=== PATIENT | female | born 1940 | race Caucasian/White ===

== ENCOUNTER 2021-12-31 02:03 | Emergency (ER) | payer MEDICARE ==
--- OUTSIDE RECORDS SUMMARY | 2021-12-31 02:07 | XMS REPORT | Continuity of Care Document ---
:1940 Author Organization [facility] t Address [address] [place] [id number] Care Team Providers Name Role Phone Les ANGEL JR Primary Care Physician Unavailable Deshazo_T Attending Clinician Unavailable CURRY_S Attending Clinician Unavailable RADIOLOGY Attending Clinician Unavailable Radiology Attending Clinician Unavailable Deshazo_T Admitting Clinician Unavailable CURRY_S Admitting Clinician Unavailable Payers Payer Name Policy Type Policy Number Effective Date Expiration Date [facility] [id number] 2020 (MEDICARE 00:00:00 REPLACEMENT HMO) MEDICARE PART A \T\ [id number] 2003 B 00:00:00 [employer] INDE[employer]ITY [id number] 2019 2021 00:00:00 00:00:00 Problems Condition Condition Condition Status Onset Resolution Last Treating Co mments Source Name Details Category Date Date Treatment Clinician Date G47.33 Diagnosis Active 2017-11-17 Mem oria 11-01 09:10:00 l G47.33 00:00: [place] 00 Active 11/01/2017 [facility] [place] ABNORMAL Diagnosis Active 2017-10-25 M emoria STRESS 10-25 14:58:00 l TEST ABNORMAL 14:58: Kevin n STRESS 00 TEST Active 10/25/2017 [facility] [place] ABN STESS Diagnosis Active 2017-10-27 Memoria TEST 10-20 13:32:00 l ABN 00:00: [place] STESS TEST 00 Active 10/20/2017 [place] JUSTIN Diagnosis Active 2017-10-06 Mem oria 3-08 14:13:00 l JUSTIN 00:00: [place] 00 Active 09/30/2017 [place] R06.02 Diagnosis Active 2017-10-13 Mem oria I11.9 09-21 08:59:00 l R06.02 00:00: [place] I11.9 00 Active 09/21/2017 [place] SOB Diagnosis Active 2017-09-13 Mem oria 2-08 11:00:00 l SOB 00:00: [place] 00 Active 09/02/2017 [place] Shortness Problem 2018-01-19 Me moria of breath 12:11:13 l [place] Shortness of breath 01/19/2018 [place] Palpitatio Problem 2018-02-02 M emoria ns 13:10:43 l [place] Palpitatio ns 02/02/2018 [place] Obstructiv Problem Active 2019-07-14 M emoria e sleep 05:56:20 l apnea [place] syndrome Obstructiv e sleep apnea syndrome Active Problem 07/14/2019 eCW: [facility] [place] Hypertensi Problem 2018-02-02 M emoria ve heart 13:10:43 l disease [place] without Hypertensi heart ve heart failure disease without heart failure 02/02/2018 [place] Type 2 Problem 2018-02-02 Memor ia diabetes 13:10:43 l mellitus Type 2 Kevin n without diabetes complicati mellitus ons without complicati ons 02/02/2018 [place] Hyperlipid Problem 2018-02-02 M emoria emia, 13:10:43 l unspecifie Kevin n d Hyperlipid emia, unspecifie d 02/02/2018 [place] Personal Problem 2018-02-02 Mem oria history of 13:10:43 l nicotine Personal Herm daniel dependence history of nicotine dependence 02/02/2018 [place] Morbid Problem 2018-02-02 Memor ia (severe) 13:10:43 l obesity Morbid [place] due to (severe) excess obesity calories due to excess calories 02/02/2018 [place] Body mass Problem 2018-02-02 Me moria index 13:10:43 l (BMI) Body [place] 40.0-44.9, mass index adult (BMI) 40.0-44.9, adult 02/02/2018 [facility] senior care Problem Active 2019-07-14 Me moria current 05:56:20 l use of Long [place] insulin term current use of insulin Active Problem 07/14/2019 eCW: [facility] [place] Hyperlipid Problem Resolve 2019-10-26 Memoria emia d 23:06:29 l (disorder) Kevin n Hyperlipid emia (disorder) Resolved Problem 10/26/2019 [facility] [facility] [place], [facility] Dyspnea Problem Active 2019-10-26 [place] valdemar (finding) 23:06:29 l Dyspnea [place] (finding) Active Problem 10/26/2019 [facility], [facility] [place], [facility] Hypertensi Problem Active 2019-10-26 M emoria ve 23:06:29 l disorder, [place] systemic Hypertensi arterial ve (disorder) disorder, systemic arterial (disorder) Active Problem 10/26/2019 [facility], [facility] [place], [facility] Hypertensi Problem Active 2019-10-26 M emoria ve heart 23:06:29 l disease [place] (disorder) Hypertensi ve heart disease (disorder) Active Problem 10/26/2019 [facility], [facility] [place], [facility] Morbid Problem Active 2019-10-26 Memor ia obesity 23:06:29 l (disorder) Morbid Herm daniel obesity (disorder) Active Problem 10/26/2019 [facility], [facility] [place], [facility] Obstructiv Problem Active 2019-10-26 M emoria e sleep 23:06:29 l apnea [place] syndrome Obstructiv (disorder) e sleep apnea syndrome (disorder) Active Problem 10/26/2019 [facility], [facility] [place], [facility] Palpitatio Problem Active 2019-10-26 M emoria ns 23:06:29 l (finding) Dionte Palpitatio ns (finding) Active Problem 10/26/2019 [facility] [place], [facility] [place] Thallium Problem Active 2019-10-26 Mem oria stress 23:06:29 l test Thallium Kevin n abnormal stress (finding) test abnormal (finding) Active Problem 10/26/2019 [facility] [place], [facility] BMI Problem Active 2019-07-14 Memor ia 38.0-38.9, 05:56:20 l adult BMI Dionte 38.0-38.9, adult Active Problem 07/14/2019 eCW: [facility] [place] LVH (left Problem Active 2019-07-14 Me moria ventricula 05:56:20 l r LVH [place] hypertroph (left y) ventricula r hypertroph y) Active Problem 9 eCW: [facility] [place] Type 2 Problem Active 2019-07-14 Memor ia diabetes 05:56:20 l mellitus Type 2 Kevin n with diabetes hyperglyce mellitus manas, with unspecifie hyperglyce d long manas, term unspecifie insulin d long use status term insulin use status Active Problem 07/14/2019 eCW: [facility] [place] Primary Problem Active 2019-07-14 [place] valdemar osteoarthr 05:56:20 l itis of Primary Kevin n right knee osteoarthr itis of right knee Active Problem 07/14/2019 eCW: [facility] BMI Problem Active 2019-07-14 Memor ia 37.0-37.9, 05:56:20 l adult BMI [place] 37.0-37.9, adult Active Problem 07/14/2019 eCW: [facility] Chronic Diagnosis Active 2019-07-14 Me moria kidney 05:56:20 l disease Chronic Kevin n (CKD) kidney stage disease G3b/A2, (CKD) moderately stage decreased G3b/A2, glomerular moderately filtration decreased rate (GFR) glomerular between filtration 30-44 rate (GFR) mL/min/1.7 between 3 square 30-44 meter and mL/min/1.7 albuminuri 3 square a meter and creatinine albuminuri ratio a between creatinine 30-299 ratio mg/g between 30-299 mg/g Active Diagnosis 07/14/2019 eCW: [facility] [place] Insomnia Diagnosis Active 2019-07-14 M emoria 05:56:20 l Insomnia Kevin n Active Diagnosis 07/14/2019 eCW: [facility] Sleep Problem Active 2019-07-14 Memor ia disorder 05:56:20 l Sleep [place] disorder Active Problem 07/14/2019 eCW: [facility] Other Problem Active 2019-07-14 Memor ia chronic 05:56:20 l pain Other [place] chronic pain Active Problem 07/14/2019 eCW: [facility] Mixed Problem Active 2019-07-14 Memor ia hyperlipid 05:56:20 l emia Mixed [place] hyperlipid emia Active Problem 07/14/2019 eCW: [facility] Age-relate Problem Active 2019-07-14 M emoria d 05:56:20 l osteoporos Kevin n is without Age-relate current d pathologic osteoporos al is without fracture current pathologic al fracture Active Problem 07/14/2019 eCW: [facility] Major Diagnosis Active 2019-07-14 Mem oria depressive 05:56:20 l disorder 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, with in full single remission episode, in full remission Active Diagnosis 07/14/2019 eCW: [facility] Encounter Diagnosis Active 2019-07-14 Memoria for 05:56:20 l immunizati Kevin n on Encounter for immunizati on Active Diagnosis 07/14/2019 eCW: [facility] Leg edema Diagnosis Active 2019-07-11 Memoria 05:33:18 l Leg [place] edema Active Diagnosis 07/11/2019 eCW: [facility] Viral Diagnosis Active 2019-07-10 Mem oria upper 05:11:22 l respirator Viral Autumn nn y tract upper infection respirator y tract infection Active Diagnosis 07/10/2019 eCW: [facility] Encounter Diagnosis Active 2019-07-10 Memoria for 05:11:22 l therapeuti Kevin n c drug Encounter monitoring for therapeuti c drug monitoring Active Diagnosis 07/10/2019 eCW: [facility] Sebaceous Diagnosis Active 2019-07-05 Memoria cyst 05:56:56 l [place] Sebaceous cyst Active Diagnosis 07/05/2019 eCW: [facility] Cellulitis Diagnosis Active 2019-07-05 Memoria of 05:56:56 l abdominal [place] wall Cellulitis of abdominal wall Active Diagnosis 07/05/2019 eCW: [facility] Chills Diagnosis Active 2019-07-08 Mem oria (without 05:25:25 l fever) Chills [place] (without fever) Active Diagnosis 07/08/2019 eCW: [facility] Subacute Diagnosis Active 2019-07-08 M emoria maxillary 05:25:25 l sinusitis Subacute Her back maxillary sinusitis Active Diagnosis 07/08/2019 eCW: [facility] Body aches Diagnosis Active 2019-07-08 Memoria 05:25:25 l Body [place] aches Active Diagnosis 07/08/2019 eCW: [facility] Cough Diagnosis Active 2019-07-08 Mem oria 05:25:25 l Cough [place] Active Diagnosis 07/08/2019 eCW: [facility] Encounter Diagnosis Active 2019-07-14 Memoria for other 05:56:20 l general Dion[place] examinatio Encounter n for other general examinatio n Active Diagnosis 07/14/2019 eCW: [facility] Fatigue, Diagnosis Active 2019-07-14 M emoria unspecifie 05:56:20 l d type Fatigue, Kevin n unspecifie d type Active Diagnosis 07/14/2019 eCW: [facility], JERMAINE Essential Diagnosis Active 2018-01-19 2019-07-14 Memoria hypertensi 10-19 12:11:13 05:56:20 l on 03:30: Dionte Essential 13 hypertensi on Active Diagnosis 07/14/2019 eCW: [facility], JERMAINE History of Past Illness Condition Condition Condition Status Onset Resolution Last Treating Co mments Source Name Details Category Date Date Treatment Clinician Date Atheroscle Problem 2018-02-02 2018-02-02 Memoria rotic 11-04 13:10:43 13:10:43 l heart 03:53: [place] disease of [place] [address] [place] ro[place] 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 [place] angina coronary pectoris artery without angina pectoris 8 02/02/2018 [facility] Abnormal Problem 2018-01-31 2018-01-31 Memoria result of 11-02 13:58:17 13:58:17 l other Abnormal 04:27: Kevin valle cardiovasc result of 53 ular other function cardiovasc study ular function study 11/02/2017 01/31/2018 ANNA FLOYD [place] Allergies, Adverse Reactions, Alerts Allergy Allergy Status Severity Reaction(s) Onset Inactive Treating Comm ents Source Name Type Date Date Clinician Codeine Codeine Active Info Not Memori a Phosphat Phosphat Available 03-22 l e e 00:00: Aromatic Aromatic Active Info Not Tigre valdemar Inhalant Inhalant Available 03-22 l s s 00:00: Aromasin Aromasin Active Info Not Tigre valdemar Available 03-22 l 00:00: acr acr Active Info Not Memoria Available 03-22 l 00:00: NO KNOWN Drug Active Univers ALLERGIE Class ity of [facility] E-Mycin E-Mycin Active Roddyoria l [place] Social History Smoking Status Start Date Stop Date Source Social History 2017-11-24 13:51:35 2017-11-24 13:51:[facility] Ordered Filled Start Stop Current Ordering Indication Dosage Frequency Signature Comments Components Source Medication Medication Date Date Medication? Clinician (SIG) Name Name Amlodipine 2018-07 Yes Naima 1 tablet M emoria Besylate 2-20 Chin l 05:56: Dionte 20 Hydrochloro 2018-07 Yes Naima 1 tablet Memoria thiazide 2-20 Chin in the l 05:56: morning [place] 20 Metoprolol 2018-07 Yes Naima 1 capsule Memoria Succinate 2-20 Chin l 05:56: [place] 20 Amlodipine 2018-07 Yes Naima 1 tablet M emoria Besylate 2-20 Chin l 05:56: [place] 20 Zolpidem 2018- Yes Naima 1 tablet Mem oria Tartrate 2-20 Chin at bedtime l 05:56: [place] 20 Lisinopril 2018- Yes Naima 1 tablet M emoria 2-20 Chin l 05:56: [place] 20 CoQ-10 2018-07 Yes Naima 1 capsule Tigre valdemar 2-20 Chin with a l 05:56: meal Dion[place] 20 Belsomra 2018-07 Yes Naima once at Tigre valdemar 2-20 Chin bedtime l 05:56: [place] 20 Claritin-D 2018-07 Yes Naima 1 tablet M emoria 12 Hour 2-20 Chin as needed l 05:56: Escitalopra 2018- Yes Naima 1 tablet Memoria m Oxalate 2-20 Chin l 05:56: Metformin 2018- Yes Naima 1 tablet Me moria HCl 2-20 Chin with meals l 05:56: Lantus 2018- Yes [place]aim[place] not Memoria SoloStar 2-20 Chin defined l 05:56: Vitamin C 2018- Yes Naima not Memori a 2-20 Chin defined l 05:56: Amlodipine 2018- Yes Naima 1 tablet M emoria Besylate 2-14 Chin l 05:25: Zolpidem 2018- Yes Naima 1 tablet Mem oria Tartrate 0-11 Chin at bedtime l 00:00: Xultophy 2019-1 Yes Naima 50 units Mem oria 0-04 Chin l 00:00: Trazodone 2019-0 Yes Naima 1 tablet Me moria HCl 6-12 Chin at bedtime l 00:00: Belsomra 2019-0 Yes Naima once at Tigre valdemar 4-05 Chin bedtime l 00:00: Xultophy 2019-0 Yes Naima 50 units Mem oria 3-20 Chin l 00:00: Crestor 2019-0 Yes Naima 1 tablet Tigre valdemar 2-20 Chin l 00:00: Xultophy 2019-0 Yes Naima 20 units Mem oria 2-19 Chin once l 00:00: daily, titrate as directed Amoxicillin 2017- Yes Naima 1 tablet Memoria -Pot 2-19 Chin l Clavulanate 00:00: Kevin Tessalon 2017- Yes Naima 1 capsule Me moria Perles 2-19 Chin as needed l 00:00: Bactroban 2017- Yes Naima 1 Memori a 1-12 Chin applicatio l 00:00: n to affected area Belsomra 2018- Yes Naima 1 tablet Mem oria 1-12 Chin at bedtime l 00:00: as needed [place] 00 24 HR 2017-07 Yes 50 mg = 1 Memoria Metoprolol 0-05 tab, PO, l Tartrate 50 19:07: Daily, # Roger rmann MG Extended 90 tab, 3 Release Refill(s), Tablet Pharmacy: [Toprol] [facility] cy #[id number] 24 HR 2017-07 No 50 mg = 1 Memoria Metoprolol 0-02 tab, PO, l Tartrate 50 15:38: Daily, X Roger rmann MG Extended day, # Release 90 tab, 3 Tablet Refill(s), [Toprol] Pharmacy: [id number] Naima 40 units Mem oria 9-20 Chin once l 00:00: daily, titrate as directed Pravastatin Yes Naima 1 tablet Memoria Sodium 6-14 Chin l 00:00: CPAP Yes See Memoria Machine - Instructio l 12:59: ns, 6-12 Dionte 00 cm auto-titra ting downloadab le device E0601 with heated humidity 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 G47.33 with PAP supplies, # 1 ea, 0 Refill(s) CPAP Yes 1 ea, Memoria Machine 11-24 MISC, l 16:12: Daily, Auto CPAP 6-12 cm H20 with associated supplies and heated humidifier , # 1 ea, 0 Refill(s) Ibuprofen Yes 400 mg = 2 Me moria 200 MG Oral 4-04 tab, PO, l Tablet 18:58: Q4H, PRN Pain, # 120 tab, 0 Refill(s) Aspirin 81 Yes 81 mg = 1 Me moria MG Enteric 4-04 tab, PO, l Coated 18:58: Daily, # Dionte Tablet 00 90 tab, 3 Refill(s) MegaKrill Yes 0 Memoria 4-04 Refill(s) l 18:58: Dion[place] 00 Sodium No 1,000 mL, Memori a Chloride 4-04 IV, 75 l 0.9% IV 12:00: ml/hr, Dionte 00 ONCALL, Start date: 10/27/17 7:00:00 CDT, Duration: 1, 1,000 ml Aminophylli No 50 mg, 2 Me moria ne 3-21 mL, Route: l 16:19: IV, Drug form: INJ, ONCE, Dosing Weight 102, kg, Start date: 10/13/17 11:19:00 CDT, Stop date: 10/13/17 11:19:00 CDT 24 HR Yes 50 mg = 1 Memoria Metoprolol 2-21 tab, PO, l Tartrate 50 20:54: Daily, # He rmann MG Extended 30 tab, 5 Release Refill(s), Tablet Pharmacy: [Toprol] [facility]/[employer] [facility] cy #[id number] Claritin Yes 5 mg, Memoria 2-21 Daily, PRN l 20:52: as needed for allergy symptoms, 0 Refill(s) Hydrochloro Yes 25 mg, PO, Memoria thiazide 2-21 Daily, 0 l 20:51: Refill(s) Dion[place] 00 3 ML Yes 38 units, Memoria Insulin 2-21 SUB-Q, l Glargine 20:51: Daily, # 3 Her back 100 UNT/ML 00 mL, 0 Prefilled Refill(s) Syringe [Lantus] 3 ML No baldemar, Memoria liraglutide 2-21 SUB-Q, l 6 MG/ML 20:51: Daily, # 6 Herm daniel Prefilled 00 mL, 3 Syringe Refill(s) [Victoza] escitalopra Yes 10 mg = 1 M emoria m 10 mg 2-21 tab, PO, l oral tablet 20:49: Daily, # Roger rmann 00 30 tab, 0 Refill(s) CoQ10 No 300 mg, Memoria 2-21 PO, Daily, l 20:49: 0 Dion[place] 00 Refill(s) zolpidem 5 2018 Yes 5 mg = 1 Mem oria mg oral 2-21 tab, PO, l tablet 20:49: Bedtime, PRN Sleep, 0 Refill(s) amLODIPine Yes 2.5 mg = 1 M emoria 2.5 mg oral 2-21 tab, PO, l tablet 20:49: Daily, # [place] 00 30 tab, 0 Refill(s) metFORMIN Yes 1,000 mg = Me moria 1000 mg 2-21 1 tab, PO, l oral 20:49: Daily, # [place] tablet, 00 30 tab, 0 extended Refill(s) release Metformin 2017- Yes Naima 1 tablet Me moria HCl 1-13 Chin with meals l 00:00: Dion[place] 00 Immunizations Ordered Immunization Filled Immunization Date Status Commen ts Source Name Name Jacob 2019-03-22 Completed [facility] 00:00:00 [place] Prevnar 13 (MCR 2018-10-12 Completed [facility] ONLY) 00:00:00 [place] Vital Signs Vital Name Observation Time Observation Value Comments Source Weight 2019-03-22 19:15:00 [facility] [place] Temperature Oral (F) 2019-03-22 19:15:00 97.6 F [facility] [place] Heart Rate 2019-03-22 19:15:00 [facility] [place] Diastolic (mm Hg) 2019-03-22 19:15:00 Mem orial [place] Systolic (mm Hg) 2019-03-22 19:15:00 Tigre rial [place] Weight 2019-01-04 20:30:00 [facility] [place] Temperature Oral (F) 2019-01-04 20:30:00 98.2 F [facility] [place] Heart Rate 2019-01-04 20:30:00 [facility] [place] Diastolic (mm Hg) 2019-01-04 20:30:00 Mem orial [place] Systolic (mm Hg) 2019-01-04 20:30:00 Tigre rial [place] Weight 2018-10-12 20:45:00 [facility] [place] Temperature Oral (F) 2018-10-12 20:45:00 98.5 F [facility] [place] Heart Rate 2018-10-12 20:45:00 [facility] [place] Diastolic (mm Hg) 2018-10-12 20:45:00 Mem orial [place] Systolic (mm Hg) 2018-10-12 20:45:00 Tigre rial [place] Weight 2018-09-13 20:00:00 [facility] [place] Temperature Oral (F) 2018-09-13 20:00:00 98.2 F [facility] [place] Heart Rate 2018-09-13 20:00:00 [facility] [place] Diastolic (mm Hg) 2018-09-13 20:00:00 Mem orial [place] Systolic (mm Hg) 2018-09-13 20:00:00 Tigre rial [place] Weight 2018-07-13 20:45:00 [facility] [place] Temperature Oral (F) 2018-07-13 20:45:00 97.7 F [facility] [place] Heart Rate 2018-07-13 20:45:00 [facility] [place] Diastolic (mm Hg) 2018-07-13 20:45:00 Mem orial [place] Systolic (mm Hg) 2018-07-13 20:45:00 Tigre rial [place] Weight 2018-06-06 20:15:00 [facility] [place] Temperature Oral (F) 2018-06-06 20:15:00 97.7 F [facility] [place] Heart Rate 2018-06-06 20:15:00 [facility] [place] Diastolic (mm Hg) 2018-06-06 20:15:00 Mem orial [place] Systolic (mm Hg) 2018-06-06 20:15:00 Tigre rial [place] Height 2018-03-09 20:18:00 160.02 cm [facility] [place] Heart Rate 2018-03-09 20:18:00 [facility] [place] Weight 2018-03-09 20:18:00 [facility] [place] BMI Calculated 2018-03-09 20:18:00 Memori al [place] Systolic (mm Hg) 2018-03-09 20:18:00 Tigre rial [place] Diastolic (mm Hg) 2018-03-09 20:18:00 Mem orial [place] Height 2017-11-24 13:50:00 160.02 cm [facility] [place] Weight 2017-11-24 13:50:00 [facility] [place] BMI Calculated 2017-11-24 13:50:00 Memori al [place] Heart Rate 2017-11-24 13:50:00 [facility] [place] Systolic (mm Hg) 2017-11-24 13:50:00 Tigre rial [place] Diastolic (mm Hg) 2017-11-24 13:50:00 Mem orial [place] Weight 2017-11-05 15:06:00 [facility] [place] BMI Calculated 2017-11-05 15:06:00 Memori al [place] Systolic (mm Hg) 2017-11-05 15:06:00 Tigre rial [place] Diastolic (mm Hg) 2017-11-05 15:06:00 Mem orial [place] Height 2017-11-05 15:06:00 152.4 cm [facility] [place] Heart Rate 2017-11-05 15:06:00 [facility] [place] BMI Calculated 2017-10-25 19:40:00 Memori al [place] Height 2017-10-25 19:40:00 160.02 cm [facility] [place] Weight 2017-10-25 19:40:00 [facility] [place] Heart Rate 2017-10-18 16:32:00 [facility] [place] Systolic (mm Hg) 2017-10-18 16:32:00 Tigre rial [place] Diastolic (mm Hg) 2017-10-18 16:32:00 Mem orial [place] Height 2017-10-18 16:32:00 160.02 cm [facility] [place] Weight 2017-10-18 16:32:00 [facility] [place] BMI Calculated 2017-10-18 16:32:00 Memori al [place] BMI Calculated 2017-10-15 15:01:00 Memori al [place] Weight 2017-10-15 15:01:00 [facility] [place] Height 2017-10-15 15:01:00 160.02 cm [facility] [place] Systolic (mm Hg) 2017-10-15 15:01:00 Tigre rial [place] Diastolic (mm Hg) 2017-10-15 15:01:00 Mem orial [place] Heart Rate 2017-10-15 15:01:00 [facility] [place] Height 2017-10-13 14:26:00 160.02 cm [facility] [place] Weight 2017-10-13 14:26:00 [facility] [place] BMI Calculated 2017-10-13 14:26:00 Memori al [place] Height 2017-09-15 20:34:00 160.02 cm [facility] [place] Weight 2017-09-15 20:34:00 [facility] [place] BMI Calculated 2017-09-15 20:34:00 Memori al [place] Heart Rate 2017-09-15 20:34:00 [facility] [place] Systolic (mm Hg) 2017-09-15 20:34:00 Tigre rial [place] Diastolic (mm Hg) 2017-09-15 20:34:00 Mem orial [place] Weight 2017-09-13 19:46:00 [facility] [place] BMI Calculated 2017-09-13 17:40:00 Memori al [place] Height 2017-09-13 17:40:00 160.02 cm [facility] [place] Procedures This patient has no known procedures. Encounters Start End Encounter Admission Attending Care Care Encounter Source Date/Time Date/Time Type Type Clinicians Facility Department ID 2021-11-17 2021-11-17 Outpatient Deshazo_T [facility] [id number] -2021 [facility] 07:03:00 07:03:00 042 [facility] 2021-11-13 2021-11-13 [place] [facility] [place] [id number] [facility] 02:47:00 02:47:00 042 Medica l Group 2021-03-18 2021-03-18 Outpatient CURRY_S [facility] [id number] [facility] 03:30:00 03:30:00 [id number] Medica l Group 2021-02-20 2021-02-20 Outpatient CURRY_S [facility] G [id number] [facility] 06:13:00 06:13:00 0729 Medica l Group 2019-10-23 2019-10-25 Phone nullFlavo MNA [id number] Memoria 15:43:36 04:59:59 Message r Neuroscienc 09 l e [facility] 2019-09-21 2019-09-21 Ambulatory nullFlavo MNA [id number] Memoria 16:00:00 16:00:00 Pre-Reg r Neuroscienc 10 l e [facility] 2019-09-20 2019-09-20 Outpatient R RADIOLOGY [facility] [id number] Univers 09:48:52 23:59:00 [facility] 2019-09-20 2019-09-20 Hospital Radiology [facility] [id number] 09:48:00 23:59:00 Encounter [place] [id number] [place] [id number] [place] [address] [id number] 2019-09-20 2019-09-20 [facility] Radiology [facility] [id number] 09:45:00 09:47:00 Encounter [place] [id number] [place] [id number] [place] [address] [id number] 2019-09-20 2019-09-20 Outpatient R RADIOLOGY [facility] [id number] Univers 00:00:00 00:00:00 [id number] [facility] 2019-08-25 2019-08-25 [facility] Radiology [facility] [id number] 10:15:00 23:59:00 Encounter [place] [id number] [place] [id number] [place] [id number] 2018-04-29 2018-05-01 Phone nullFlavo MG [id number] Memoria 17:42:00 04:59:59 Message r Cardiology 08 l [facility] 2018-04-26 2018-04-28 Phone nullFlavo MG [id number] Memoria 13:57:00 04:59:59 Message r Cardiology 07 l [facility] 2018-04-01 2018-04-01 Ambulatory nullFlavo [facility] [id number] Memoria 15:30:00 15:30:00 Pre-Reg r Cardiology 09 l [facility] 2018-03-09 2018-03-10 Outpatient nullFlavo [facility] [id number] Memoria 20:15:00 04:59:59 r Cardiology 08 l [place] 2018-02-07 2018-02-07 [place] [id number] Memoria 16:15:00 16:15:00 Pre-Reg r Cardiology 06 l [place] 2017-12-30 2017-12-30 Ambulatory nullFlavo MTA [id number] Memoria 19:30:00 19:30:00 Pre-Reg r Neuroscienc 07 l e [facility] [facility] 2017-12-08 2017-12-10 Phone nullFlavo MNA [id number] Memoria 17:41:00 04:59:59 Message r Neuroscienc 06 l e [facility] 2017-11-30 2017-12-02 Phone nullFlavo MNA [id number] Memoria 20:54:00 04:59:59 Message r Neuroscienc 05 l e [facility] 2017-11-29 2017-12-01 Phone nullFlavo MNA [id number] Memoria 14:30:00 04:59:59 Message r Neuroscienc 04 l e [facility] 2017-11-24 2017-11-25 Outpatient nullFlavo MNA [id number] Memoria 13:30:00 04:59:59 r Neuroscienc 04 l e [facility] 2017-11-16 2017-11-17 Outpatient nullFlavo [facility] [id number] Memoria 20:00:00 04:59:00 r Dionte The [facility] 2017-11-05 2017-11-06 Outpatient nullFlavo [facility] [id number] Memoria 14:45:00 04:59:59 r Cardiology 05 l [place] 2017-11-01 2017-11-03 Phone nullFlavo MNA [id number] Memoria 19:14:00 04:59:59 Message r Neuroscienc 03 l e [facility] 2017-10-29 2017-10-31 Phone nullFlavo MNA [id number] Memoria 21:16:00 04:59:59 Message r Neuroscienc 02 l e [facility] 2017-10-27 2017-10-27 Bedded [facility]Flavo [facility] [id number] Memoria 18:32:00 21:49:00 Outpatient r Dionte [address] 2017-10-25 2017-10-26 Outpt Diag nullFlavo [facility] [id number] Memoria 19:56:00 04:59:00 Services r Outpatient 92 l Imaging [facility] 2017-10-21 2017-10-21 Ambulatory nullFlavo [facility] [id number] Memoria 16:30:00 16:30:00 Pre-Reg r Cardiology 01 l [facility] 2017-10-18 2017-10-20 Phone nullFlavo MNA [id number] Memoria 19:10:00 04:59:59 Message r Neuroscienc 01 l e [facility] 2017-10-18 2017-10-19 Outpatient nullFlavo [facility] [id number] Memoria 16:15:00 04:59:59 r Cardiology 03 l [place] 2017-10-15 2017-10-16 Outpatient nullFlavo MNA [id number] Memoria 14:30:00 04:59:59 r Neuroscienc 02 l e [facility] 2017-10-13 2017-10-15 Phone nullFlavo MNA [id number] Memoria 15:59:00 04:59:59 Message r Neuroscienc 00 l e [facility] 2017-10-13 2017-10-14 Outpatient [facility]Flavo [facility] [id number] Memoria 13:59:00 04:59:00 r Dionte [facility] 2017-10-06 2017-10-07 Outpatient nullFlavo [facility] [id number] Memoria 19:07:00 04:59:00 r [facility] 2017-09-15 2017-09-16 Outpatient nullFlavo [facility] [id number] Memoria 19:45:00 05:59:59 r Cardiology 00 l [place] 2017-09-13 2017-09-14 Outpatient nullFlavo [facility] [id number] Memoria 16:53:00 05:59:00 [place] [facility] Results Test Description Test Time Test Comments Results Result Comments Source HEMATOLOGY 2017-10-25 20:44:00 Test Item Value Reference Range Interpretation Comme nts MCH (test code = MCH) 29.8 pg 27.0-31.0 [facility]QihjsjtBWIHRYKLPY8699-57-50 20:44:00 Test Item Value Reference Range Interpretation Comments Platelet (test code = Platelet) 233 133-450 [facility] CenterHefbtgzUJBTTJUYOJ6377-30-58 20:44:00 Test Item Value Reference Range Interpretation Comments Basophils # (test code 0.1 See_Comment [Aut omated message] The = Basophils #) system which generated this result tra nsmitted reference range : <=0.2. The reference r tiffanie was not used to int erpret this result as normal/abnormal . [facility] CenterVgzkkpdDEZMDOGPOI5174-67-49 20:44:00 Test Item Value Reference Range Interpretation Comments Eosinophils # (test code 0.2 See_Comment [A utomated message] The = Eosinophils #) system [facility] h generated this result tra nsmitted reference range : <=0.5. The reference r tiffanie was not used to int erpret this result as normal/abnormal . [facility] CenterNlfcqlnXPIUJPJFNX2406-69-90 20:44:00 Test Item Value Reference Range Interpretation Comments Basophils (test code = 0.9 See_Comment [Aut omated message] The Basophils) system which ge nerated this result tra nsmitted reference range : <=1.0. The reference r tiffanie was not used to int erpret this result as normal/abnormal . [facility] CenterHaijctaBCRVDEZKIE9260-41-32 20:44:00 Test Item Value Reference Range Interpretation Comments Segs-Bands # (test code = Segs-Bands #) 4.6 1.5-8.1 [facility] CenterUigjsgbPCOHXJNCCG7374-54-04 20:44:00 Test Item Value Reference Range Interpretation Comments Monocytes # (test code 0.5 See_Comment [Aut omated message] The = Monocytes #) system which generated this result tra nsmitted reference range : <=0.8. The reference r tiffanie was not used to int erpret this result as normal/abnormal . [facility] CenterRovnzzuFTZULEIWAG7526-25-22 20:44:00 Test Item Value Reference Range Interpretation Comments Lymphocytes # (test code = Lymphocytes 2.6 1.0-5.5 #) [facility] CenterSifchzyDLGKRPVKZA8310-93-48 20:44:00 Test Item Value Reference Range Interpretation Comments Monocytes (test code = Monocytes) 6.1 2.0-12.0 [facility] CenterKchfanrEKJIQWKMYF3898-54-58 20:44:00 Test Item Value Reference Range Interpretation Comments Segs (test code = Segs) 57.8 45.0-75.0 [facility] CenterJauoufgAJKDSKGMCN8577-95-22 20:44:00 Test Item Value Reference Range Interpretation Comments Eosinophils (test code = 2.6 See_Comment [A utomated message] The Eosinophils) system which ge nerated this result tra nsmitted reference range : <=4.0. The reference r tiffanie was not used to int erpret this result as normal/abnormal . [facility] CenterYhpnlapRNPERRSGKQ8075-42-62 20:44:00 Test Item Value Reference Range Interpretation Comments Lymphocytes (test code = Lymphocytes) 32.6 20.0-40.0 [facility]DID3142[facility]85-72 20:44:00 Test Item Value Reference Range Interpretation Comments VLDL (test code = VLDL) 46 1 [facility] HospitalYenuomaAHNWFN1536-11-88 20:44:00 Test Item Value Reference Range Interpretation Comments LDL (Calculated) (test code = LDL 123 (Calculated)) [facility] HospitalZslysgyVEWTHQ5107-29-56 20:44:00 Test Item Value Reference Range Interpretation Comments HDL (test code = HDL) 48 [facility] HospitalPdmlylmOPZHVE6239-23-03 20:44:00 Test Item Value Reference Range Interpretation Comments Trig (test code = Trig) 229 [facility] HospitalDialxxyFVQLRO7357-24-80 20:44:00 Test Item Value Reference Range Interpretation Comments Chol (test code = Chol) 217 [facility] CenterPstitybDMLDFM1260-43-09 20:44:00 Test Item Value Reference Range Interpretation Comments CHD Risk (test code = CHD Risk) 4.52 1 3.90-5.80 [facility]YcacrlnTEEAWLOLJELR2165-62-12 20:44:00 Test Item Value Reference Range Interpretation Comments AGAP (test code = AGAP) 14.8 10.0-20.0 [facility] RegionPlupemyPTFOTYQXWQQK4471-37-35 20:44:00 Test Item Value Reference Range Interpretation Comments eGFR (test code = eGFR) 51 [facility] RegionVldwkzcUKBBBUXTSQGT8009-60-81 20:44:00 Test Item Value Reference Range Interpretation Comments Calcium Lvl (test code = Calcium Lvl) 9.2 8.5-10.5 [facility] RegionDedlbwtTNPRNTZZYXXF0851-42-25 20:44:00 Test Item Value Reference Range Interpretation Comments CO2 (test code = CO2) 26 24-32 [facility] RegionWbuzornDLFIKBOMIICH2617-92-63 20:44:00 Test Item Value Reference Range Interpretation Comments Chloride Lvl (test code = Chloride Lvl) 101 95-109 [facility] RegionBmkyjpwUVAEWQQYJPZS4593-78-50 20:44:00 Test Item Value Reference Range Interpretation Comments Sodium Lvl (test code = Sodium Lvl) 138 135-145 [facility] RegionNmahaqqYIFSUZUDBICA3799-30-10 20:44:00 Test Item Value Reference Range Interpretation Comments Potassium Lvl (test code = Potassium 3.8 3.5-5.1 Lvl) [facility] RegionCxovcbrUOBYDFPWRQPH8661-75-10 20:44:00 Test Item Value Reference Range Interpretation Comments Creatinine Lvl (test code = Creatinine 1.05 0.50-1.40 Lvl) [facility] RegionZfoigoiXYLZTUUXTEAU2892-97-05 20:44:00 Test Item Value Reference Range Interpretation Comments BUN (test code = BUN) 22 7-22 [facility] RegionIuridqvXWQIIEBOBOZU6993-08-64 20:44:00 Test Item Value Reference Range Interpretation Comments Glucose Lvl (test code = Glucose Lvl) 297 70-99 [facility] CenterSjyozvsWLRCBLHZWD6981-84-02 20:44:00 Test Item Value Reference Range Interpretation Comments INR (test code = INR) 1.05 1 0.85-1.17 [facility] CenterSleqrswHPLXGMAGRX3683-49-54 20:44:00 Test Item Value Reference Range Interpretation Comments PTT (test code = PTT) 31.7 s 22.9-35.8 [facility] CenterBumxtiiIWLTKDPMPV4012-79-46 20:44:00 Test Item Value Reference Range Interpretation Comments PT (test code = PT) 13.7 s 12.0-14.7 [facility] CenterGdywqfiPCQOSZMFQX8658-58-13 20:44:00 Test Item Value Reference Range Interpretation Comments RBC (test code = RBC) 4.55 4.20-5.40 [facility] CenterFktqokzVAGGRABKWB4525-84-05 20:44:00 Test Item Value Reference Range Interpretation Comments WBC (test code = WBC) 8.0 3.7-10.4 [facility] CenterZyhhgvcYJDBSXRAKZ7994-50-16 20:44:00 Test Item Value Reference Range Interpretation Comments Hct (test code = Hct) 40.2 36.0-48.0 [facility] CenterXttxdsqCVNXTHKKYH6920-94-22 20:44:00 Test Item Value Reference Range Interpretation Comments Hgb (test code = Hgb) 13.6 12.0-16.0 [facility] CenterLnjvdvhMWOMCAMMKL4335-81-26 20:44:00 Test Item Value Reference Range Interpretation Comments MPV (test code = MPV) 9.4 7.4-10.4 [facility] CenterEfbhkruJJHVZGGJCV1220-54-28 20:44:00 Test Item Value Reference Range Interpretation Comments MCHC (test code = MCHC) 33.7 32.0-36.0 [facility] CenterTwvbllfSEBIVCMNDV9863-11-25 20:44:00 Test Item Value Reference Range Interpretation Comments MCV (test code = MCV) 88.5 80.0-98.0 [facility] CenterDsnjaekQAINTCZAUK2333-30-09 20:44:00 Test Item Value Reference Range Interpretation Comments RDW (test code = RDW) 13.7 11.5-14.5 [facility]
[2021-12-31 03:04] LABS: Absolute Lymphocytes (CBC) 2.4 K/uL (0.7-4.9); Hematocrit 44.8 % (36.0-45.0); Lymphocytes % 25.8 % (15.3-44.8); MPV 8.3 fL (7.6-11.3); RBC Red Blood Cell Count 5.06 M/uL (3.86-4.86)
[2021-12-31 03:11] LABS: Protime INR 1.08
[2021-12-31 03:21] LABS: ALT/SGPT 20 U/L (12-78); AST/SGOT 13 U/L (15-37); Albumin 3.5 g/dL (3.4-5.0); Alkaline Phosphatase 67 U/L (45-117); BUN Blood Urea Nitrogen 37 mg/dL (7-18); Bicarbonate 27 mmol/L (21-32); Bilirubin Direct 0.1 mg/dL (0-0.2); Bilirubin Total 0.4 mg/dL (0.2-1.0); Glomerular Filtration Rate 53 ml/min (=/>90); Glucose Level 158 mg/dL (74-106); Potassium 4.1 mmol/L (3.5-5.1); Protein, Total 7.2 g/dL (6.4-8.2); Sodium Level 141 mmol/L (136-145)
--- NOTE | 2021-12-31 07:52 | EKG ---
Test Date: 2021-12-31 Test Time: 02:40:06 [employer] Supervisor: MEASUREMENT RESULTS: Intervals: Rate: 80 AK: 180 QRSD: 74 QT: 416 QTc: 479 Hooper: P: 36 AK: 180 QRS: -5 T: 50 INTERPRETIVE STATEMENTS: Normal sinus rhythm Normal ECG Compared to ECG 10/20/2021 14:43:35 First degree AV block no longer present Electronically Signed On 12-31-21 07:52:23 CDT by Herbert Padilla
[2021-12-31 08:05] LABS: Urine Blood Negative (Negative); Urine Glucose Negative (Negative); Urine Protein Negative (Negative); Urine Specific Gravity 1.025 (1.005-1.030)
[2021-12-31 09:24] LABS: Barbiturates NEGATIVE (NEGATIVE); Benzodiazepines NEGATIVE (NEGATIVE); Cocaine NEGATIVE (NEGATIVE); METHAMPHETAM NEGATIVE (NEGATIVE); Methadone NEGATIVE (NEGATIVE); Opiates NEGATIVE (NEGATIVE); Phencyclidine NEGATIVE (NEGATIVE); THC Cannibis NEGATIVE (NEGATIVE)
--- NOTE | 2021-12-31 10:03 | ER ---
Nurse's Notes [facility] [place] Name: Ana Munson Age: 81 yrs Sex: Female : 1940 Arrival Date: 12/31/2021 Time: 02:05 Bed 6 Private MD: Diagnosis: Accidental Lexipro overdose Presentation: 12/31 02:23 Chief complaint: Patient states: I accidently took too many of my Lexapro pills. I jb4 think I took about 9-10. Coronavirus screen: At this time, the client does not indicate any symptoms associated with coronavirus-19. Ebola Screen: No symptoms or risks identified at this time. Initial Sepsis Screen: Does the patient meet any 2 criteria? No. Patient's initial sepsis screen is negative. Does the patient have a suspected source of infection? No. Patient's initial sepsis screen is negative. Risk Assessment: Do you want to hurt yourself or someone else? Patient reports no desire to harm self or others. Onset of symptoms was December 31, 2021. Transition of care: patient was not received from another setting of care. 02:23 Method Of Arrival: Ambulatory jb4 02:23 Acuity: JOHNNY 2 jb4 02:23 Note Poison Control called with pt report of pt having taken Lexapro 20 mg x 10 bb accidentally at approx 0030 tonight. Case # [id number]. Their recommendations are to monitor pt x 8 hours with a repeat EKG at 6 hours, monitor for lethargy and altered mental status, with cardiac monitoring for QTC prolongation and QRS widening. Triage Assessment: 02:53 General: Appears in no apparent distress. Behavior is calm, cooperative. as6 Historical: - Allergies: 02:25 No Known Allergies; jb4 - Home Meds: 02:25 Lexapro Oral [Active]; jb4 - PMHx: 02:25 DM; HTN; Anxiety; depression; jb4 - PSHx: 02:25 Right religion biopsy; hysterectomy; jb4 - Immunization history:: Adult Immunizations not up to date. - Social history:: Smoking status: Patient denies any tobacco usage or history of. Screenin:52 Abuse screen: Denies threats or abuse. Denies injuries from another. Nutritional as6 screening: No deficits noted. Tuberculosis screening: No symptoms or risk factors identified. Fall Risk None identified. Assessment: 02:22 General: poison controlled called Q Ct widing more than 470. Labs not required. Slight tw5 confusion. observation time is 6-8. Cardiac monitoring. [id number]. 02:25 Pain: Denies pain. tw5 06:13 General: "I have sciatic and I didn't take my pain medication last night" pt c/o pain as6 to left leg. pt repositioned, provider notified . 06:45 General: Nurys [phone]. as6 07:00 Reassessment: RECD REPORT FROM MICKEY KAPOOR. 81YO WF P/W ACCIDENTAL LEXAPRO OD. PT TO bp REMAIN ON OBS UNTIL 10AM. 10:15 Reassessment: PT D/C ON HOLD FOR FAMILY TRANSPORT HOME. bp Overdose: 02:53 Alpha Suicide Severity Screening: "In the past month, have you wished you were as6 or wished you could go to sleep and not wake up?" Patient responds "no." "In the past month, have you actually had any thoughts of killing yourself?" Patient responds "no." "In your lifetime, have you ever done anything, started to do anything, or prepared to do anything to end your life?" Patient responds "no.". 07:00 Alpha Suicide Severity Screening: "In the past month, have you wished you were bp or wished you could go to sleep and not wake up?" Patient responds "no." "In the past month, have you actually had any thoughts of killing yourself?" Patient responds "no.". Vital Signs: 02:23 BP 161 / 52; Pulse 89; Resp 16; Temp 97.7; Pulse Ox 95% on R/A; Weight 104.33 kg (R); jb4 Height 5 ft. 2 in. (157.48 cm) (R); Pain 0/10; 03:44 BP 141 / 52; Pulse 73; Resp 12 S; Pulse Ox 94% on R/A; as6 05:00 BP 126 / 59; Pulse 78; Resp 12 S; Pulse Ox 93% on R/A; as6 06:13 BP 152 / 54; Pulse 76; Resp 14 S; Pulse Ox 94% on R/A; as6 07:00 BP 131 / 61; Pulse 75; Resp 15; Pulse Ox 94% ; bp 10:00 BP 127 / 57; Pulse 78; Resp 14; Pulse Ox 94% ; bp 02:23 Body Mass Index 42.07 (104.33 kg, 157.48 cm) jb4 ED Course: 02:05 Patient arrived in ED. ja2 02:15 Mickey Parikh, EMELIA is Primary Nurse. as6 02:19 Bry Mejia MD is Attending Physician. 7 02:25 Triage completed. jb4 02:25 Arm band placed on right wrist. jb4 02:52 Placed in gown. Bed in low position. Call light in reach. Side rails up X2. Adult w/ as6 patient. Client placed on continuous cardiac and pulse oximetry monitoring. NIBP monitoring applied. Warm blanket given. 02:52 Inserted saline lock: 20 gauge in right antecubital area, using aseptic technique. as6 Blood collected. 07:03 Attending Physician role handed off by Bry Mejia MD ms3 07:03 Jeison Walters DO is Attending Physician. ms3 07:57 Primary Nurse role handed off by Mickey Parikh RN ll1 07:58 Ursula Leblanc RN is Primary Nurse. ph 10:20 No provider procedures requiring assistance completed. IV discontinued, intact, bp bleeding controlled, No redness/swelling at site. Pressure dressing applied. Administered Medications: No medications were administered Medication: 02:53 VIS not applicable for this client. as6 Outcome: 10:02 Discharge ordered by . ms3 10:20 Discharged to home via wheelchair, with family. bp 10:20 Condition: stable 10:20 Discharge instructions given to patient, family, Instructed on discharge instructions, follow up and referral plans. Demonstrated understanding of instructions, follow-up care. 10:22 Patient left the ED. bp Signatures: Stacia Nguyen RN RN bb Ursula Leblanc RN RN ph Steve Pisano RN RN jb4 Ren Salas RN RN bp Jono Romero RN RN ll1 Jeison Walters DO DO ms3 Bry Mejia MD MD 7 Ade [place] 2 Kathe Holt tw5 Mickey Parikh RN RN as6 Corrections: (The following items were deleted from the chart) 02:33 02:22 General: poison controlled called . tw5 tw5
--- NOTE | 2021-12-31 10:03 | EDPHYS ---
Physician Documentation [facility] Name: Ana Munson Age: 81 yrs Sex: Female : 1940 Arrival Date: 12/31/2021 Time: 02:05 Bed 6 Private MD: ED Physician Jeison Walters HPI: 12/31 02:55 This 81 yrs old Female presents to ER via Ambulatory with complaints of Accidental mh7 Overdose. 02:55 The patient presents to the emergency department after a known overdose, that was mh7 accidental. Context: Method: the patient has a confirmed or suspected ingestion, Lexapro, Time: last night, Extent: moderate ingestion, the patient had a total ingestion of approximately 200 mg(s), the OD/poisoning occurred at at home, and was witnessed no one, Psychiatric history: the patient has a known psychiatric disorder, depression, Previous OD/poisoning history: none. Associated signs and symptoms: Pertinent negatives: anxiety, apnea, auditory hallucinations, burning of skin, decreased level of consciousness, depression, diaphoresis, diarrhea, dizziness, incontinence, loss of consciousness, nausea, palpitations, shortness of breath, tearfulness, visual hallucinations, vomiting. Severity of symptoms: At their worst the symptoms were moderate last night, in the emergency department the symptoms have improved moderately. States that she accidentally took 9-10 of her Lexapro which were in another pill bottle than she usual. She thought she was taking a combination of her vitamins. She called poison control who told her to come to the ER. She denies any suicidal or homicidal ideation. She denies any auditory or visual hallucinations.. Historical: - Allergies: 02:25 No Known Allergies; jb4 - Home Meds: 02:25 Lexapro Oral [Active]; jb4 - PMHx: 02:25 DM; HTN; Anxiety; depression; jb4 - PSHx: 02:25 Right cheondoism biopsy; hysterectomy; jb4 - Immunization history:: Adult Immunizations not up to date. - Social history:: Smoking status: Patient denies any tobacco usage or history of. ROS: 02:55 Constitutional: Negative for fever, chills, and weight loss, Eyes: Negative for injury, mh7 pain, redness, and discharge, ENT: Negative for injury, pain, and discharge, Neck: Negative for injury, pain, and swelling, Cardiovascular: Negative for chest pain, palpitations, and edema, Respiratory: Negative for shortness of breath, cough, wheezing, and pleuritic chest pain, Abdomen/GI: Negative for abdominal pain, nausea, vomiting, diarrhea, and constipation, Back: Negative for injury and pain, : Negative for injury, bleeding, discharge, and swelling, MS/Extremity: Negative for injury and deformity, Skin: Negative for injury, rash, and discoloration, Neuro: Negative for headache, weakness, numbness, tingling, and seizure, Psych: Negative for depression, anxiety, suicide ideation, homicidal ideation, and hallucinations, Allergy/Immunology: Negative for hives, rash, and allergies, Endocrine: Negative for neck swelling, polydipsia, polyuria, polyphagia, and marked weight changes, Hematologic/Lymphatic: Negative for swollen nodes, abnormal bleeding, and unusual bruising. Exam: 02:55 Constitutional: This is a well developed, well nourished patient who is awake, alert, mh7 and in no acute distress. Head/Face: Normocephalic, atraumatic. Eyes: Pupils equal round and reactive to light, extra-ocular motions intact. Lids and lashes normal. Conjunctiva and sclera are non-icteric and not injected. Cornea within normal limits. Periorbital areas with no swelling, redness, or edema. Neck: Trachea midline, no thyromegaly or masses palpated, and no cervical lymphadenopathy. Supple, full range of motion without nuchal rigidity, or vertebral point tenderness. No Meningismus. Chest/axilla: Normal chest wall appearance and motion. Nontender with no deformity. No lesions are appreciated. Cardiovascular: Regular rate and rhythm with a normal S1 and S2. No gallops, murmurs, or rubs. Normal PMI, no JVD. No pulse deficits. Respiratory: Lungs have equal breath sounds bilaterally, clear to auscultation and percussion. No rales, rhonchi or wheezes noted. No increased work of breathing, no retractions or nasal flaring. Abdomen/GI: Soft, non-tender, with normal bowel sounds. No distension or tympany. No guarding or rebound. No evidence of tenderness throughout. Back: No spinal tenderness. No costovertebral tenderness. Full range of motion. Skin: Warm, dry with normal turgor. Normal color with no rashes, no lesions, and no evidence of cellulitis. MS/ Extremity: Pulses equal, no cyanosis. Neurovascular intact. Full, normal range of motion. Neuro: Awake and alert, GCS 15, oriented to person, place, time, and situation. Cranial nerves II-XII grossly intact. Motor strength 5/5 in all extremities. Sensory grossly intact. Cerebellar exam normal. Normal gait. Psych: Awake, alert, with orientation to person, place and time. Behavior, mood, and affect are within normal limits. 07:34 ECG was reviewed by the Attending Physician. ms3 Vital Signs: 02:23 BP 161 / 52; Pulse 89; Resp 16; Temp 97.7; Pulse Ox 95% on R/A; Weight 104.33 kg (R); jb4 Height 5 ft. 2 in. (157.48 cm) (R); Pain 0/10; 03:44 BP 141 / 52; Pulse 73; Resp 12 S; Pulse Ox 94% on R/A; as6 05:00 BP 126 / 59; Pulse 78; Resp 12 S; Pulse Ox 93% on R/A; as6 06:13 BP 152 / 54; Pulse 76; Resp 14 S; Pulse Ox 94% on R/A; as6 07:00 BP 131 / 61; Pulse 75; Resp 15; Pulse Ox 94% ; bp 10:00 BP 127 / 57; Pulse 78; Resp 14; Pulse Ox 94% ; bp 02:23 Body Mass Index 42.07 (104.33 kg, 157.48 cm) jb4 MDM: 07:03 Transition of care: Care assumed from Bry Mejia MD. ms3 07:43 Patient medically screened. ms3 10:08 Differential diagnosis: over medication. Data reviewed: vital signs, nurses notes, lab ms3 test result(s), EKG, and as a result, I will discharge patient. Counseling: I had a detailed discussion with the patient and/or guardian regarding: the historical points, exam findings, and any diagnostic results supporting the discharge/admit diagnosis, lab results, the need for outpatient follow up, to return to the emergency department if symptoms worsen or persist or if there are any questions or concerns that arise at home. ED course: Discussed labs, physical exam findings with patient. Patient to follow-up with primary care physician in 2 to 3 days. Patient understands and agrees with plan. All questions were answered. Return precautions discussed include worsening symptoms, or any other concerns. On reevaluation patient is alert and oriented x4, in no apparent distress, nontoxic-appearing, speaking full sentences, ambulatory in emergency department.. 12/31 02:44 Order name: Acetaminophen; Complete Time: 05:26 12/31 02:44 Order name: Basic Metabolic Panel; Complete Time: 05:26 12/31 02:44 Order name: CBC with Diff; Complete Time: 05: 12/31 02:44 Order name: ETOH Level; Complete Time: 05: 12/31 02:44 Order name: Hepatic Function; Complete Time: 05: 12/31 02:44 Order name: PT-INR; Complete Time: 05: 12/31 02:44 Order name: Ptt, Activated; Complete Time: 05:26 [facility] 12/31 02:44 Order name: Salicylate; Complete Time: 05:26 [facility] 12/31 02:44 Order name: Urine Drug Screen; Complete Time: 10:02 12/31 02:44 Order name: EKG; Complete Time: 02:45 [facility] 12/31 02:44 Order name: EKG - Nurse/Tech; Complete Time: 02:52 [facility] 12/31 07:30 Order name: EKG; Complete Time: 07:30 ms3 12/31 08:05 Order name: Urine Dipstick-Ancillary; Complete Time: 10:02 EDMS 08 08:12 Order name: Diet Regular; Complete Time: 08:13 ph 12/31 02:44 Order name: IV Saline Lock; Complete Time: 02:52 [facility] 12/31 02:44 Order name: Labs collected and sent; Complete Time: 02:52 [facility] 12/31 02:44 Order name: Suicide Screening ([place]); Complete Time: 02:52 [facility] 12/31 02:44 Order name: Urine Dipstick-Ancillary (obtain specimen); Complete Time: 07:59 mh7 EC:34 Rate is 76 beats/min. Rhythm is regular. QRS [place] is Normal. HI interval is normal. ms3 Clinical impression: NSR w/ Non-specific ST/T Changes. Interpreted by me. Administered Medications: No medications were administered Disposition Summary: 12/31/21 10:02 Discharge Ordered Location: Home ms3 Condition: Stable ms3 Diagnosis - Accidental Lexipro overdose ms3 Followup: ms3 - With: Private Physician - When: 2 - 3 days - Reason: Recheck today's complaints Discharge Instructions: - Discharge Summary Sheet ms3 - Accidental Drug Poisoning, Adult ms3 Forms: - Medication Reconciliation Form ms3 - Thank You Letter ms3 - Antibiotic Education ms3 - Prescription Opioid Use ms3 Signatures: Dispatcher [employer] Steve Abdi RN RN jb4 Jeison Walters DO DO ms3 Bry Mejia MD MD mh7
[2021-12-31 10:26] VITALS: TEMP 97.7
[2021-12-31 10:34] VITALS: O2SAT 94
[2021-12-31 10:37] VITALS: BP 127/57
--- NOTE | 2022-01-01 06:30 | EKG ---
Test Date: 2021-12-31 Test Time: 07:34:41 Senior Sharepoint Developer: THNAH MEASUREMENT RESULTS: Intervals: Rate: 76 CT: 178 QRSD: 78 QT: 442 QTc: 497 [place]: P: 45 CT: 178 QRS: 20 T: 50 INTERPRETIVE STATEMENTS: Normal sinus rhythm Nonspecific T wave abnormality Prolonged QT Abnormal ECG Compared to ECG 12/31/2021 02:40:06 T-wave abnormality now present Prolonged QT interval now present Electronically Signed On 01-01-22 06:27:47 CDT by Herbert Padilla
== END 2021-12-31 10:22 | disposition home or self-care (01) ==
LOC: ER 02:03
DX: T43.221A Poisoning by selective serotonin reuptake inhibitors, accidental (unintentional), initial encounter (principal); F32.A Depression, unspecified; I10 Essential (primary) hypertension; E11.9 Type 2 diabetes mellitus without complications
CPT/HCPCS: 36415; 80048; 80076; 80307; 80320; 80329; 81003; 85025; 85610; 85730; 93005; 99283

== ENCOUNTER 2024-07-08 10:24 | Inpatient (IN) | payer MEDICARE ==
--- NOTE | 2024-07-08 10:58 | RAD REPORT ---
EXAM: CT brain without contrast HISTORY: Confused;Trauma COMPARISON: None TECHNIQUE: Multiple contiguous axial images were obtained and a CT of the brain without contrast. Sag ittal and coronal reformats were performed. One or more of the following dose reduction techniques were used: Automated exposure control, adjust ment of the mA and/or kV according to patient size, and/or iterative reconstruction. FINDINGS: No evidence of hydrocephalus, intracranial hemorrhage, or extra-axial fluid collection. Mild brain atrophy with mild periventricular and deep white matter chronic microvascular ischemic ch anges present. No evidence of midline shift or areas of brain edema. The calvarium is intact. The visualized paranasal sinuses and mastoid air cells are essentially clear . IMPRESSION: No evidence of acute intracranial abnormality. EXAM: CT of the cervical spine without contrast HISTORY: Neck pain, injury Confused;Trauma TECHNIQUE: Multiple contiguous axial images were obtained in a CT of the cervical spine without contr ast. Sagittal and coronal reformats were performed. FINDINGS: The vertebral bodies demonstrate normal height and alignment. No evidence of acute fracture or subluxation.. 2 mm degenerative anterolisthesis present C4 on 5. Moderate C5-6 and C6-7 spondylosis. No prevertebral soft tissue swelling is seen. The posterior facets are well aligned. Normal alignment of the skull base with the cervical spine is seen. The lung apices are unremarkable. IMPRESSION: No evidence of acute osseous abnormality of the cervical spine.
[2024-07-08 11:27] LABS: Absolute Basophils 0.1 K/uL (0-0.5); Absolute Eosinophils 0.2 K/uL (0-0.5); Absolute Lymphocytes (CBC) 1.4 K/uL (0.7-4.9); Absolute Monocytes 0.6 K/uL (0.1-1.3); Absolute Neutrophil 7.3 K/uL (1.8-8.0); Basophils % 0.6 % (0-1.3); Eosinophils % 1.9 % (0-4.4); Hematocrit 43.2 % (36.0-45.0); Lymphocytes % 14.8 % (15.3-44.8); MCH 29.6 pg (27.0-35.0); MCHC 32.5 g/dL (32.0-36.0); MCV 90.9 fL (80-100); MPV 9.4 fL (7.6-11.3); Monocytes % 6.1 % (3.3-12.3); Neutrophils % 76.6 % (41.7-73.7); Platelets 182 thou/uL (152-406); RBC Red Blood Cell Count 4.75 M/uL (3.86-4.86); Red Cell Distribution Width 13.4 % (12.1-15.2)
[2024-07-08 11:33] LABS: PT Prothrombin Time 12.2 SECONDS (9.4-12.5); PTT, Activated Partial Thromb 32.6 SECONDS (24.3-36.9); Protime INR 1.09
[2024-07-08 12:05] LABS: ALT/SGPT 15 U/L (13-56); AST/SGOT 13 U/L (15-37); Albumin 3.3 g/dL (3.4-5.0); Albumin/Globulin Ratio 0.9 (1.1-1.8); Alkaline Phosphatase 79 U/L (45-117); Anion Gap 9.3 mEq/L (5.0-15.0); BUN Blood Urea Nitrogen 22 mg/dL (7-18); Bicarbonate 25 mEq/L (21-32); Bilirubin Direct 0.2 mg/dL (0-0.2); Bilirubin Indirect, Calculated 0.4 mg/dL (0.2-0.8); Bilirubin Total 0.6 mg/dL (0.2-1.0); Globulin 3.6 g/dL (2.3-3.5); Glomerular Filtration Rate 63 ml/min (=/>90); Glucose Level 215 mg/dL (74-106); Potassium 3.3 mEq/L (3.5-5.1); Protein, Total 6.9 g/dL (6.4-8.2); Sodium Level 140 mEq/L (136-145)
[2024-07-08 13:08] LABS: Specific Gravity 1.009 (1.005-1.030); Sqamous Epithelial None Seen /HPF (None Seen); Urine Bacteria None Seen /HPF (<20); Urine Bilirubin NEGATIVE (Negative); Urine Blood Negative (Negative); Urine Clarity Clear (Clear); Urine Color Colorless (Yellow); Urine Culture Reflex Order NOT NEEDED; Urine Glucose NEGATIVE (Negative); Urine Ketones NEGATIVE (Negative); Urine Microscopic Reflex YN ORDER UMIC; Urine Mucus Slight /HPF (None Seen); Urine Nitrite NEGATIVE (Negative); Urine Protein NEGATIVE (Negative); Urine RBC None Seen /HPF (None Seen); Urine Urobilinogen Normal (Normal); Urine WBC None Seen /HPF (<5); Urine pH 6.5 (5.0-7.0)
[2024-07-08 13:17] LABS: Barbiturates NEGATIVE (NEGATIVE); Benzodiazepines NEGATIVE (NEGATIVE); Cocaine NEGATIVE (NEGATIVE); METHAMPHETAM NEGATIVE (NEGATIVE); Methadone NEGATIVE (NEGATIVE); Opiates NEGATIVE (NEGATIVE); Phencyclidine NEGATIVE (NEGATIVE); THC Cannibis NEGATIVE (NEGATIVE)
[2024-07-08 13:34] LABS: Blood Gas Oxyhemoglobin 91.5 % (94-97); Blood Gas THB 14.8 g/dl (12-18); Blood O2 Saturation 94.1 % (92-98.5)
--- NOTE | 2024-07-08 15:48 | RAD REPORT ---
EXAMINATION: CTA HEAD CLINICAL INDICATION: SLURRED SPEECH TECHNIQUE: Axial CT images were obtained through the head after intravenous contrast utilizing angio raph protocol with 3D post-processing (maximum intensity projection images, volume rendered images and/or shaded surface rendered images). One or more of the following dose reduction technique s were used: Automated exposure control, adjustment of the mA and/or kV according to patient size, and/or iterative reconstruction. Unless otherwise specified, incidental findings do not require dedic ated imaging follow-up. COMPARISON: No prior exam. FINDINGS: ICA: The petrous, cavernous, and supraclinoid segments of the bilateral internal carotid arteries are normal. The ophthalmic artery origins are visualized and normal. The posterior communicating arteries are patent. ARELI: Anterior cerebral arteries are normal bilaterally. The anterior communicating artery is patent. MCA: Middle cerebral arteries are normal bilaterally. EYE CLINIC MANAGER: Posterior cerebral arteries are normal bilaterally. Vertebrobasilar: The vertebral arteries are patent. The basilar artery is normal in appearance. 3D images confirm these findings. IMPRESSION: No significant flow abnormality is identified.
--- NOTE | 2024-07-08 15:51 | RAD REPORT ---
EXAMINATION: CTA NECK CLINICAL INDICATION: slurred speech TECHNIQUE: Axial CT images were obtained from the aortic arch to the skull base after intravenous con trast utilizing angiographic protocol with 3D post-processing (maximum intensity projection images, volume rendered images and/or shaded surface rendered images). One or more of the following dose redu ction techniques were used: Automated exposure control, adjustment of the mA and/or kV according to patient size, and/or iterative reconstruction. Unless otherwise specified, incidental findings do not require dedicated imaging follow-up. COMPARISON: No prior exam. FINDINGS: AORTA: The imaged aortic arch is normal. CCA: The common carotid arteries are patent and normal in caliber. ICA/ECA: Mild hard plaque is seen in both carotid bulbs, slightly greater on the left. This does not appear to result in a significant stenosis. Both carotid arteries take a retropharyngeal course. VERTEBRAL: The cervical vertebral arteries are patent. The vertebral arteries are codominant. SOFT TISSUE: No significant neck soft tissue abnormalities. The visualized lung apices are clear. 3D images confirm these findings. IMPRESSION: No significant flow abnormality of the neck vessels is identified. NASCET criteria used. Mild 0-49% stenosis Moderate 50-69% stenosis Severe 70-99% stenosis
--- NOTE | 2024-07-08 15:54 | ER ---
Nurse's Notes [facility] Name: Ana Munson Age: 84 yrs Sex: Female : 1940 Arrival Date: 07/08/2024 Time: 10:24 Bed 7 Private MD: Diagnosis: Altered mental status, unspecified;Elevated troponin Presentation: 07/08 10:27 Chief complaint: EMS states: FOUND DOWN BY NEIGHBORS, UNWITNESSED FALL. Coronavirus bp screen: At this time, the client does not indicate any symptoms associated with coronavirus-19. Ebola Screen: No symptoms or risks identified at this time. Initial Sepsis Screen: Does the patient meet any 2 criteria? No. Patient's initial sepsis screen is negative. Does the patient have a suspected source of infection? No. Patient's initial sepsis screen is negative. Risk Assessment: Do you want to hurt yourself or someone else? Patient reports no desire to harm self or others. Onset of symptoms is unknown. Care prior to arrival: IV initiated. 20 GA, in the left forearm, Glucose check: 386. 10:27 Method Of Arrival: EMS: [facility] bp 10:27 Acuity: JOHNNY 3 bp Triage Assessment: 10:29 General: Appears in no apparent distress. Behavior is drowsy. Pain: Denies pain. EENT: bp No deficits noted. Neuro: Level of Consciousness is awake, obeys commands, confused, Oriented to person. Cardiovascular: Rhythm is sinus rhythm. Respiratory: No deficits noted. GI: No signs and/or symptoms were reported involving the gastrointestinal system. : No signs and/or symptoms were reported regarding the genitourinary system. Derm: No deficits noted. Musculoskeletal: No deficits noted. Injury Description: NONE NOTED. Historical: - PMHx: 10:29 Anxiety; Depression; DM; HTN; bp - PSHx: 10:29 hysterectomy; Right gnosticist biopsy; bp - Immunization history:: Adult Immunizations up to date. - Infectious Disease History:: Denies. - Social history:: Smoking status: unknown. Screenin:00 [facility] ED Fall Risk Assessment (Adult) History of falling in the last 3 months, bp including since admission Yes- single mechanical fall (1 pt) Confusion or Disorientation Yes (5 pts) Intoxicated or Sedated No (0 pts) Impaired Gait No (0 pts) Mobility Assist Device Used No (0 pt) Altered Elimination No (0 pt) Score/Fall Risk Level 3 or more points = High Risk Oriented to surroundings. Abuse screen: Denies threats or abuse. Denies injuries from another. Nutritional screening: No deficits noted. Tuberculosis screening: No symptoms or risk factors identified. Assessment: 10:30 General: Appears in no apparent distress. unkempt, Behavior is agitated, anxious. bp 11:30 Reassessment: No changes from previously documented assessment. Patient and/or family bp updated on plan of care and expected duration. Pain level reassessed. 11:49 Reassessment: CC CLEARED PER CT. Neuro: Moves all extremities. Full function. bp Musculoskeletal: Circulation, motion, and sensation intact. Range of motion: intact in all extremities. 13:30 Reassessment: Patient appears in no apparent distress at this time. Patient and/or bp family updated on plan of care and expected duration. Pain level reassessed. 15:30 Reassessment: No changes from previously documented assessment. Patient and/or family bp updated on plan of care and expected duration. Pain level reassessed. 16:41 Reassessment: ADMIT IN PROCESS. bp 17:30 Reassessment: REPORT FAXED FOR RM 211. bp Vital Signs: 10:30 BP 157 / 79; Pulse 81; Resp 15; Temp 98; Pulse Ox 94% ; bp 11:30 BP 185 / 83; Pulse 84; Resp 15; Pulse Ox 95% ; bp 12:30 BP 182 / 68; Pulse 86; Resp 16; Pulse Ox 97% ; bp 13:30 BP 193 / 80; Pulse 80; Resp 15; Pulse Ox 92% ; bp 15:30 BP 175 / 73; Pulse 82; Resp 16; Pulse Ox 95% ; bp 16:40 BP 192 / 86; Pulse 84; Resp 15; Pulse Ox 92% ; bp 17:29 BP 185 / 85; Pulse 55; Resp 15; Pulse Ox 92% ; bp ED Course: 10:25 Patient arrived in ED. ko1 10:26 Zuri Larsen PA-C is PHCP. sb4 10:26 Joseph Gary MD is Attending Physician. sb4 10:26 Ren Salas, EEMLIA is Primary Nurse. bp 10:28 Triage completed. bp 10:30 Arm band placed on. bp 10:49 CT Head C Spine In Process Unspecified. EDMS 11:00 Patient has correct armband on for positive identification. bp 11:16 Initial lab(s) drawn, by me, sent to lab. EKG done, by ED staff, reviewed by Zuri Larsen PA-C. Inserted saline lock: 22 gauge in right forearm, using aseptic technique. Blood collected. Flushed with 10 mL NS. 13:01 Urinalysis w/ reflexes Sent. em1 13:01 Urine Drug Screen Sent. em1 14:03 Notified Nurse Practitioner and/or Physician Overlock Waistline Joiner of a critical lab result(s), ll1 troponin 105.5. 15:36 CT Head Angio In Process Unspecified. EDMS 15:38 CT Neck Angio In Process Unspecified. EDMS 15:53 Oscar Adams is Hospitalizing Provider. sb4 17:35 Provided Education on: admit. ko1 17:35 No provider procedures requiring assistance completed. Patient admitted, IV remains in ko1 place. Administered Medications: No medications were administered Medication: 17:35 VIS not applicable for this client. ko1 Outcome: 15:53 Decision to Hospitalize by Provider. sb4 17:35 Admitted to Med/surg accompanied by tech, via stretcher, room 211, with chart, ko1 17:35 Condition: stable 17:35 Instructed on the need for admit, 18:27 Patient left the ED. bp Signatures: Dispatcher [employer] Aj Dunn em1 Ren Salas, RN RN Jono Soliman, RN RN ll1 Vicky Patel RN RN Zuri Duron PA-C PA-C sb4
--- NOTE | 2024-07-08 15:54 | EDPHYS ---
Physician Documentation [facility] Name: Ana Munson Age: 84 yrs Sex: Female : 1940 Arrival Date: 07/08/2024 Time: 10:24 Bed 7 Private MD: ED Physician Joseph Gary HPI: 07/08 10:29 This 84 yrs old Female presents to ER via EMS with complaints of Fall Injury, AMS. sb4 10:30 neighbors called EMS because they saw patient laying in her doorway. patient cannot sb4 provide any history. oriented to self only, does follow commands. Historical: - PMHx: 10:29 Anxiety; Depression; DM; HTN; bp - PSHx: 10:29 hysterectomy; Right synagogue biopsy; bp - Immunization history:: Adult Immunizations up to date. - Infectious Disease History:: Denies. - Social history:: Smoking status: unknown. ROS: 10:30 Unable to obtain ROS due to altered mental status, sb4 Exam: 10:30 Head/Face: Normocephalic, atraumatic. Eyes: Extra-ocular motions intact. Periorbital sb4 areas with no swelling, redness, or edema. ENT: Mucous membranes moist. Cardiovascular: Regular rate and rhythm with a normal S1 and S2. Respiratory: No increased work of breathing, no retractions or nasal flaring. Abdomen/GI: Soft, non-tender, no distension. 10:30 Constitutional: The patient appears alert, awake, obese, unkempt, 10:30 Neuro: Orientation: to person, Not oriented to place, time, situation, Mentation: responsive to voice able to follow commands, slow to respond, confused, Motor: moves all fours, Sensation: is normal, seizure activity, is not displayed by the patient, 10:32 Neck: C-spine: C-collar placed MINE TECHNICIAN, sb4 Vital Signs: 10:30 BP 157 / 79; Pulse 81; Resp 15; Temp 98; Pulse Ox 94% ; bp 11:30 BP 185 / 83; Pulse 84; Resp 15; Pulse Ox 95% ; bp 12:30 BP 182 / 68; Pulse 86; Resp 16; Pulse Ox 97% ; bp 13:30 BP 193 / 80; Pulse 80; Resp 15; Pulse Ox 92% ; bp 15:30 BP 175 / 73; Pulse 82; Resp 16; Pulse Ox 95% ; bp 16:40 BP 192 / 86; Pulse 84; Resp 15; Pulse Ox 92% ; bp 17:29 BP 185 / 85; Pulse 55; Resp 15; Pulse Ox 92% ; bp MDM: 10:26 Medical Screening Exam initiated sb4 15:51 Data reviewed: vital signs, nurses notes, EMS record, lab test result(s), EKG, sb4 radiologic studies, and as a result, I will admit patient. 07/08 10:27 Order name: Acetaminophen; Complete Time: 12:06 sb4 07/08 10:27 Order name: Basic Metabolic Panel; Complete Time: 12:06 sb4 07/08 10:27 Order name: CBC with Diff; Complete Time: 11:30 sb4 07/08 10:27 Order name: ETOH Level; Complete Time: 12:06 sb4 07/08 10:27 Order name: Hepatic Function; Complete Time: 12:06 sb4 07/08 10:27 Order name: PT-INR; Complete Time: 11:33 sb4 07/08 10:27 Order name: Ptt, Activated; Complete Time: 11:33 sb4 07/08 10:27 Order name: Salicylate; Complete Time: 12:06 sb4 07/08 10:27 Order name: Urinalysis w/ reflexes; Complete Time: 13:09 sb4 07/08 10:27 Order name: Urine Drug Screen; Complete Time: 13:19 sb4 07/08 13:13 Order name: Troponin High Sensitivity; Complete Time: 14:03 sb4 07/08 13:13 Order name: AMMONIA; Complete Time: 14:00 sb4 07/08 13:13 Order name: ABG; Complete Time: 13:37 sb4 07/08 14:03 Order name: CK; Complete Time: 14:37 sb4 07/08 16:54 Order name: Thyroid Stimulating Hormone EDMS 07/08 16:54 Order name: Urinalysis w/ reflexes EDMS 07/08 16:54 Order name: Troponin High Sensitivity EDMS 07/08 16:54 Order name: Troponin High Sensitivity EDMS 07/08 16:54 Order name: Troponin High Sensitivity EDMS 07/08 16:54 Order name: Troponin High Sensitivity EDMS 07/08 16:54 Order name: CBC with Automated Diff EDMS 07/08 16:54 Order name: Comprehensive Metabolic Panel EDMS 07/08 16:54 Order name: Magnesium EDSD 07/08 16:54 Order name: NT PRO-BNP EDSD 07/08 16:54 Order name: Phosphorus EDSD 07/08 16:55 Order name: Blood Culture EDSD 07/08 16:57 Order name: Potassium EDSD 07/08 10:27 Order name: CT Head C Spine; Complete Time: 10:58 sb4 07/08 13:48 Order name: CT Head Angio; Complete Time: 15:50 sb4 07/08 13:48 Order name: CT Neck Angio; Complete Time: 15:52 sb4 07/08 16:55 Order name: Chest Pa And Lat (2 Views); Complete Time: 18:12 EDMS 07/08 16:55 Order name: Echo with Doppler EDSD 07/08 16:59 Order name: Brain Wo Cont EDSD 07/08 16:54 Order name: CONS Physician Consult EDSD 07/08 16:54 Order name: Physical Therapy Consult EDSD 07/08 16:57 Order name: Speech Therapy Consult EDSD 07/08 16:58 Order name: Occupational Therapy Consult EDSD 07/08 10:27 Order name: EKG - Nurse/Tech; Complete Time: 11:16 sb4 07/08 10:27 Order name: IV Saline Lock; Complete Time: 11:16 sb4 07/08 10:27 Order name: Labs collected and sent; Complete Time: 11:16 sb4 EC:15 Rate is 84 beats/min. Rhythm is regular, Sinus Rhythm with 1st degree heart block. MT sb4 interval is prolonged at 236 msec. QRS interval is normal at 94 msec. QT interval is normal at 410 msec. No Q waves. T waves are Normal. No ST changes noted. Clinical impression: 1st degree heart block. Interpreted by me. Reviewed by me. Administered Medications: No medications were administered Disposition: 15:53 Chart complete. sb4 Disposition Summary: 07/08/24 15:53 Hospitalization Ordered Notes: Hospitalization Status: Inpatient Admission sb4 Provider: Oscar Adams sb4 Location: Telemetry/MedSurg (Inpatient) sb4 Condition: Fair sb4 Problem: new sb4 Symptoms: are unchanged sb4 Bed/Room Type: Standard sb4 Room Assignment: 211(07/08/24 17:23) eb Diagnosis - Altered mental status, unspecified sb4 - Elevated troponin sb4 Forms: - Medication Reconciliation Form sb4 - SBAR form sb4 - Leadership Thank You Letter sb4 Signatures: Dispatcher [employer] EDRen Lucas, RN RN Tamica Segundo Sophia, PA-C PA-C sb4 Corrections: (The following items were deleted from the chart) 10:27 10:27 Head C Spine MPR Wo Con+CT.RAD.BRZ ordered. EDMS EDMS 10:28 10:28 ACETAMINOPHEN+C.LAB.BRZ ordered. EDMS EDMS 10:28 10:28 BASIC METABOLIC PANEL+C.LAB.BRZ ordered. EDMS EDMS 10:28 10:28 CBC+H.LAB.BRZ ordered. EDMS EDMS 10:28 10:28 ETHANOL+C.LAB.BRZ ordered. EDMS EDMS 10:28 10:28 HEPATIC FUNCTION+C.LAB.BRZ ordered. EDMS EDMS 10:28 10:28 PROTIME (+INR)+COAG.LAB.BRZ ordered. EDMS EDMS 10:28 10:28 PTT, ACTIVATED+COAG.LAB.BRZ ordered. EDMS EDMS 10:28 10:28 SALICYLATE+C.LAB.BRZ ordered. EDMS EDMS 10:28 10:28 Urinalysis+U.LAB.BRZ ordered. EDMS EDMS 10:28 10:28 URINE DRUG SCREEN+UC.LAB.BRZ ordered. EDMS EDMS 15:51 10:30 Neuro: Orientation: to person, Not oriented to place, time, situation, Mentation: sb4 responsive to voice able to follow commands, slow to respond, confused, Motor: moves all fours, Sensation: is normal, seizure activity, is not displayed by the patient, sb4 17:23 15:53 sb4 eb
[2024-07-08] MEDS ORDERED: ALBUTEROL 2.5 MG/3 ML NEB SOL NEB PRN (16:46)
[2024-07-08] MEDS ORDERED: GLUCAGON 1 MG/VIAL IM PRN (16:56)
[2024-07-08] MEDS ORDERED: D10W 125 ML IV PRN (16:56)
--- NOTE | 2024-07-08 17:03 | P.HP ---
Certification for Inpatient With expected LOS: <2 Midnights <Katy Casas - Last Filed: 07/08/24 16:58> Patient History Date of Service: 07/08/24 Reason for admission: Metabolic cephalopathy, polypharmacy, NSTEMI History of Present Illness: 84-year-old woman with a past medical history significant for history of CVA (2021) unknown residual deficits, dementia, anxiety/depression, HTN, DMT2 insulin-dependent, and HDL presented to the emergency room with altered mental status. Per EMS report, the patient possibly had a fall and was found in her doorway earlier today. The patient is alert, but oriented to first name only. No family is present at bedside. The patient is a poor historian, and is having trouble word finding. She is afebrile, and is not voicing any complaints at this time. Home medications list reviewed: Yes (Unable to confirm with the patient) - Past Medical/Surgical History Diabetic: Yes -: Anxiety/depression -: Dementia -: HTN -: DMT2 on insulin -: HDL -: Hysterectomy -: Right temporal biopsy - Family History Mother -: Other (see notes) (Patient unable to word find) - Social History Smoking Status: Unknown if ever smoked <Katy Casas - Last Filed: 07/08/24 16:58> Date of Service: 07/09/24 <marbin dunaway - Last Filed: 07/09/24 15:40> Allergies azithromycin Allergy (Verified 07/08/24 21:11) unknown codeine Allergy (Verified 07/08/24 21:11) unknown erythromycin base Allergy (Verified 07/08/24 21:11) Nausea/Vomiting Sulfa (Sulfonamide Antibiotics) Allergy (Verified 07/08/24 21:11) unknown venlafaxine Allergy (Verified 07/08/24 21:11) unknown Home Medications: Amlodipine [Norvasc*] 1 tab PO DAILY 10/20/21 Escitalopram [Lexapro*] 1 tab PO DAILY 10/20/21 Insulin Degludec/Liraglutide [Xultophy 100 Unit-3.6MG/ml Pen] 40 units IN DAILY 10/20/21 Metoprolol Succinate [Toprol Xl*] 1 tab PO DAILY 10/20/21 Rosuvastatin [Crestor*] 1 tab PO DAILY 10/20/21 Temazepam [Restoril*] 1 tab PO PRN 10/20/21 predniSONE [Prednisone*] 1 tab PO DAILY 10/20/21 Review of Systems Neurological: Change in Speech, Confusion, Other (Trouble word finding, dysarthria) <Katy Casas Q - Last Filed: 07/08/24 16:58> Physical Examination - Vital Signs Temperature: 98.0 F Blood Pressure: 175/73 Pulse: 84 Respirations: 18 Pulse Ox (%): 96 (On room air) - Physical Exam General: Alert, Oriented x1, Demented, Confused HEENT: Atraumatic, Normocephalic, Other (No signs of head trauma) Neck: JVD not distended Respiratory: Clear to auscultation bilaterally Cardiovascular: No edema, Regular rate/rhythm, No gallops, No rubs, No murmurs Gastrointestinal: Normal bowel sounds, Non-distended, No tenderness Musculoskeletal: No swelling, No erythema, No tenderness, No warmth Neurological: Normal strength at 5/5 x4 extr, Sensation intact, Other (Able to follow simple commands, responds to yes/no questions) Urinary: Other (Adult diaper) - Studies Laboratory Data (last 24 hrs) 07/08/24 07/08/24 07/08/24 11:15 11:15 11:15 WBC 9.60 Hgb 14.0 Hct 43.2 Plt Count 182 PT 12.2 INR 1.09 APTT 32.6 Sodium 140 Potassium 3.3 L BUN 22 H Creatinine 0.89 Glucose 215 H Total Bilirubin 0.6 AST 13 L ALT 15 Alkaline Phosphatase 79 <Katy Casas Q - Last Filed: 07/08/24 16:58> Assessment and Plan - Problems (Diagnosis) (1) Metabolic encephalopathy Current Visit: Yes Status: Acute (2) Polypharmacy Current Visit: Yes Status: Acute (3) NSTEMI (non-ST elevated myocardial infarction) Current Visit: Yes Status: Acute (4) Hypertension Current Visit: Yes Status: Acute (5) Diabetes Current Visit: Yes Status: Acute (6) Dyslipidemia (high LDL; low HDL) Current Visit: Yes Status: Acute (7) Depression Current Visit: Yes Status: Acute - Plan Metabolic encephalopathy: Admit to floor IVF ordered N.p.o. diet PT/OT/speech consulted Bedside swallow screen ordered Statin at bedtime ordered Brain MRI without contrast ordered Blood cultures ordered CXR pending Head CTA revealed no acute abnormality CT Brain revealed no acute abnormality Neck CTA revealed no acute abnormality No UTI CODE STATUS unknown at this time Polypharmacy: Holding home medications except home BP meds Continue with gentle hydration Potassium 3.3, repleted Heparin ordered NSTEMI: Elevated troponin 105, will repeat to trend Cardiology consulted Echocardiogram ordered Telemetry ordered Diabetes: On insulin sliding scale Hypertension: Continue with amlodipine, and metoprolol home doses HDL: Increased Crestor 10 mg home dose to 40 mg daily at bedtime - Advance Directives Does patient have a Living Will: No Does patient have a Durable POA for Healthcare: No <Katy Casas - Last Filed: 07/08/24 16:58> - Plan Plan of care discussed with Ms. Casas. Patient with AMS and dysarthria. History of CVA. Differential diagnosis: Acute CVA Polypharmacy Patient admitted to the medical Telemetry Start aspirin, Lipitor Obtain MRI of the brain Echocardiogram Speech therapy consult. Neurochecks. <marbin dunaway - Last Filed: 07/09/24 15:40>
--- NOTE | 2024-07-08 18:10 | RAD REPORT ---
EXAMINATION: TWO VIEW CHEST XR CLINICAL INDICATION: altered mental status TECHNIQUE: 2 views of the chest was performed. COMPARISON: 10/20/2021 FINDINGS: Moderate bilateral pulmonary opacities likely representing pulmonary edema or pneumonia. The heart is upper limit of normal in size. No displaced fractures evident.
[2024-07-08] MEDS: HEPARIN 5000 UNIT/ML 1 ML VIAL SQ SCH ×2 (18:20→20:10)
[2024-07-08] MEDS: NA CHLORIDE 0.9% 1,000 ML IV SCH ×2 (18:20→18:39)
[2024-07-08] MEDS: POTASSIUM 25 MEQ EFFERV TAB PO ONE (18:30)
[2024-07-08] MEDS: IPRATROPIUM BROM 0.5MG/2.5ML NEB SCH (19:00)
[2024-07-08] MEDS: INSULIN REGULAR (HUMAN) 100 UNIT/ML SQ SCH (20:06)
[2024-07-08] MEDS: ACETAMINOPHEN 325 MG TABLET PO PRN (20:09)
[2024-07-08] MEDS: ROSUVASTATIN 10 MG TAB PO SCH (20:10)
[2024-07-08 20:52] VITALS: BMI 38.6
[2024-07-09] MEDS: HYDRALAZINE HCL 20 MG/ML VIAL IV PRN (00:05)
[2024-07-09 02:01] LABS: Potassium 3.4 mEq/L (3.5-5.1)
[2024-07-09 02:02] LABS: Troponin High Sensitivity 103.7 pg/mL (<58.9)
[2024-07-09 05:06] LABS: Absolute Basophils 0.1 K/uL (0-0.5); Absolute Eosinophils 0.1 K/uL (0-0.5); Absolute Lymphocytes (CBC) 2.2 K/uL (0.7-4.9); Absolute Monocytes 0.5 K/uL (0.1-1.3); Absolute Neutrophil 6.8 K/uL (1.8-8.0); Basophils % 0.7 % (0-1.3); Eosinophils % 0.9 % (0-4.4); Hematocrit 43.2 % (36.0-45.0); Hemoglobin 14.3 g/dL (12.0-15.0); Lymphocytes % 22.8 % (15.3-44.8); MCH 29.8 pg (27.0-35.0); MCV 90.2 fL (80-100); MPV 9.5 fL (7.6-11.3); Monocytes % 5.3 % (3.3-12.3); Neutrophils % 70.3 % (41.7-73.7); Nucleated Red Blood Cells % 0.1 % (0-0); Platelets 192 thou/uL (152-406); RBC Red Blood Cell Count 4.79 M/uL (3.86-4.86); Red Cell Distribution Width 13.3 % (12.1-15.2)
[2024-07-09 05:12] LABS: AST/SGOT 14 U/L (15-37); Albumin 3.2 g/dL (3.4-5.0); Albumin/Globulin Ratio 0.9 (1.1-1.8); Alkaline Phosphatase 77 U/L (45-117); Anion Gap 11.5 mEq/L (5.0-15.0); BUN Blood Urea Nitrogen 15 mg/dL (7-18); Bicarbonate 24 mEq/L (21-32); Bilirubin Total 0.8 mg/dL (0.2-1.0); Globulin 3.6 g/dL (2.3-3.5); Glomerular Filtration Rate 76 ml/min (=/>90); Glucose Level 190 mg/dL (74-106); Magnesium 1.6 mg/dL (1.6-2.4); NT PRO-BNP 1245 pg/mL (<450); Phosphorus 2.4 mg/dL (2.5-4.9); Potassium 3.5 mEq/L (3.5-5.1); Protein, Total 6.8 g/dL (6.4-8.2); Sodium Level 140 mEq/L (136-145)
[2024-07-09 05:37] LABS: ALT/SGPT < 14 U/L (13-56)
[2024-07-09 05:38] LABS: Troponin High Sensitivity 103.5 pg/mL (<58.9)
[2024-07-09] MEDS: METOPROLOL XL 50 MG TAB PO SCH (08:47)
[2024-07-09] MEDS: ENOXAPARIN 40 MG/0.4 ML SQ SCH (08:47)
[2024-07-09] MEDS: AMLODIPINE 10 MG TAB PO SCH (08:47)
[2024-07-09] MEDS: ASPIRIN EC 81 MG TAB PO SCH (08:47)
[2024-07-09] MEDS: CLOPIDOGREL 75 MG TABLET PO SCH (09:24)
--- NOTE | 2024-07-09 09:30 | P.PN ---
Date of Service: 07/09/24 Subjective: More alert Significant expressive aphasia Difficulty with communication No difficulty with swallowing, passed bedside swallow tolerating diet, taking pills ROS: 10 point ROS as noted above, otherwise negative Physical exam GEN: Alert, oriented x 1-2, NAD HEENT: Normal conjunctiva, sclera anicteric CV: Regular rate and rhythm, no edema Pulm: Nonlabored respirations on room air ABD: Soft, nontender, nondistended MSK: No joint tenderness Integumentary: No rashes Neuro: Significant expressive aphasia noted, normal affect, moving all extremities NIH SCORE-4 Vitals reviewed Problem List Suspected acute CVA-history of CVA expressive aphasia NSTEMI Hypokalemia Hypertension Diabetes mellitus type 2insulin-dependent Hyperlipidemia Dementia Anxiety/depression Plan Suspected acute CVA-history of CVA expressive aphasia NIH score 4 (severe aphasia, mild left facial droop, month and age-dysarthric) Continue aspirin, statin, Plavix CT head negative for acute findings History of stroke 2022 MRI brain ordered, echocardiogram ordered PT, OT, speech consulted Neurology consultation Every 6 hour neuroassessments NSTEMI Troponins trended flat Monitor on telemetry, continue aspirin Cardiology consultation, echocardiogram Hypokalemia Protocols in place, repleted Hypertension Continue home medications Will allow for permissive hypertension for the first 48 hours up to 220/110 Diabetes mellitus type 2insulin-dependent ACHS Accu-Chek, sliding scale insulin Hyperlipidemia Continue statin Dementia Anxiety/depression Continue home medications VTE: Lovenox Code: Full Dispo: 2-3 days Time Spent Managing Pts Care (In Minutes): 35 <Peter Allan - Last Filed: 07/09/24 09:31> Patient seen and examined. Plan of care discussed with Peter Allan. Patient with significant dysarthria and aphasia. Prior history of CVA. Symptoms highly suggestive of acute CVA. Aspirin, Plavix, high-dose statin Obtain MRI Echocardiogram Speech, OT and PT evaluations. Troponin elevated back trended flat-likely secondary to demand ischemia. <marbin dunaway - Last Filed: 07/09/24 15:23>
[2024-07-09] MEDS: ACETAMINOPHEN 500 MG TAB PO ONE (15:43)
[2024-07-09] MEDS: POTASSIUM CL SA 10 MEQ TAB PO ONE (20:50)
[2024-07-10 05:26] LABS: MCH 32.7 pg (27.0-35.0); MCHC 35.1 g/dL (32.0-36.0); MCV 93.3 fL (80-100); MPV 9.5 fL (7.6-11.3); Platelets 181 thou/uL (152-406); RBC Red Blood Cell Count 4.29 M/uL (3.86-4.86)
[2024-07-10 05:30] LABS: Anion Gap 10.4 mEq/L (5.0-15.0); Potassium 3.4 mEq/L (3.5-5.1)
[2024-07-10] MEDS: POTASSIUM CL SA 10 MEQ TAB PO ONE (06:15)
--- NOTE | 2024-07-10 08:16 | P.PN ---
Date of Service: 07/10/24 Subjective: More alert Significant expressive aphasia Difficulty with communication No difficulty with swallowing, passed bedside swallow tolerating diet, taking pills No acute events overnight ROS: 10 point ROS as noted above, otherwise negative Physical exam GEN: Alert, oriented x 1-2, NAD HEENT: Normal conjunctiva, sclera anicteric CV: Regular rate and rhythm, no edema Pulm: Nonlabored respirations on room air ABD: Soft, nontender, nondistended MSK: No joint tenderness Integumentary: No rashes Neuro: Significant expressive aphasia noted, normal affect, moving all extremities NIH SCORE-4 Vitals reviewed Problem List Suspected acute CVA-history of CVA expressive aphasia NSTEMI Hypokalemia Hypertension Diabetes mellitus type 2insulin-dependent Hyperlipidemia Dementia Anxiety/depression Plan Suspected acute CVA-history of CVA expressive aphasia NIH score 4 (severe aphasia, mild left facial droop, month and age-dysarthric) Continue aspirin, statin, Plavix CT head negative for acute findings History of stroke 2022 MRI brain ordered, echocardiogram ordered PT, OT, speech consulted Neurology consultation Every 6 hour neuroassessments NSTEMI Troponins trended flat Monitor on telemetry, continue aspirin Cardiology consultation, echocardiogram Hypokalemia Protocols in place, repleted Hypertension Continue home medications Will allow for permissive hypertension for the first 48 hours up to 220/110 Diabetes mellitus type 2insulin-dependent ACHS Accu-Chek, sliding scale insulin Hyperlipidemia Continue statin Dementia Anxiety/depression Continue home medications VTE: Lovenox Code: Full Dispo: 2-3 days Time Spent Managing Pts Care (In Minutes): 35
--- NOTE | 2024-07-10 11:23 | P.CNS ---
Date of Consult: 07/10/24 Chief Complaint: Metabolic cephalopathy, polypharmacy, NSTEMI History of Present Illness: Patient with PMH of HTN, HLD, Stroke, presented with AMS, having expressive aphasia, denies having any cardiac symptoms. Allergies azithromycin Allergy (Verified 07/08/24 21:11) unknown codeine Allergy (Verified 07/08/24 21:11) unknown erythromycin base Allergy (Verified 07/08/24 21:11) Nausea/Vomiting Sulfa (Sulfonamide Antibiotics) Allergy (Verified 07/08/24 21:11) unknown venlafaxine Allergy (Verified 07/08/24 21:11) unknown Home medications list reviewed: Yes Home Medications: Amlodipine [Norvasc*] 1 tab PO DAILY 10/20/21 Escitalopram [Lexapro*] 1 tab PO DAILY 10/20/21 Insulin Degludec/Liraglutide [Xultophy 100 Unit-3.6MG/ml Pen] 40 units IN DAILY 10/20/21 Metoprolol Succinate [Toprol Xl*] 1 tab PO DAILY 10/20/21 Rosuvastatin [Crestor*] 1 tab PO DAILY 10/20/21 Temazepam [Restoril*] 1 tab PO PRN 10/20/21 predniSONE [Prednisone*] 1 tab PO DAILY 10/20/21 - Past Medical/Surgical History Diabetic: Yes -: Anxiety/depression -: Dementia -: HTN -: DMT2 on insulin -: HDL -: Hysterectomy -: Right temporal biopsy - Family History Mother Medical History: Other (see notes) - Social History Smoking Status: Unknown if ever smoked Place of Residence: Home Review of Systems 10-point ROS is otherwise unremarkable Physical Examination Temp Pulse Resp BP Pulse Ox 97.7 F 56 12 175/74 H 94 07/10/24 08:00 07/10/24 08:00 07/10/24 08:00 07/10/24 08:00 07/10/24 08:00 General: Alert, In no apparent distress HEENT: Atraumatic, PERRLA, Mucous membr. moist/pink, EOMI, Sclerae nonicteric Neck: Supple, 2+ carotid pulse no bruit, No LAD, Without JVD or thyroid abnormality Respiratory: Clear to auscultation bilaterally, Normal air movement Cardiovascular: Regular rate/rhythm, Normal S1 S2 Gastrointestinal: Normal bowel sounds, No tenderness Musculoskeletal: No tenderness Integumentary: No rashes Neurological: Normal gait, Normal speech, Normal tone, Normal affect Lymphatics: No axilla or inguinal lymphadenopathy - Problems (1) Dyslipidemia (high LDL; low HDL) Current Visit: Yes Status: Acute Plan: continue Crestor 40 mg daily (2) Hypertension Current Visit: Yes Status: Acute Plan: Continue Toprol XL and Norvasc. (3) NSTEMI (non-ST elevated myocardial infarction) Current Visit: Yes Status: Acute Plan: troponin mild elevated and no delta, Echo is normal no further cardiac work up needed outpatient follow up for a stress test.
--- NOTE | 2024-07-10 12:13 | RAD REPORT ---
EXAMINATION: LUMBAR SPINE 3 VIEWS CLINICAL INDICATION: Female, 84 years old. back pain, fall TECHNIQUE: AP, lateral, focused lateral lumbosacral views of the lumbar spine were obtained. [id number]. COMPARISON: 07/05/2020 FINDINGS: For purposes of this dictation, it is assumed that there are 5 lumbar type vertebral bodies. ALIGNMENT: There is normal alignment of the lumbar spine. BONES: Vertebral bodies are normal in height. No aggressive osseous lesions. DISCS: Moderate to severe disc height loss at L3-4. There is severe endplate sclerosis at this level was is likely related to underlying degenerative changes. This has progressed since 07/05/2020. No significant endplate irregularity, however. SOFT TISSUE: Aortic atherosclerosis. IMPRESSION: No acute lumbar spine abnormality. Progression of degenerative changes at L3-4 which is presumably de generative as there is no significant endplate irregularity to suggest discitis/osteomyelitis
--- NOTE | 2024-07-10 14:59 | RAD REPORT ---
EXAMINATION: MRI BRAIN WITHOUT CONTRAST CLINICAL INDICATION: Female, 84 years old.[facility] metabolic encephalopathy TECHNIQUE: Multiplanar multisequence MR images of the brain were obtained without intravenous contras t. Unless otherwise specified, incidental findings do not require dedicated imaging follow-up. COMPARISON: Head CT and CT angiogram 07/10/2024 FINDINGS: INTRACRANIAL: Midline structures are unremarkable. On the diffusion-weighted images, multifocal satinder ical and deep white matter areas of diffusion restriction are present, most notably along the left middle cerebral gyrus, and left parietal lobe, extending to the trigonal ependyma. Mild mass effect. Few foci of petechial hemorrhage along the parietal and frontal lobe cortex, suggesting starting cortical necrosis. The involved regions illustrate corresponding T2/FLAIR signal abnormality and mild mass effect upon the adjacent sulci. The ventricles are otherwise normal in size and morphology. Another focus of susceptibility signal abnormality in the anterior right frontal subcortical white ma tter, suggesting a remote microhemorrhage. There is no mass effect or midline shift. No abnormal extraaxial fluid collection. Incidentally noted partially empty sella. VASCULATURE: Normal signal voids in the larger intracranial arteries and dural venous sinuses. SINUSES: The paranasal sinuses and mastoid air cells are predominantly clear. BONE: The marrow signal pattern is within normal limits. IMPRESSION: Multiple cortical and deep white matter areas of diffusion restriction and corresponding T2/FLAIR sig nal abnormality in the left MCA distribution as above, suggesting acute to subacute infarcts, possibly of embolic etiology given the distribution. Cortical foci of susceptibility signal abnormali ty, suggesting petechial hemorrhages/cortical necrosis. THIS REPORT CONTAINS FINDINGS THAT MAY BE CRITICAL TO PATIENT CARE. The findings were verbally commun icated via telephone to Peter Allan NP on 07/10/2024 2:45 PM.
--- NOTE | 2024-07-10 16:22 | P.PN ---
Date of Service: 07/10/24 Subjective: More alert Significant expressive aphasia Difficulty with communication No difficulty with swallowing, passed bedside swallow tolerating diet, taking pills No acute events overnight ROS: 10 point ROS as noted above, otherwise negative Physical exam GEN: Alert, oriented x 1-2, NAD HEENT: Normal conjunctiva, sclera anicteric CV: Regular rate and rhythm, no edema Pulm: Nonlabored respirations on room air ABD: Soft, nontender, nondistended MSK: No joint tenderness Integumentary: No rashes Neuro: Significant expressive aphasia noted, normal affect, moving all extremities NIH SCORE-4 Vitals reviewed Problem List Suspected acute CVA-history of CVA expressive aphasia NSTEMI Hypokalemia Hypertension Diabetes mellitus type 2insulin-dependent Hyperlipidemia Dementia Anxiety/depression Plan Acute ischemic CVA with petechial hemorrhage expressive aphasia NIH score 4 (severe aphasia, mild left facial droop, month and age-dysarthric) MRI shows Multiple cortical and deep white matter areas of diffusion restriction and corresponding T2/FLAIR signal abnormality in the left MCA distribution as above, suggesting acute to subacute infarcts, possibly of embolic etiology given the distribution. Cortical foci of susceptibility signal abnormality, suggesting petechial hemorrhages/cortical necrosis. D/W neurology-will hold off on Plavix given petechial hemorrhage, repeat CT head without contrast tomorrow Add Keppra 500 mg twice daily for seizure prophylaxis Gain better control of blood pressure aiming for less than 160 systolic MRI consistent with possible embolic nature-no A-fib noted on telemetry throughout hospitalization thus far Cannot anticoagulate now given petechial hemorrhage present on MRI Continue aspirin, statin PT, OT, speech consulted Neurology consultation Every 6 hour neuroassessments Likely appropriate for inpatient rehab NSTEMI Troponins trended flat Monitor on telemetry, continue aspirin Cardiology consultation Echocardiogram with normal LVEF Hypokalemia Protocols in place, repleted Hypertension Continue home medications Will gain tighter control blood pressure now Added lisinopril to start now in addition to other medications Diabetes mellitus type 2insulin-dependent ACHS Accu-Chek, sliding scale insulin Hyperlipidemia Continue statin Dementia Anxiety/depression Continue home medications VTE: Lovenox Code: Full Dispo: 2-3 days inpatient rehab Time Spent Managing Pts Care (In Minutes): 35 <Peter Allan - Last Filed: 07/10/24 16:19> Patient seen and examined plan of care discussed with Peter Allan. Patient with no improvement in expressive dysphagia. MRI of the brain results reviewed and noted multiple areas of subacute to acute infarct in the distribution of the left MCA, as well as areas of petechial hemorrhages and cortical necrosis. MRI of the brain was all discussed with neurology Dr. Victoria who recommend aspirin only, no Plavix, high intensity statin, no anticoagulation and blood pressure control to keep her systolic blood pressure around 140. Patient currently on amlodipine 10 mg daily and Toprol-XL 50 mg daily, keeping her systolic blood pressure around 160. Hydralazine 25 mg TID times daily Hydralazine IV as needed for BP spikes. Awaiting speech evaluation to assess if patient has multiple needs which may qualify him for inpatient rehab. Echocardiogram is pending. Cardiology input appreciated. Medical management recommended for NSTEMI. <marbin dunaway - Last Filed: 07/10/24 18:20>
[2024-07-10] MEDS: lisinopriL 5 MG TAB PO ONE (17:36)
[2024-07-10] MEDS: levETIRAcetam 500 MG TAB PO SCH (17:37)
[2024-07-10] MEDS: HYDRALAZINE HCL 25 MG TABLET PO SCH (17:50)
[2024-07-11 06:18] LABS: Hematocrit 41.3 % (36.0-45.0); MCH 30.5 pg (27.0-35.0); MCHC 33.9 g/dL (32.0-36.0); MCV 90.1 fL (80-100); MPV 9.2 fL (7.6-11.3); Platelets 180 thou/uL (152-406); RBC Red Blood Cell Count 4.59 M/uL (3.86-4.86); Red Cell Distribution Width 13.2 % (12.1-15.2)
[2024-07-11 06:23] LABS: Anion Gap 8.5 mEq/L (5.0-15.0); Potassium 3.5 mEq/L (3.5-5.1)
--- NOTE | 2024-07-11 08:39 | P.PN ---
Date of Service: 07/11/24 Subjective: alert Significant expressive aphasia Difficulty with communication No difficulty with swallowing, passed bedside swallow tolerating diet, taking pills No acute events overnight ROS: 10 point ROS as noted above, otherwise negative Physical exam GEN: Alert, oriented x 2-3, NAD HEENT: Normal conjunctiva, sclera anicteric CV: Regular rate and rhythm, no edema Pulm: Nonlabored respirations on room air ABD: Soft, nontender, nondistended MSK: No joint tenderness Integumentary: No rashes Neuro: Significant expressive aphasia noted, normal affect, moving all extremities NIH SCORE-4 Vitals reviewed Problem List Suspected acute CVA-history of CVA expressive aphasia NSTEMI Hypokalemia Hypertension Diabetes mellitus type 2insulin-dependent Hyperlipidemia Dementia Anxiety/depression Plan Acute ischemic CVA with petechial hemorrhage expressive aphasia NIH score 4 (severe aphasia, mild left facial droop, month and age-dysarthric) MRI shows Multiple cortical and deep white matter areas of diffusion restriction and corresponding T2/FLAIR signal abnormality in the left MCA distribution as above, suggesting acute to subacute infarcts, possibly of embolic etiology given the distribution. Cortical foci of susceptibility signal abnormality, suggesting petechial hemorrhages/cortical necrosis. D/W neurology-will hold off on Plavix given petechial hemorrhage, repeat CT head without contrast tomorrow Add Keppra 500 mg twice daily for seizure prophylaxis Gain better control of blood pressure aiming for less than 160 systolic goal around 140 Added hydralazine 25mg tid MRI consistent with possible embolic nature-no A-fib noted on telemetry thro ughout hospitalization thus far Cannot anticoagulate now given petechial hemorrhage present on MRI Continue aspirin, statin PT, OT, speech consulted Neurology consultation Every 6 hour neuroassessments Likely appropriate for inpatient rehab NSTEMI Troponins trended flat Monitor on telemetry, continue aspirin Cardiology consultation Echocardiogram with normal LVEF Hypokalemia Protocols in place, repleted Hypertension Continue home medications Will gain tighter control blood pressure now Added lisinopril to start now in addition to other medications Diabetes mellitus type 2insulin-dependent ACHS Accu-Chek, sliding scale insulin Hyperlipidemia Continue statin Dementia Anxiety/depression Continue home medications VTE: Lovenox Code: Full Dispo: 2-3 days inpatient rehab
[2024-07-11] MEDS: POTASSIUM 25 MEQ EFFERV TAB PO ONE (10:01)
--- NOTE | 2024-07-11 12:06 | EKG ---
Test Date: 2024-07-08 Test Time: 11:12:34 Tree Worker: SUSAN MEASUREMENT RESULTS: Intervals: Rate: 84 MT: 236 QRSD: 94 QT: 410 QTc: 484 [place]: P: 79 MT: 236 QRS: 23 T: 31 INTERPRETIVE STATEMENTS: Sinus rhythm with 1st degree AV block with fusion complexes Cannot rule out Anterior infarct, age undetermined Abnormal ECG Compared to ECG 12/31/2021 07:34:41 Fusion complex(es) now present First degree AV block now present Myocardial infarct finding now present T-wave abnormality no longer present Prolonged QT interval no longer present Electronically Signed On 07-11-24 12:03:59 HOUSE WRECKER by Maksim Gray
--- NOTE | 2024-07-11 14:35 | RAD REPORT ---
EXAM: CT brain without contrast HISTORY: CVA COMPARISON: July 10, 2024 TECHNIQUE: Multiple contiguous axial images were obtained and a CT of the brain without contrast.. Sagittal and coronal reconstruction performed. Automated exposure control, adjustment of the mA and/or kV according to patient size, and/or iterative reconstruction. Unless otherwise specified, incidental f indings do not require dedicated imaging follow-up FINDINGS: 3.3 cm early subacute infarction left parietal lobe. It contains a couple punctate areas of increased density compatible with hemorrhage. It is without significant change in appearance from the prior exam. Ventricles are normal caliber No extra-axial fluid collection noted No fluid within the visualized sinuses or mastoids noted. IMPRESSION: 3.3 cm early subacute infarction left parietal lobe with a few punctate areas of hemorrhage without s ignificant change from the prior exam
--- NOTE | 2024-07-11 15:37 | ECHO ---
HEIGHT: 5 ft 4 in WEIGHT: 225 lb 0 oz DATE OF STUDY: 07/10/[address]: Peter Allan NP 2-DIMENSIONAL: YES M.MODE: YES DOPPLER: YES COLOR FLOW: YES TDS: NO PORTABLE: YES DEFINITY: NO BUBBLE STUDY: NO DIAGNOSIS: ELEVATED TROPONIN CARDIAC HISTORY: CATHERIZATION: NO SURGERY: NO PROSTHETIC VALVE: NO PACEMAKER: NO MEASUREMENTS (cm) DIASTOLIC (NORMALS) SYSTOLIC (NORMALS) IVSd 1.2 (0.6-1.2) LA Diam 2.5 (1.9-4.0) LVEF 55-60% LVIDd 2.7 (3.5-5.7) LVIDs 2.0 (2.0-3.5) %FS 25% LVPWd 1.3 (0.6-1.2) Ao Diam 2.1 (2.0-3.7) 2 DIMENSIONAL ASSESSMENT: RIGHT ATRIUM: NORMAL LEFT ATRIUM: MILDLY DILATED RIGHT VENTRICLE: NORMAL LEFT VENTRICLE: MODERATE LEFT VENTRICULAR HYPERTROPHY TRICUSPID VALVE: MILD TRICUSPID REGURGITATION MITRAL VALVE: SEVERE MIRTAL ANNULAR CALCIFICATION PULMONIC VALVE: NORMAL AORTIC VALVE: NORMAL PERICARDIAL EFFUSION: NONE AORTIC ROOT: NORMAL LEFT VENTRICULAR WALL MOTION: NORMAL. DOPPLER/COLOR FLOW: DIASTOLIC DYSFUNCTION. COMMENTS: 1. MILDLY DILATED LEFT ATRIUM. 2. MODERATE LEFT VENTRICULAR HYPERTROPHY. 3. NORMAL LEFT VENTRICULAR SYSTOLIC FUNCTION. LEFT VENTRICULAR EJECTION FRACTION 55-60%. NORMAL WALL MOTION. 4. DIASTOLIC DYSFUNCTION. 5. NORMAL FILLING PRESSURES. TECHNOLOGIST: JOLLY ESPARZA
[2024-07-12 04:54] LABS: Hematocrit 41.5 % (36.0-45.0); Hemoglobin 13.9 g/dL (12.0-15.0); MCH 30.4 pg (27.0-35.0); MCHC 33.6 g/dL (32.0-36.0); MCV 90.5 fL (80-100); MPV 9.7 fL (7.6-11.3); Platelets 154 thou/uL (152-406); RBC Red Blood Cell Count 4.58 M/uL (3.86-4.86); Red Cell Distribution Width 13.1 % (12.1-15.2)
[2024-07-12 05:15] LABS: Anion Gap 8.5 mEq/L (5.0-15.0); Potassium 3.5 mEq/L (3.5-5.1)
[2024-07-12] MEDS: POTASSIUM CL SA 10 MEQ TAB PO ONE (08:18)
--- NOTE | 2024-07-12 09:18 | P.PN ---
Date of Service: 07/12/24 Subjective: Significant expressive aphasia-improving slowly No difficulty with swallowing, passed bedside swallow tolerating diet, taking pills No acute events overnight ROS: 10 point ROS as noted above, otherwise negative Physical exam GEN: Alert, oriented x 2-3, NAD HEENT: Normal conjunctiva, sclera anicteric CV: Regular rate and rhythm, no edema Pulm: Nonlabored respirations on room air ABD: Soft, nontender, nondistended MSK: No joint tenderness Integumentary: No rashes Neuro: Significant expressive aphasia noted, normal affect, moving all extremities NIH SCORE-4 Vitals reviewed Problem List Suspected acute CVA-history of CVA expressive aphasia NSTEMI Hypokalemia Hypertension Diabetes mellitus type 2insulin-dependent Hyperlipidemia Dementia Anxiety/depression Plan Acute ischemic CVA with petechial hemorrhage expressive aphasia NIH score 4 (severe aphasia, mild left facial droop, month and age-dysarthric) MRI shows Multiple cortical and deep white matter areas of diffusion restriction and corresponding T2/FLAIR signal abnormality in the left MCA distribution as above, suggesting acute to subacute infarcts, possibly of embolic etiology given the distribution. Cortical foci of susceptibility signal abnormality, suggesting petechial hemorrhages/cortical necrosis. D/W neurology-will hold off on Plavix given petechial hemorrhage, Repeat head CT 07/12 stable Add Keppra 500 mg twice daily for seizure prophylaxis Gain better control of blood pressure aiming for less than 160 systolic goal around 140 Added hydralazine 25mg tid MRI consistent with possible embolic nature-no A-fib noted on telemetry throughout hospitalization thus far Cannot anticoagulate now given petechial hemorrhage present on MRI Continue aspirin, statin-no plavix until follow up with neuro given presence of petechial hemorrhage PT, OT, speech consulted Neurology consultation Every 6 hour neuroassessments Likely appropriate for inpatient rehab NSTEMI Troponins trended flat Monitor on telemetry, continue aspirin Cardiology consultation Echocardiogram with normal LVEF Hypokalemia Protocols in place, repleted Hypertension Continue home medications Will gain tighter control blood pressure now Added lisinopril to start now in addition to other medications Diabetes mellitus type 2insulin-dependent ACHS Accu-Chek, sliding scale insulin Hyperlipidemia Continue statin Dementia Anxiety/depression Continue home medications VTE: Lovenox Code: Full Dispo: 1-2 days inpatient rehab
[2024-07-12 14:14] VITALS: O2SAT 96
[2024-07-13 05:13] LABS: Anion Gap 8.8 mEq/L (5.0-15.0); Potassium 3.8 mEq/L (3.5-5.1)
[2024-07-13] MEDS: POTASSIUM CL SA 10 MEQ TAB PO ONE (09:06)
--- NOTE | 2024-07-13 19:37 | P.PN ---
Date of Service: 07/13/24 Subjective: Good conversation this morning Working with therapy Awaiting IRF approval ROS: 10 point ROS as noted above, otherwise negative Physical exam GEN: Alert and oriented x 2-3, NAD HEENT: Normal conjunctiva, sclera anicteric CV: RRR, S1 S2 present, no edema Pulm: Nonlabored respirations on room air ABD: Soft and benign on palpation, NT/ND MSK: No joint tenderness Integumentary: No rashes Neuro: Significant expressive aphasia noted, normal affect, moving all extremities NIH SCORE-1 Vitals reviewed Problem List Suspected acute CVA-history of CVA expressive aphasia NSTEMI Hypokalemia Hypertension Diabetes mellitus type 2insulin-dependent Hyperlipidemia Dementia Anxiety/depression Plan Acute ischemic CVA with petechial hemorrhage expressive aphasia NIH score 1 (mild left facial droop) MRI shows Multiple cortical and deep white matter areas of diffusion restriction and corresponding T2/FLAIR signal abnormality in the left MCA distribution as above, suggesting acute to subacute infarcts, possibly of embolic etiology given the distribution. Cortical foci of susceptibility signal abnormality, suggesting petechial hemorrhages/cortical necrosis. D/W neurology-will hold off on Plavix given petechial hemorrhage, Repeat head CT 07/12 stable Add Keppra 500 mg twice daily for seizure prophylaxis Gain better control of blood pressure aiming for less than 160 systolic goal around 140 Added hydralazine 25mg tid MRI consistent with possible embolic nature-no A-fib noted on telemetry throughout hospitalization thus far Cannot anticoagulate now given petechial hemorrhage present on MRI Continue aspirin, statin-no plavix until follow up with neuro given presence of petechial hemorrhage PT, OT, speech consulted Neurology consultation Every 6 hour neuroassessments Likely appropriate for inpatient rehab NSTEMI Troponins trended flat Monitor on telemetry, continue aspirin Cardiology consultation Echocardiogram with normal LVEF Hypokalemia Protocols in place, repleted Hypertension Continue home medications Will gain tighter control blood pressure now Added lisinopril to start now in addition to other medications Diabetes mellitus type 2insulin-dependent ACHS Accu-Chek, sliding scale insulin Hyperlipidemia Continue statin Dementia Anxiety/depression Continue home medications VTE: Lovenox Code: Full Dispo: 1-2 days inpatient rehab
[2024-07-14 05:34] LABS: Anion Gap 8.7 mEq/L (5.0-15.0); Potassium 3.7 mEq/L (3.5-5.1)
[2024-07-14] MEDS: POTASSIUM CL SA 10 MEQ TAB PO ONE (09:16)
--- NOTE | 2024-07-14 10:30 | P.PN ---
Date of Service: 07/14/24 Subjective: Awake, sitting in the chair, happy and singing this AM Walking with therapy Awaiting IRF approval ROS: 10 point ROS as noted above, otherwise negative Physical exam GEN: Awake, Alert, and oriented x 2, NAD HEENT: Normal conjunctiva, sclera anicteric CV: NSR, S1 S2 present, no edema Pulm: Nonlabored respirations on room air ABD: Soft on palpation, NT/ND, normal active bowel sounds MSK: No joint tenderness Integumentary: No rashes Neuro: Significant expressive aphasia noted, normal affect, moving all extremities NIH SCORE-0 Vitals reviewed Problem List Suspected acute CVA-history of CVA expressive aphasia NSTEMI Hypokalemia Hypertension Diabetes mellitus type 2insulin-dependent Hyperlipidemia Dementia Anxiety/depression Plan Acute ischemic CVA with petechial hemorrhage expressive aphasia-improved NIH score 0 MRI shows Multiple cortical and deep white matter areas of diffusion restriction and corresponding T2/FLAIR signal abnormality in the left MCA distribution as above, suggesting acute to subacute infarcts, possibly of embolic etiology given the distribution. Cortical foci of susceptibility signal abnormality, suggesting petechial hemorrhages/cortical necrosis. D/W neurology-will hold off on Plavix given petechial hemorrhage, Repeat head CT 07/12 stable Add Keppra 500 mg twice daily for seizure prophylaxis Gain better control of blood pressure aiming for less than 160 systolic goal around 140 Added hydralazine 25mg tid MRI consistent with possible embolic nature-no A-fib noted on telemetry throughout hospitalization Cannot anticoagulate now given petechial hemorrhage present on MRI Continue aspirin, statin-no plavix until follow up with neuro given presence of petechial hemorrhage PT, OT, speech consulted Neurology consultation Every 6 hour neuroassessments Appropriate for inpatient rehab NSTEMI Troponins trended flat Monitor on telemetry, continue aspirin Cardiology consultation Echocardiogram with normal LVEF Hypokalemia Protocols in place, repleted Hypertension Continue home medications Will gain tighter control blood pressure now Added lisinopril to start now in addition to other medications Diabetes mellitus type 2insulin-dependent ACHS Accu-Chek, sliding scale insulin Hyperlipidemia Continue statin Dementia Anxiety/depression Continue home medications VTE: Lovenox Code: Full Dispo: inpatient rehab
[2024-07-14 12:17] VITALS: BP 145/68; TEMP 97.5
--- NOTE | 2024-07-14 12:56 | P.DS ---
Admission Date: 07/08/24 Discharge Date: 07/14/24 Disposition: TRANSFER TO INPATIENT REHAB Discharge Condition: GOOD Reason for Admission: Metabolic cephalopathy, polypharmacy, NSTEMI Brief History of Present Illness: Diagnosis Suspected acute CVA-history of CVA expressive aphasia NSTEMI Hypokalemia Hypertension Diabetes mellitus type 2insulin-dependent Hyperlipidemia Dementia Anxiety/depression HPI 07/08/24 Ana Munson is an 84-year-old woman with a past medical history significant for history of CVA (2021) unknown residual deficits, dementia, anxiety/depression, HTN, DMT2 insulin-dependent, and HDL presented to the emergency room with altered mental status. Per EMS report, the patient possibly had a fall and was found in her doorway earlier today. The patient is alert, but oriented to first name only. No family is present at bedside. The patient is a poor historian, and is having trouble word finding. She is afebrile, and is not voicing any complaints at this time. Hospital Course: Ana Munson was found to have an Acute ischemic CVA with petechial hemorrhage and elevated troponin. Dr. Gray consulted finding no need for further cardiac workup inpatient but recommends outpatient stress test. Dr. Victoria consulted and recommendations provided. Ana experienced aphasia and worked well with speech therapy who reported improvement. She was able to work with physical therapy and ambulated 250 feet. She started to overcome her deficits. She was approved for inpatient rehab and will continue therapy. During this admission she was started on keppra for seizure prophylaxis. She is tolerating PO diet, denies urinary symptoms, and is conversing well with some confusion. On 07/14/24, Ana was seen on morning rounds and deemed medically stable for dis charge to inpatient rehab. Ana was discharged with instructions to schedule follow-up appointments with PCP and Dr. Victoria. Ana was provided prescriptions for Keppra and crestor. Vital Signs/Physical Exam: Temp Pulse Resp BP Pulse Ox 97.5 F 76 16 145/68 H 95 07/14/24 12:00 07/14/24 12:00 07/14/24 12:00 07/14/24 12:00 07/14/24 12:00 Laboratory Data at Discharge: WBC 6.70 thou/uL (4.3-10.9) 07/12/24 04:20 Hgb 13.9 g/dL (12.0-15.0) 07/12/24 04:20 Hct 41.5 % (36.0-45.0) 07/12/24 04:20 Plt Count 154 thou/uL (152-406) 07/12/24 04:20 PT 12.2 SECONDS (9.4-12.5) 07/08/24 11:15 INR 1.09 07/08/24 11:15 APTT 32.6 SECONDS (24.3-36.9) 07/08/24 11:15 Sodium 138 mEq/L (136-145) 07/14/24 04:44 Potassium 3.7 mEq/L (3.5-5.1) 07/14/24 04:44 BUN 24 mg/dL (7-18) H 07/14/24 04:44 Creatinine 0.88 mg/dL (0.55-1.02) 07/14/24 04:44 Glucose 195 mg/dL (74-106) H 07/14/24 04:44 Phosphorus 2.4 mg/dL (2.5-4.9) L 07/09/24 04:24 Magnesium 1.6 mg/dL (1.6-2.4) 07/09/24 04:24 Total Bilirubin 0.8 mg/dL (0.2-1.0) 07/09/24 04:24 AST 14 U/L (15-37) L 07/09/24 04:24 ALT < 14 U/L (13-56) 07/09/24 04:24 Alkaline Phosphatase 77 U/L (45-117) 07/09/24 04:24 LDL Cholesterol Direct 64 mg/dL (100-129) L 07/13/24 04:25 Home Medications: Amlodipine [Norvasc*] 1 tab PO DAILY 10/20/21 Escitalopram [Lexapro*] 1 tab PO DAILY 10/20/21 Insulin Degludec/Liraglutide [Xultophy 100 Unit-3.6MG/ml Pen] 40 units IN DAILY 10/20/21 Metoprolol Succinate [Toprol Xl*] 1 tab PO DAILY 10/20/21 Temazepam [Restoril*] 1 tab PO PRN 10/20/21 Rosuvastatin [Crestor*] 40 mg PO BEDTIME 30 Days #30 tab 07/14/24 levETIRAcetam [Keppra*] 500 mg PO BID 30 Days #60 tab 07/14/24 New Medications: Rosuvastatin [Crestor*] 40 mg PO BEDTIME 30 Days #30 tab levETIRAcetam [Keppra*] 500 mg PO BID 30 Days #60 tab Physician Discharge Instructions: 1. Follow up with PCP in one week -all refills will be managed by the PCP 2. Discharge to inpatient rehab 3. Follow up with Dr. Victoria in one week 4. continue diabetic diet 5. fall precaution, work with therapy New medication Keppra 500 mg twice daily Aspirin 81 mg daily Crestor 40 mg daily, dosage changed Diet: ADA Activity: Fall precautions Followup: Mike Heath DO [Primary Care Provider] - Severino Victoria MD [ASSOCIATE-ACTIVE - CAN ADMIT] -
== END 2024-07-14 14:17 | DRG 64 ==
LOC: ER 10:24 → ERHOLD 16:46 → 2ND 17:48
PROVIDERS: ADMIT Internal Medicine; ATTEND Hospitalist
PROC: 4A033R1 Measurement of Arterial Saturation, Peripheral, Percutaneous Approach (ICD-10-PCS; principal; 2024-07-08)
DX: I63.9 Cerebral infarction, unspecified (principal); G93.41 Metabolic encephalopathy; I21.A1 Myocardial infarction type 2; F03.93 Unspecified dementia, unspecified severity, with mood disturbance; F03.94 Unspecified dementia, unspecified severity, with anxiety; E87.6 Hypokalemia; E11.9 Type 2 diabetes mellitus without complications; I10 Essential (primary) hypertension; E78.5 Hyperlipidemia, unspecified; D72.829 Elevated white blood cell count, unspecified; R47.01 Aphasia; R29.810 Facial weakness; R47.1 Dysarthria and anarthria; R23.3 Spontaneous ecchymoses; R29.704 NIHSS score 4; Z88.2 Allergy status to sulfonamides; Z88.5 Allergy status to narcotic agent; Z79.4 Long term (current) use of insulin; Z86.73 Personal history of transient ischemic attack (TIA), and cerebral infarction without residual deficits; Z79.52 Long term (current) use of systemic steroids; Z79.899 Other long term (current) drug therapy; Z90.710 Acquired absence of both cervix and uterus
CPT/HCPCS: 36415; 36600; 70450; 70496; 70498; 70551; 71046; 72100; 72125; 80048; 80053; 80076; 80143; 80179; 80307; 81001; 82077; 82140; 82550; 82805; 82947; 83036; 83735; 83880; 84100; 84132; 84145; 84443; 84484; 85025; 85027; 85610; 85730; 87040; 92507; 92523; 93005; 93306; 94640; 94760; 97116; 97161; 97165; 97530; 99285; J0360; J1644; J1650; J7030; J7644; Q9967

== ENCOUNTER 2024-07-14 13:19 | Inpatient (IN) | payer MEDICARE ==
[2024-07-14] MEDS ORDERED: D10W 125 ML IV PRN (15:02)
[2024-07-14] MEDS ORDERED: GLUCAGON 1 MG/VIAL IM PRN (15:02)
[2024-07-14 17:24] LABS: Sqamous Epithelial <5 /HPF (None Seen); Urine Bacteria None Seen /HPF (<20); Urine Culture Reflex Order NOT NEEDED; Urine Mucus Slight /HPF (None Seen); Urine RBC <5 /HPF (None Seen)
[2024-07-14 17:29] LABS: Specific Gravity 1.023 (1.005-1.030); Urine Bilirubin NEGATIVE (Negative); Urine Blood Negative (Negative); Urine Clarity Clear (Clear); Urine Color Light-Yellow (Yellow); Urine Glucose 4+ (Over) (Negative); Urine Ketones NEGATIVE (Negative); Urine Micro Reflex YN NO BILL NO MICROSCOPIC; Urine Nitrite NEGATIVE (Negative); Urine Protein NEGATIVE (Negative); Urine Urobilinogen Normal (Normal)
[2024-07-14] MEDS: INSULIN REGULAR (HUMAN) 100 UNIT/ML SQ SCH (17:30)
[2024-07-14] MEDS: ROSUVASTATIN 10 MG TAB PO SCH (19:48)
[2024-07-14] MEDS: levETIRAcetam 500 MG TAB PO SCH (19:49)
--- NOTE | 2024-07-14 22:56 | HP ---
Date of Admission: 07/14/2024 Time Of Service: 2 p.m. Chief Complaint: "I have problems in ostium." History Of Present Illness: Ms. Munson is an 84-year-old patient with hypertension, diabetes mellitu s type 2, dyslipidemia, who actually lives in an apartment and was found down on the entryway of her apartment. She was evaluated and diagnosed with jwt-WV-[id number] myocardial infarction along with expr essive aphasia and likely determined to be a cardioembolic source of the stroke in addition to diabet es, dyslipidemia, hypertension along with dementia. She was evaluated in the Cardiology Service and had comorbid conditions addressed. She was evaluated by Physical, Occupational, and Speech Therapy S maxine and found to require moderate assistance for communication due to the expressive aphasia. She had decrease in her mobility and physical functioning, requiring min to mod assist for transfers, am bulation and activities of daily living. Prior to her hospitalization, she lived independently, used a single prong cane and was able to cook for herself and perform her activities of daily living, alt srikanth she did have assistance to go from her apartment and take care of her cleaning. At this point, she requires minimum assistance for sit to stand. Ambulation requires a walker with minimum assista nce. Also to perform activities of daily living. Dress upper and lower body requiring minimum lance tance. Further for effective communication, she would benefit from aggressive speech therapy to help her move towards a modified independence level of communication. As a result, she is determined to be appropriate candidate for aggressive inpatient rehabilitation along with management of her comorbi d conditions to help her reduce the risk of rehospitalization and return to her prior level of functi oning. Past Medical History: Anxiety, depression, dementia, hypertension, diabetes mellitus type 2, on insu samira, dyslipidemia. Past Surgical History: Right temporal lobe biopsy, hysterectomy. Allergies: AZITHROMYCIN, CODEINE, ERYTHROMYCIN, SULFONAMIDE, ANTIBIOTICS, VENLAFAXINE. Current Medications: Norvasc 10 mg daily, Lovenox 40 mg subcutaneously daily, Novolin insulin slidin g scale, Keppra 500 mg twice daily, metoprolol 50 mg daily, rosuvastatin 40 mg at bedtime. X-ray/imaging: Head CT scan on 07/08/2024 shows no evidence of acute intracranial abnormality. A CT angiogram on 07/08/2024, no significant flow abnormalities identified. CT angiogram of her neck on 07/08/2024, no significant flow abnormalities identified. A chest x-ray on 07/08/2024, moderate bila teral pulmonary opacities likely representing pulmonary edema versus pneumonia. Heart is upper limit of normal size. No fractures identified. Brain MRI on 07/10/2024 shows multiple cortical and deep white matter areas of diffusion restriction and corresponding T2/FLAIR signal abnormalities in the le ft MCA territory suggestive of acute to subacute infarcts, possibly of embolic etiology given distrib ution. The cortical foci of susceptibility signal abnormality suggests petechial hemorrhages and cor tical necrosis. Lumbar spine x-ray done on 07/10/2024, no acute lumbar spine abnormalities. Progres lupe of degenerative changes at L3 for presumably degeneration as there is no significant endplate ir regularity to suggest diskitis or osteomyelitis. CT scan of the head repeated on 07/11/2024 shows 3. 3 cm early subacute infarct in left parietal lobe, few punctate areas of hemorrhage without significa nt change from the prior examination. Family History: Noncontributory. Social History: The patient lives in the apartment and is typically independent. No alcohol, tobacc o, or IV drug use. Current Level Of Functioning: Standby assistance for her balance deficits, setup assistance for eati ng, supervision for grooming, moderate assistance for bathing, upper body dressing contact guard assi stance, lower body dressing and donning and doffing footwear moderate assistance required, transferri ng from bed to chair to wheelchair moderate assistance, toilet transfers moderate assistance, ambulat ion moderate assistance, and she was able to go up to 50 feet. She does have difficulty expressing h er thoughts and ideas, may misidentify words and have some difficulty with processing, although her l evel of aphasia is fluent. Physical Examination: Vital Signs: Blood pressure 135/63, pulse 67, respiratory rate 14, temperature 97.7, oxygen saturati on 97%. Weight 213 pounds, height 5 feet 1 inch, BMI 40.3. General: Ms. Munson is sitting in a chair in the unit in her room. HEENT: She appears normocephalic, atraumatic. Sclerae anicteric. Oropharynx pink and moist. Neck: Supple. Chest: Clear. Heart: Regular. Extremities: No significant edema, cyanosis, or clubbing noted. Neuro: She is alert and oriented to person, place, situation. She has very good and normal articula tion of labial, lingual, and guttural sounds. She has occasional anomia, may misidentify objects, ho wever, is subtle. She does not have any focal cranial nerve deficits that are obvious. Her strength in the upper and lower extremities symmetric, diffusely weak. Coordination intact. Stocking-glove loss, depressed reflexes. Rehab And Medical Assessment And Plan: Ms. Munson is an 84-year-old patient, admitted to the [facility] rehabilitation unit with impairment category 01, stroke. Impairment group code is 01.4, stroke wi thout paresis with aphasia. Etiologic diagnosis, cardioembolic stroke. In addition, comorbidities a re myocardial infarction, congestive heart failure, dyslipidemia, insulin-dependent diabetes mellitus , anxiety, depression. Plan: 1.She will have physical, occupational, and speech therapy for 3.5 hours, 5 of 7 days. 2.We will continue Norvasc and metoprolol for blood pressure control. She does have Keppra on board for seizure risk reduction at 500 mg twice daily during these microhemorrhages, she has Crestor 40 m g at bedtime for her dyslipidemia, Lovenox 40 mg subcutaneously daily for DVT prophylaxis. Comorbidities That Are Impacting Rehabilitation: She does have on imaging evidence of microhemorrhag es which are on areas of necrosis in her stroke distribution. Currently, no manifestation of seizure s and she is on Keppra. We will continue Keppra at least a month to minimize the risk of focal epile ptiform discharges and seizures. We will continue with Lovenox for DVT prophylaxis. May hold on asp irin at this point. We will keep the blood pressures if possible or less than 150 systolic given the small hemorrhages. For diabetic neuropathic pain, addition of gabapentin if need be, put her on a m ild sliding scale for diabetes mellitus, and will have stool softeners as needed and insomnia to be a ddressed with melatonin and additionally pain addressed with Tylenol. Rehab Specific Plan: Ms. Munson will have physical, occupational, and speech therapy for 3.5 hours, 5 of 7 days. Speech will be very important to help her return towards her prior level of cognitive f unctioning, to improve her expressive aphasia and work on any issues of swallowing. Physical therapy to help her with her mobilization both with rolling walker and wheelchair and a single prong cane if possible. Also work on steps. Occupational therapy to work on her activities of daily living, dres sing upper and lower body, ability to transfer into bed, chair, toilet, and shower and perform those activities. Ms. Munson has a good understanding of the process of admission to the inpatient rehabilitation [facility] and how she will benefit from physical, occupational, and speech therapy. She will have 24 hours a day, 7 days a week skilled rehabilitation and nursing, daily physician evaluation and management, and medical social consultant evaluation and management for discharge planning, home equipment, and continuing therapy along with physician followup. If need be, additional help from the Hospitalist Service and Cardiology Service will be sought. Barriers To Discharge: She is at significant risk of falling and given the embolic strokes and poten tial for fibrillation along with the current areas of bleeding, she may have a complicated course, wh ere there may be more central nervous system bleeding and seizures in addition to cardioembolic strok es, may prolong her stay or may lead her to have extended stay at a care home depending on how she is doing. Interval CT scan of the head may be done to rule out any worsening microhemorrhages. Length Of Stay: About 10 days. Disposition: Expected to be home where she will continue therapy via Home Health. Prognosis: Good. Code Status: Full code. Rehab Specific Goals: 1.She will become independent with upper and lower body dressing, donning and doffing footwear. 2.Independent with all activities of daily living. 3.Independently mobilize at least 250 feet with a rolling walker and wheelchair and go up and down 1 0 steps with bilateral handrails. 4.Independently be able to express herself, comprehend speech, and to work with her judgment, memory , processing in terms of her cognitive functioning towards a modified independence level. The above goals were reviewed with Ms. Munson and she is in agreement. By signing this document, I acknowledge I performed a full physical examination on Ms. Munson no late r than 24 hours after her admission to the inpatient rehabilitation facility and determined that she is able to tolerate the above course of treatment at an intensive level for a reasonable period of ti me. A detailed individualized plan of care for her will be completed by hospital day 4 based on the preadmission screen, history and physical, and therapy evaluations. LB/MODL Voice ID: [id number]
[2024-07-15] MEDS: METOPROLOL XL 50 MG TAB PO SCH (05:08)
[2024-07-15 05:18] LABS: Absolute Basophils 0.1 K/uL (0-0.5); Absolute Eosinophils 0.5 K/uL (0-0.5); Absolute Lymphocytes (CBC) 2.6 K/uL (0.7-4.9); Absolute Monocytes 0.6 K/uL (0.1-1.3); Absolute Neutrophil 4.7 K/uL (1.8-8.0); Basophils % 0.9 % (0-1.3); Hemoglobin 13.3 g/dL (12.0-15.0); Lymphocytes % 30.7 % (15.3-44.8); MCHC 33.2 g/dL (32.0-36.0); MCV 90.5 fL (80-100); MPV 9.9 fL (7.6-11.3); Monocytes % 6.9 % (3.3-12.3); Neutrophils % 55.5 % (41.7-73.7); Nucleated Red Blood Cells % 0.1 % (0-0); Platelets 156 thou/uL (152-406); RBC Red Blood Cell Count 4.42 M/uL (3.86-4.86); Red Cell Distribution Width 13.2 % (12.1-15.2)
[2024-07-15 05:37] LABS: Albumin 3.1 g/dL (3.4-5.0); Anion Gap 9.8 mEq/L (5.0-15.0); Magnesium 1.9 mg/dL (1.6-2.4); Potassium 3.8 mEq/L (3.5-5.1); Prealbumin 14.4 mg/dL (20-40)
[2024-07-15] MEDS: ESCITALOPRAM 20 MG TAB PO SCH (08:04)
[2024-07-15] MEDS: AMLODIPINE 10 MG TAB PO SCH (08:04)
[2024-07-15] MEDS: ENOXAPARIN 40 MG/0.4 ML SQ SCH (08:05)
[2024-07-15] MEDS: METFORMIN HCL 500 MG TAB PO SCH (08:13)
--- NOTE | 2024-07-15 08:56 | RAD REPORT ---
EXAM: Chest Single View HISTORY: COUGH COMPARISON: 07/08/2024 FINDINGS: LUNGS/PLEURA: Similar aeration of lungs. Some mild prominence of the pulmonary interstitium is noted. Similar slight elevation of left hemidiaphragm. MEDIASTINUM: The mediastinal silhouette is within normal limits. CARDIAC: The cardiac silhouette is within normal limits. UPPER ABDOMEN: No significant abnormality. BONES: No acute fracture. LINES/TUBES/OTHER: N/A IMPRESSION: Similar aeration of the lungs compared with 07/08/2024 which could reflect either mild interstitial e debra versus chronic changes. No consolidative airspace disease identified.
[2024-07-15] MEDS: ACETAMINOPHEN 500 MG TAB PO PRN (20:31)
[2024-07-16] MEDS: CRANBERRY FRUIT EXTRACT 425 MG CAPSULE PO SCH (07:52)
--- NOTE | 2024-07-17 22:59 | PN ---
Date of Progress Note: 07/17/2024 Time Of Service: 1:15 p.m. Subjective: Ms. Munson is happy with therapy. She is recovering well and has no new complaints. Objective: No fevers, chills, nausea, vomiting. No myalgias, arthralgias. Her blood sugars have be en somewhat elevated, but no symptoms referable to blood sugars which have ranged 242 down to 183. Physical Examination: Vital Signs: Blood pressure 148/62, pulse 62, respiratory rate 17, temperature 97.7, oxygen saturati on 93%. Neuro: Her stroke is not a paretic stroke, but anaphasic stroke and again she is doing very well wit h that respect. In terms of exam, cranial nerves, no obvious focal deficits. Motor, upper and lower extremities, no focal weakness, mild diffuse weakness, stocking-glove loss to light, touch, temperat ure. Depressed reflexes. Laboratory Studies: Complete blood count with differential is completely normal. Her sodium 141, po tassium 3.8, chloride 111, carbon dioxide 24, BUN 26, creatinine 0.83, glucose 162, calcium is 9.6. She is on metformin 500 mg twice daily for blood sugar control. In addition, prealbumin 14.4, albumi n 3.1, magnesium 1.9. X-ray/imaging: Chest x-ray was done on 07/15. The study showed similar aeration compared to a study from 07/08, which could reflect either mild interstitial edema versus chronic changes. No consolida tion or airspace disease identified. Medications: Tylenol 500 mg every 4 hours as needed, Norvasc 10 mg daily, Lovenox 40 mg subcutaneous ly daily, Lexapro 20 mg daily, Keppra 500 mg twice daily, metformin 500 mg twice daily, Toprol-XL 500 mg daily, Crestor 40 mg at bedtime, and Restoril 15 mg at bedtime. Note, we will increase metformin from 500 mg twice daily to 850 mg twice daily because of her uncontrolled blood sugars. Progress Made With Physical And Occupational Therapy: Today with physical therapy, she completed whe elchair mobilization 250 feet with supervision, up and down 15 steps with supervision, ene-bn-oklfy t ransfers and ecyhn-vm-rgeyo transfer done with contact guard assistance. She did ambulate 250 feet w ith standby assistance on the rolling walker also and 520 feet with standby assistance without an ass istive device, was up and down 25 steps with standby assistance and bilateral handrails. With occupa tional therapy, demonstrated independent level of bed mobilization, sink side oral hygiene while caryl ramsey in front of the sink with independence. She was initially seen by Speech and actually has done very well and graduated out of speech very quickly. Assessment: Ms. Munson is an 84-year-old patient, admitted to rehabilitation unit with a stroke that has left her with mild aphasia. She is actually doing excellent with good expression, comprehension , and is doing excellent with physical and occupational therapy as well. She has mild decreased mobi lity, decreased physical functioning in addition to myocardial infarction, congestive heart failure, dyslipidemia, insulin-dependent diabetes mellitus, anxiety, and depression. Plan: 1.She will continue with physical and occupational therapy, 3 hours a day, 5 of 7 days. Currently, metformin is adjusted. Consider her Semglee insulin in addition depending on the improvement of bloo d sugar. 2.Continue with Keppra 500 mg twice daily for seizure risk reduction, Crestor for dyslipidemia. She has Restoril for insomnia, citalopram for depression, Norvasc for blood pressure control, Lovenox fo r DVT prophylaxis, metoprolol for heart rate control. Comorbidities That Are Impacting Rehabilitation: Her diabetes mellitus currently is poorly controlle d. Medication adjustments being made. Otherwise, she is actually doing very well with comprehension and expression, following all instructions, expressing herself appropriately. She has no dysphagia issues. LB/MODL Voice ID: [id number] Report ID: [id number]
[2024-07-18] MEDS: METFORMIN HCL 850 MG TAB PO SCH (07:58)
[2024-07-18] MEDS: LOPERAMIDE HCL 2 MG CAPSULE PO PRN (18:19)
[2024-07-18] MEDS: INSULIN GLARGINE 100 UNIT/ML SQ SCH (19:50)
--- NOTE | 2024-07-18 20:41 | PN ---
Date of Progress Note: 07/18/2024 Time Of Service: 1:25 p.m. Subjective: Ms. Munson is resting comfortably at side of the bed sitting. She is fully alert, awake , and was able to recite the [place] picked a [place] of pickled pepper, tongue twister without diff iculty. Follows all commands appropriately. She says she has no complaints despite the stroke affec ting her ability to communicate. She is actually doing excellent, physically very excellent as well. Objective: No fevers, chills, nausea, vomiting, myalgias, arthralgias, rash. No vague complaints. Otherwise, she is very happy with her progress and knows she will be ready to go home in very good sh ape to continue therapy via Home Health. Physical Examination: Vital Signs: Blood pressure 139/70, pulse 66, respiratory rate 20, temperature 97.4, oxygen saturati on 94%. General: Ms. Munson is sitting at side of bed. She is in no acute distress. HEENT: She is normocephalic, atraumatic. Sclerae anicteric. Oropharynx moist. Neck: Supple. Chest: Clear. Heart: Regular. Extremities: No clubbing, cyanosis, or edema. Neurological: Very much intact comprehension, expression, and mood. Shows no focal deficits in uppe r or lower extremities. No focal sensory deficit as well. Laboratory Studies: Blood sugars ranged from 219 to 257. She is now started on Semglee insulin 20 u nits at bedtime and may change it to 20 units twice daily. It should be noted that the patient was o n 40 units at home on long-term insulin. Again, we will put 20 units twice daily of Semglee insulin as a change to her regimen. Otherwise, we will continue with the Tylenol 500 mg every 4 hours as nee ded, amlodipine 10 mg daily, cranberry extract 425 mg daily, Lovenox 40 mg subcutaneously daily, [place] pro 20 mg daily. Continue with metformin 850 mg twice daily, Keppra 500 mg twice daily, metoprolol 5 0 mg daily with simvastatin 40 mg at bedtime, Restoril 15 mg at bedtime. X-ray/imaging: No new x-rays or imaging. Progress Made With Physical And Occupational Therapy: Today, she was able to complete xgi-zh-ysxhn t ransfers and vnlyx-cc-cinhf transfers with contact guard assistance. Completed bed mobility with con tact guard assistance as well. Mobilize rolling walker 600 feet with supervision with 1 standing kendy ak. With occupational therapy, independent with toilet transfers, needed supervision, verbal cues fo r sequencing tasks, making very good progress noted by therapist, lower body dressing independent, up per body dressing independent. With speech, she needed moderate verbal cues to understand organizati onal layout of her pill saha. She did not currently know which medication she took nor the dosage or frequency. Therapist is working on helping her with the organization. Assessment: Ms. Munson is an 84-year-old patient, admitted to rehabilitation unit with a cardioembol ic stroke with some difficulty with expression. She does have some issues of short-term memory as no lazaro by Speech. Physically, doing very well physical and occupational therapy. She does have diabete s mellitus requiring better control, Semglee insulin output at 20 units twice daily. She was on 40 u nits at home long-standing insulin. She will go back home on that. She is in addition on metformin 850 mg twice daily. Also, Norvasc for her blood pressure control at 10 mg daily, Crestor for dyslipi demia. She has Restoril for her insomnia, Keppra for seizure risk reduction, Lexapro for depression, Lovenox for DVT prophylaxis. Comorbidities Impacting Rehabilitation: Currently, the blood sugars are being controlled, control is not yet achieved and long-acting insulin is being adjusted and the metformin also to achieve better blood sugar control prior to the patient going back home. LB/MODL Voice ID: [id number] Report ID: [id number]
[2024-07-18] MEDS ORDERED: INSULIN GLARGINE 100 UNIT/ML SQ SCH (21:00)
[2024-07-18] MEDS: TEMAZEPAM 15 MG CAP PO PRN (22:50)
[2024-07-20 06:21] LABS: Absolute Basophils 0.1 K/uL (0-0.5); Absolute Eosinophils 0.4 K/uL (0-0.5); Absolute Lymphocytes (CBC) 2.5 K/uL (0.7-4.9); Absolute Monocytes 0.6 K/uL (0.1-1.3); Absolute Neutrophil 4.2 K/uL (1.8-8.0); Eosinophils % 5.1 % (0-4.4); Hematocrit 39.9 % (36.0-45.0); Hemoglobin 13.5 g/dL (12.0-15.0); Lymphocytes % 32.3 % (15.3-44.8); MCH 30.5 pg (27.0-35.0); MCHC 33.8 g/dL (32.0-36.0); MCV 90.3 fL (80-100); MPV 9.8 fL (7.6-11.3); Monocytes % 7.7 % (3.3-12.3); Neutrophils % 53.9 % (41.7-73.7); Nucleated Red Blood Cells % 0.1 % (0-0); Platelets 191 thou/uL (152-406); RBC Red Blood Cell Count 4.43 M/uL (3.86-4.86); Red Cell Distribution Width 12.8 % (12.1-15.2)
[2024-07-20 06:45] LABS: Albumin 2.8 g/dL (3.4-5.0); Anion Gap 7.5 mEq/L (5.0-15.0); Magnesium 1.8 mg/dL (1.6-2.4); Potassium 3.5 mEq/L (3.5-5.1); Prealbumin 16.7 mg/dL (20-40)
--- NOTE | 2024-07-20 21:32 | PN ---
Date of Progress Note: 07/20/2024 Time Of Service: 1:45 p.m. Subjective: Ms. Munson is in a wheelchair, just finished a session of therapy. Some family members were in the room and had questions about where she should go after her discharge. She has made excel lent progress with her physical and occupational therapy and speech therapy and is at this point in v raffy good shape to be able to go home. However, family members are concerned that she may make poor d ecisions affecting her safety awareness, which could result in falls and injury, bones being broken o r operating stove safely or microwave or other such issues may crop if she goes home without supervis ion. A niece is coming into town with a plan of being with the patient on Wednesday, patient's discha rg day. There is a consideration of her moving in with other family members; however, facility with assisted living or memory care unit was discussed and suggested as perhaps the best and ideal soluti on for her as she has very little physical limitations and good enough cognitive functioning to be ab le to follow instructions, but this needs a little more on safety awareness. Objective: No fevers, chills, nausea, vomiting. No significant myalgias, arthralgias, rash, or othe r issues. Physical Examination: Vital Signs: Blood pressure 149/68, pulse 59, respiratory rate 18, temperature 97.5, oxygen saturati on 94%. Weight 213, height 5 feet 1 inch, BMI 40.3. General: Arpit is sitting in a chair. HEENT: She appears normocephalic, atraumatic. Sclerae anicteric. Oropharynx moist. Neck: Supple. Chest: Clear. Heart: Regular. Extremities: No significant clubbing, cyanosis, or edema. She is alert and oriented to person, plac e, situation. She follows commands appropriately. She is able to repeat the tongue twister, Waylon robert picked a [place] of pickled peppers, without difficulty. Laboratory Studies: White blood cell count 7.8, hemoglobin 13.5, platelets 191. Sodium 138, potassi um 3.5, chloride 108, carbon dioxide 26, BUN 21, creatinine 0.87, glucose ranged from 146 to 197, jeanine cium 9.2, magnesium 1.8, albumin 2.8, prealbumin 16.7. X-ray/imaging: No new x-rays or imaging. Medications: Have been reviewed and are unchanged. Progress Made With Physical And Occupational: With her occupational therapy today, she did not want to shower, but agreed to do it in the morning. She is independent with toilet and transferring and a mbulated from the bed to toilet with a wheelchair and back independently. She did upper body dressin g and was able to do so without any difficulty. She did training, 5 minutes session on an armed bike and was able to do that well. She overall is very motivated and happy to do work on strengthening h er extremities, so she may be discharged home safely. With physical therapy, she ambulated 600 feet with a rolling walker with supervision, requiring 1 rest breaks. Jkq-os-pvdyb transfers and stand-to -pivot transfers done with contact guard assistance. Bed mobility, contact guard assistance. With kash[place] de la o, she did need moderate verbal cues to understand organizational layout of her pill saha. She does not currently know which medication she takes nor the dosage or frequency. Therapist is hanh oglesby on that and to help improve use of her pill organizer. Assessment: Ms. Munson is an 84-year-old patient in the rehabilitation unit with cardioembolic strok e, which is not producing significant weakness, but some ability to express her thoughts effectively and properly, although she has improved significantly there. She is mobilizing very well, ambulating 600 feet as noted with a rolling walker and supervision. Comorbidity of diabetes mellitus, improved control. She has good blood pressure control. She has Keppra. She does not have any seizures. adolfo has Lexapro for depression, Lovenox for DVT prophylaxis, and metformin for diabetes along with the Semglee insulin. Plan: 1.She will continue with physical, occupational, and speech therapy. 2.Continue with aggressive management of diabetes and hypertension. Continue with Lovenox for DVT p rophylaxis, Keppra for decreased risk of seizures, Norvasc for hypertension, Lovenox for DVT prophyla xis. The family is interested in her being in a facility where safety is on priority. This was disc ussed. An attempt will be made to see if she qualifies for [facility]ci that she may not as she i s ambulating very well, following instructions well. Perhaps best facility is an assisted living fac ility, perhaps with memory care unit option that will be looked into. Currently, the plan is for dis charge on Wednesday with the patient's niece coming to be with her at least for a few days prior to ch tiffanie of plan if possible. FREEMAN/JIN Voice ID: [id number] Report ID: [id number]
--- NOTE | 2024-07-21 13:32 | P.RH.PN ---
Estimated Length of Stay: 10 Expected Discharge Date: 07/27/24 Discharge Disposition Plan: Home Family Support: Yes Residential Goal: Mobility, Transfers, Self Care Vital Signs: Last Vital Signs Temp 97.9 F 07/21/24 07:33 Pulse 63 07/21/24 07:51 Resp 15 07/21/24 07:33 BP 131/65 07/21/24 07:51 Pulse Ox 94 07/21/24 07:33 Laboratory: Laboratory Last Values WBC 7.80 thou/uL (4.3-10.9) 07/20/24 05:24 RBC 4.43 M/uL (3.86-4.86) 07/20/24 05:24 Hgb 13.5 g/dL (12.0-15.0) 07/20/24 05:24 Hct 39.9 % (36.0-45.0) 07/20/24 05:24 MCV 90.3 fL (80-100) 07/20/24 05:24 MCH 30.5 pg (27.0-35.0) 07/20/24 05:24 MCHC 33.8 g/dL (32.0-36.0) 07/20/24 05:24 RDW 12.8 % (12.1-15.2) 07/20/24 05:24 Plt Count 191 thou/uL (152-406) 07/20/24 05:24 MPV 9.8 fL (7.6-11.3) 07/20/24 05:24 Neutrophils % 53.9 % (41.7-73.7) 07/20/24 05:24 Lymphocytes % 32.3 % (15.3-44.8) 07/20/24 05:24 Monocytes % 7.7 % (3.3-12.3) 07/20/24 05:24 Eosinophils % 5.1 % (0-4.4) H 07/20/24 05:24 Basophils % 1.0 % (0-1.3) 07/20/24 05:24 Absolute Neutrophils 4.2 K/uL (1.8-8.0) 07/20/24 05:24 Absolute Lymphocytes 2.5 K/uL (0.7-4.9) 07/20/24 05:24 Absolute Monocytes 0.6 K/uL (0.1-1.3) 07/20/24 05:24 Absolute Eosinophils 0.4 K/uL (0-0.5) 07/20/24 05:24 Absolute Basophils 0.1 K/uL (0-0.5) 07/20/24 05:24 Sodium 138 mEq/L (136-145) 07/20/24 05:24 Potassium 3.5 mEq/L (3.5-5.1) 07/20/24 05:24 Chloride 108 mEq/L (98-107) H 07/20/24 05:24 Carbon Dioxide 26 mEq/L (21-32) 07/20/24 05:24 Anion Gap 7.5 mEq/L (5.0-15.0) 07/20/24 05:24 BUN 21 mg/dL (7-18) H 07/20/24 05:24 Creatinine 0.87 mg/dL (0.55-1.02) 07/20/24 05:24 Est GFR (CKD-EPI) 65 ml/min (=/>90) L 07/20/24 05:24 Glucose 164 mg/dL (74-106) H 07/20/24 05:24 POC Glucose 131 mg/dL (65-120) H 07/21/24 11:58 Hemoglobin A1c 9.0 % (4.2-6.3) H 07/15/24 04:51 Calcium 9.2 mg/dL (8.5-10.1) 07/20/24 05:24 Magnesium 1.8 mg/dL (1.6-2.4) 07/20/24 05:24 Albumin 2.8 g/dL (3.4-5.0) L 07/20/24 05:24 Prealbumin 16.7 mg/dL (20-40) L 07/20/24 05:24 Urine Color Light-yellow (Yellow) 07/14/24 16:15 Urine Clarity Clear (Clear) 07/14/24 16:15 Urine pH 5.0 (5.0-7.0) 07/14/24 16:15 Ur Specific [place] 1.023 (1.005-1.030) 07/14/24 16:15 Glucose (UA)(Auto) 4+ (over) (Negative) H 07/14/24 16:15 Urine Ketones Negative (Negative) 07/14/24 16:15 Urine Blood Negative (Negative) 07/14/24 16:15 Urine Nitrite Negative (Negative) 07/14/24 16:15 Urine Bilirubin Negative (Negative) 07/14/24 16:15 Urine Urobilinogen Normal (Normal) 07/14/24 16:15 Ur Leukocyte Esterase 25 Inna/uL (Negative) H 07/14/24 16:15 Urine RBC <5 /HPF (None Seen) 07/14/24 16:15 Urine WBC 5-10 /HPF (<5) 07/14/24 16:15 Ur Squamous Epith Cells <5 /HPF (None Seen) 07/14/24 16:15 U Non-Squamous Epi Cells <5 /HPF (None Seen) 07/14/24 16:15 Urine Bacteria None seen /HPF (<20) 07/14/24 16:15 Hyaline Casts 0-5 /LPF (None Seen) 07/14/24 16:15 Urine Mucus Slight /HPF (None Seen) 07/14/24 16:15 Urine Culture Reflexed Not needed 07/14/24 16:15 Urine Total Protein Negative (Negative) 07/14/24 16:15 Weight: 213 lb 8 oz Wound Present: No Closed Surgical Incision Present: No Negative Pressure Wound Therapy Present: No Physician Update: She has mixed aphasia with mod assist. Difficulty with planning and problem solving to take medication. Met 4/5 STG and today is independent with transfers, 500' with and without walker or cane. Up and down 20 steps. Labs reviewed and are stable. Summary: Patient's care plan and [facility] goals have been reviewed and revised as necessary. Please see the Rehabilitation Signature page for all necessary signatures.
[2024-07-21 16:19] VITALS: BMI 40.0
[2024-07-21 19:15] VITALS: TEMP 97.4
[2024-07-22 06:48] VITALS: BP 141/67
== END 2024-07-22 11:00 | disposition home health service (06) | DRG 56 ==
LOC: 5TH 14:00
PROVIDERS: ADMIT Psychiatry & Neurology Neurology with Special Qualifications in Child Neurology; ATTEND Psychiatry & Neurology Neurology with Special Qualifications in Child Neurology
DX: I69.320 Aphasia following cerebral infarction (principal); I21.4 Non-ST elevation (NSTEMI) myocardial infarction; E11.9 Type 2 diabetes mellitus without complications; E78.5 Hyperlipidemia, unspecified; F03.90 Unspecified dementia, unspecified severity, without behavioral disturbance, psychotic disturbance, mood disturbance, and anxiety; Z79.4 Long term (current) use of insulin; I50.9 Heart failure, unspecified; I11.0 Hypertensive heart disease with heart failure; G47.00 Insomnia, unspecified; F32.A Depression, unspecified; F41.9 Anxiety disorder, unspecified
CPT/HCPCS: 36415; 71045; 80048; 81001; 82040; 82947; 83036; 83735; 84134; 85025; 87086; 87088; 92507; 92523; 97110; 97112; 97116; 97161; 97165; 97530; 97542; J1650

== ENCOUNTER 2024-12-08 10:01 | Observation (INO) | payer MEDICARE, OTHER ==
[2024-12-08] MEDS ORDERED: ASPIRIN 81 MG CHEWABLE TABLET ONE (10:28)
[2024-12-08] MEDS ORDERED: HYDROCODONE/APAP 10/325 TAB ONE (10:28)
[2024-12-08] MEDS ORDERED: ONDANSETRON 4 MG/2 ML VIAL ONE (10:46)
[2024-12-08 11:02] LABS: Absolute Basophils 0.1 K/uL (0-0.5); Absolute Eosinophils 0.5 K/uL (0-0.5); Absolute Lymphocytes (CBC) 1.9 K/uL (0.7-4.9); Absolute Monocytes 0.7 K/uL (0.1-1.3); Absolute Neutrophil 4.9 K/uL (1.8-8.0); Basophils % 0.9 % (0-1.3); Eosinophils % 5.9 % (0-4.4); Hemoglobin 13.1 g/dL (12.0-15.0); Lymphocytes % 23.8 % (15.3-44.8); MCH 30.5 pg (27.0-35.0); MCHC 34.6 g/dL (32.0-36.0); MCV 88.2 fL (80-100); MPV 9.2 fL (7.6-11.3); Neutrophils % 60.4 % (41.7-73.7); Platelets 197 thou/uL (152-406); Red Cell Distribution Width 13.4 % (12.1-15.2)
[2024-12-08 11:14] LABS: ALT/SGPT 15 U/L (13-56); AST/SGOT 15 U/L (15-37); Albumin 3.2 g/dL (3.4-5.0); Albumin/Globulin Ratio 0.8 (1.1-1.8); Alkaline Phosphatase 93 U/L (45-117); Anion Gap 13.2 mEq/L (5.0-15.0); BUN Blood Urea Nitrogen 30 mg/dL (7-18); Bicarbonate 25 mEq/L (21-32); Bilirubin Total 0.3 mg/dL (0.2-1.0); Globulin 4.1 g/dL (2.3-3.5); Glomerular Filtration Rate 42 ml/min (=/>90); Glucose Level 305 mg/dL (74-106); Potassium 4.2 mEq/L (3.5-5.1); Protein, Total 7.3 g/dL (6.4-8.2); Sodium Level 138 mEq/L (136-145)
[2024-12-08 11:25] LABS: Bilirubin Direct < 0.2 mg/dL (0-0.2); Bilirubin Indirect, Calculated 0.1 mg/dL (0.2-0.8)
[2024-12-08 11:26] LABS: Troponin High Sensitivity 1302.4 pg/mL (<58.9)
--- NOTE | 2024-12-08 11:36 | RAD REPORT ---
EXAMINATION: ONE VIEW CHEST XR CLINICAL INDICATION: Female, 84 years old.,CHEST PAIN TECHNIQUE: Frontal chest projection is submitted. Examination is limited by patient positioning and t echnique. COMPARISON: 07/15/2024 FINDINGS: The lungs are well inflated and clear apart from streaky bibasilar atelectasis. Stable mild central i nterstitial prominence. No pneumothorax or sizable effusion. The heart is normal in size. Mediastinal contours are unremarkable. IMPRESSION: Stable findings as above.
--- NOTE | 2024-12-08 11:36 | RAD REPORT ---
EXAMINATION: XR LEFT SHOULDER CLINICAL INDICATION: Female, 84 years old. PAIN TECHNIQUE: Internal and external AP view radiograph of the left shoulder were obtained. COMPARISON: No prior exam. FINDINGS: No evidence of fracture or dislocation. Normal alignment. Up to moderate AC joint and gleno humeral joint degenerative changes. Soft tissues are unremarkable. IMPRESSION: No acute osseous abnormalities. Degenerative changes as above.
--- NOTE | 2024-12-08 12:01 | ER ---
Nurse's Notes [facility] Name: Ana Munson Age: 84 yrs Sex: Female : 1940 Arrival Date: 12/08/2024 Time: 10:01 Bed 2 Private MD: Diagnosis: Subsequent non-ST elevation (NSTEMI) myocardial infarction Presentation: 12/08 10:07 Chief complaint: EMS states: L arm pain radiating to chest after caregiver pulled on ph her L arm to get her out of the car, was at follow-up appointment at [facility] who said her stress test was normal, 12 lead NSR, VSS. Coronavirus screen: Vaccine status: Patient reports receiving the 1st dose of the Covid vaccine. Ebola Screen: No symptoms or risks identified at this time. Initial Sepsis Screen: Does the patient meet any 2 criteria? No. Patient's initial sepsis screen is negative. Does the patient have a suspected source of infection? No. Patient's initial sepsis screen is negative. Risk Assessment: Do you want to hurt yourself or someone else? Patient reports no desire to harm self or others. Onset of symptoms was December 08, 2024. 10:07 Method Of Arrival: EMS: [facility] ph 10:07 Acuity: JOHNNY 3 ph Historical: - Allergies: 10:10 Sulfa (Sulfonamide Antibiotics); ph 10:10 Codeine; ph 10:10 erythromycin; ph 10:10 Azithromycin; ph 10:10 VENLAFAXINE; ph - PMHx: 10:10 Anxiety; Depression; DM; HTN; ph - PSHx: 10:10 hysterectomy; Right scientology biopsy; ph - Immunization history:: Adult Immunizations unknown. - Infectious Disease History:: Denies. - Family history:: not pertinent. - Social history:: Smoking status: Patient denies any tobacco usage or history of. Screenin:53 [facility] ED Fall Risk Assessment (Adult) History of falling in the last 3 months, ph including since admission No falls in past 3 months (0 pts) Confusion or Disorientation No (0 pts) Intoxicated or Sedated No (0 pts) Impaired Gait No (0 pts) Mobility Assist Device Used No (0 pt) Altered Elimination No (0 pt) Score/Fall Risk Level 0 - 2 = Low Risk Oriented to surroundings, Maintained a safe environment, Hourly rounding (assess needs \T\ fall precautionary measures) done, Used ambulatory aids as needed (educated on \T\ assisted with). Abuse screen: Denies threats or abuse. Denies injuries from another. Nutritional screening: No deficits noted. Tuberculosis screening: No symptoms or risk factors identified. Assessment: 10:53 General: Appears in no apparent distress. Behavior is calm, cooperative. Pain: ph Complains of pain in chest and left arm Pain began suddenly. Neuro: Level of Consciousness is awake, alert, obeys commands, Oriented to person, place, time, situation. Cardiovascular: Reports chest pain, Rhythm is sinus rhythm. Respiratory: Airway is patent Respiratory effort is even, unlabored. GI: Reports nausea. Derm: Skin is pink, warm \T\ dry. 13:00 Reassessment: Patient appears in no apparent distress at this time. Patient and/or ph family updated on plan of care and expected duration. Pain level reassessed. Patient is alert, oriented x 3, equal unlabored respirations, skin warm/dry/pink. 14:00 Reassessment: K [employer]. bp Vital Signs: 10:07 BP 174 / 70; Pulse 65; Resp 18; Temp 97.8; Pulse Ox 97% on R/A; Weight 112.49 kg; ph Height 5 ft. 2 in. ; 11:30 BP 189 / 92; Pulse 68; Resp 18; Pulse Ox 95% on R/A; ph 12:36 BP 173 / 94; Pulse 71; Resp 18; Pulse Ox 95% on R/A; ph 13:19 BP 166 / 82; Pulse 74; Resp 18; Pulse Ox 95% on R/A; ph 14:01 BP 144 / 68; Pulse 71; Resp 15; Pulse Ox 92% ; bp 10:07 Body Mass Index 45.36 (112.49 kg, 157.48 cm) ph ED Course: 10:07 Patient arrived in ED. ph 10:08 Yuri Ballard MD is Attending Physician. rt 10:10 Triage completed. ph 10:11 Arm band placed on Patient placed in an exam room, on a stretcher, on pulse oximetry. ph 10:22 Ursula Leblanc, RN is Primary Nurse. ph 10:37 XRAY Chest (1 view) In Process Unspecified. EDMS 10:37 Shoulder Left (2 View) XRAY In Process Unspecified. EDMS 10:53 Initial lab(s) drawn, by me, sent to lab. EKG done, by ED staff, reviewed by Yuri Ballard MD. Inserted saline lock: 20 gauge in right forearm, using aseptic technique. Blood collected. Flushed with 10 mL NS. Patient maintains SpO2 saturation greater than 95% on room air. 10:54 Patient has correct armband on for positive identification. Placed in gown. Bed in low ph position. Call light in reach. Side rails up X2. Client placed on continuous cardiac and pulse oximetry monitoring. NIBP monitoring applied. cardiac monitor technician on. Door closed. Noise minimized. Warm blanket given. 12:00 Lily Haji MD is Hospitalizing Provider. rt 14:01 No provider procedures requiring assistance completed. Patient admitted, IV remains in bp place. Administered Medications: 10:55 Drug: Aspirin PO Chewable Tablet 324 mg PO once; 81 mg tablets x 4 Route: PO; ph 12:37 Follow up: Response: No adverse reaction ph 10:55 Drug: [place] PO 10 mg-325 mg 1 tabs PO once Route: PO; ph 12:37 Follow up: Response: No adverse reaction ph 10:55 Drug: Ondansetron IVP 4 mg IVP once; over 2 minutes Route: IVP; Site: right forearm; ph 12:37 Follow up: Response: No adverse reaction ph Medication: 10:54 VIS not applicable for this client. ph Outcome: 12:00 Decision to Hospitalize by Provider. rt 14:01 Admitted to Helper/Driver accompanied by nurse, bp 14:01 Condition: stable 14:01 Instructed on the need for admit, 14:11 Patient left the ED. bp Signatures: Dispatcher [employer] EDCA Ursula Leblanc, RN RN ph Ren Salas, RN RN Yuri Darden MD MD rt
--- NOTE | 2024-12-08 12:01 | EDPHYS ---
Physician Documentation [facility] Name: Ana Munson Age: 84 yrs Sex: Female : 1940 Arrival Date: 12/08/2024 Time: 10:01 Bed 2 Private MD: ED Physician Yuri Ballard HPI: 12/08 12:36 This 84 yrs old Female presents to ER via EMS with complaints of Chest Pain, Arm Pain. rt 12:36 Patient presents to the ED with left shoulder, chest pain. Patient states that this rt started after she was helped into a vehicle and some force was applied to her arm. She states that she has been having this intermittent chest pain for a few days now. Denies other acute complaints at this time, symptoms are moderate in severity, no other aggravating or alleviating factors.. Historical: - Allergies: 10:10 Sulfa (Sulfonamide Antibiotics); ph 10:10 Codeine; ph 10:10 erythromycin; ph 10:10 Azithromycin; ph 10:10 VENLAFAXINE; ph - PMHx: 10:10 Anxiety; Depression; DM; HTN; ph - PSHx: 10:10 hysterectomy; Right latter-day biopsy; ph - Immunization history:: Adult Immunizations unknown. - Infectious Disease History:: Denies. - Family history:: not pertinent. - Social history:: Smoking status: Patient denies any tobacco usage or history of. ROS: 12:36 Constitutional: Negative for fever, chills, and weight loss, Respiratory: Negative for rt shortness of breath, cough, wheezing, and pleuritic chest pain, Abdomen/GI: Negative for abdominal pain, nausea, vomiting, diarrhea, and constipation, Skin: Negative for injury, rash, and discoloration, Neuro: Negative for headache, weakness, numbness, tingling, and seizure, 12:36 Cardiovascular: Positive for chest pain, Negative for edema, 12:36 MS/extremity: Positive for pain, Negative for deformity, Exam: 12:36 Constitutional: This is a well developed, well nourished patient who is awake, alert, rt and in no acute distress. Head/Face: Normocephalic, atraumatic. Chest/axilla: Normal chest wall appearance and motion. Nontender with no deformity. No lesions are appreciated. Cardiovascular: Regular rate and rhythm with a normal S1 and S2. No gallops, murmurs, or rubs. Normal PMI, no JVD. No pulse deficits. Respiratory: Lungs have equal breath sounds bilaterally, clear to auscultation and percussion. No rales, rhonchi or wheezes noted. No increased work of breathing, no retractions or nasal flaring. Abdomen/GI: Soft, non-tender, with normal bowel sounds. No distension or tympany. No guarding or rebound. No evidence of tenderness throughout. Skin: Warm, dry with normal turgor. Normal color with no rashes, no lesions, and no evidence of cellulitis. MS/ Extremity: Pulses equal, no cyanosis. Neurovascular intact. Full, normal range of motion. Neuro: Awake and alert, GCS 15, oriented to person, place, time, and situation. Cranial nerves II-XII grossly intact. Motor strength 5/5 in all extremities. Sensory grossly intact. Cerebellar exam normal. Normal gait. 12:36 ECG was reviewed by the Attending Physician. Vital Signs: 10:07 BP 174 / 70; Pulse 65; Resp 18; Temp 97.8; Pulse Ox 97% on R/A; Weight 112.49 kg; ph Height 5 ft. 2 in. ; 11:30 BP 189 / 92; Pulse 68; Resp 18; Pulse Ox 95% on R/A; ph 12:36 BP 173 / 94; Pulse 71; Resp 18; Pulse Ox 95% on R/A; ph 13:19 BP 166 / 82; Pulse 74; Resp 18; Pulse Ox 95% on R/A; ph 14:01 BP 144 / 68; Pulse 71; Resp 15; Pulse Ox 92% ; bp 10:07 Body Mass Index 45.36 (112.49 kg, 157.48 cm) ph MDM: 10:08 Medical Screening Exam initiated rt 12:36 Differential diagnosis: abnormal EKG, acute myocardial infarction, coronary artery rt disease chest wall pain. HEART Score: History: Moderately Suspicious (1), ECG: Non specific repolarization disturbance / LBTB / PM (1), Age: > or = 65 years (2), Risk Factors: 1 or 2 risk factors (1), Troponin: > or = 3 x Normal Limit (2), Total Score = 7. The patient was given aspirin in the Emergency Department. Data reviewed: vital signs, nurses notes, lab test result(s), EKG, radiologic studies. Consideration of Admission/Observation Patient was admitted/placed on observation. Management of patient was discussed with the following: Cloth Shrinking Tester: Discussed with Dr. Gray, recommends holding heparin, Lovenox, will likely cath this afternoon.. Independent interpretation of the following test(s) in the Emergency Department X-Ray: My interpretation is No infiltrate seen on interpretation of x-ray images. Test considered but Not performed: CT: Low suspicion for PE, CT angiogram not indicated. Counseling: I had a detailed discussion with the patient and/or guardian regarding the historical points, exam findings, and any diagnostic results supporting the discharge/admit diagnosis, lab results, radiology results, the need for further work-up and treatment in the hospital. Response to treatment: the patient's symptoms have markedly improved after treatment. 12/08 10:16 Order name: Basic Metabolic Panel; Complete Time: 11:27 rt 12/08 10:16 Order name: CBC with Diff; Complete Time: 11:27 rt 12/08 10:16 Order name: LFT's; Complete Time: 11:27 rt 12/08 10:16 Order name: Troponin HS; Complete Time: 11:27 rt 12/08 12:54 Order name: Basic Metabolic Panel EDMS 12/08 12:54 Order name: Basic Metabolic Panel EDMS 12/08 12:54 Order name: Basic Metabolic Panel EDMS 12/08 12:54 Order name: Basic Metabolic Panel EDMS 12/08 12:54 Order name: CBC with Automated Diff EDMS 12/08 12:54 Order name: CBC with Automated Diff EDMS 12/08 12:54 Order name: CBC with Automated Diff EDMS 12/08 12:54 Order name: CBC with Automated Diff EDMS 12/08 12:54 Order name: Lipid Profile EDMS 12/08 12:54 Order name: Lipid Profile EDMS 12/08 12:54 Order name: Magnesium EDMS 12/08 12:54 Order name: Magnesium EDMS 12/08 12:54 Order name: Magnesium EDMS 12/08 12:54 Order name: Magnesium EDMS 12/08 12:54 Order name: Phosphorus EDMS 12/08 12:54 Order name: Phosphorus EDMS 12/08 12:54 Order name: Phosphorus EDMS 12/08 12:54 Order name: Phosphorus EDMS 12/08 12:54 Order name: T4 Free EDMS 12/08 12:54 Order name: T4 Free EDMS 12/08 12:54 Order name: Thyroid Stimulating Hormone EDMS 12/08 12:54 Order name: Thyroid Stimulating Hormone EDMS 12/08 12:54 Order name: Troponin High Sensitivity EDMS 12/08 12:54 Order name: Troponin High Sensitivity EDMS 12/08 12:54 Order name: Troponin High Sensitivity EDMS 12/08 13:21 Order name: Protime (+inr) bp 12/08 13:21 Order name: Ptt, Activated bp 12/08 10:16 Order name: XRAY Chest (1 view); Complete Time: 11:37 rt 12/08 10:16 Order name: Shoulder Left (2 View) XRAY; Complete Time: 11:37 rt 12/08 12:54 Order name: Echo with Doppler EDAL 12/08 10:16 Order name: EKG; Complete Time: 10:17 rt 12/08 10:16 Order name: Cardiac monitoring; Complete Time: 10:55 rt 12/08 10:16 Order name: EKG - Nurse/Tech; Complete Time: 10:55 rt 12/08 10:16 Order name: IV Saline Lock; Complete Time: 10:55 rt 12/08 10:16 Order name: Labs collected and sent; Complete Time: 10:55 rt 12/08 10:16 Order name: O2 Per Protocol; Complete Time: 10:55 rt 12/08 10:16 Order name: O2 Sat Monitoring; Complete Time: 10:55 rt 12/08 13:42 Order name: Labs - recollect needed: BLUE TOP; Complete Time: 13:58 jl7 EC:36 Rate is 70 beats/min. Rhythm is regular, 1st Degree Block with No ectopy. Left axis rt deviation noted. DE interval is prolonged at 242 msec. QRS interval is normal. QT interval is normal. No Q waves. No ST changes noted. Interpreted by me. Administered Medications: 10:55 Drug: Aspirin PO Chewable Tablet 324 mg PO once; 81 mg tablets x 4 Route: PO; ph 12:37 Follow up: Response: No adverse reaction ph 10:55 Drug: [place] PO 10 mg-325 mg 1 tabs PO once Route: PO; ph 12:37 Follow up: Response: No adverse reaction ph 10:55 Drug: Ondansetron IVP 4 mg IVP once; over 2 minutes Route: IVP; Site: right forearm; ph 12:37 Follow up: Response: No adverse reaction ph Disposition: 12:36 Critical Care:. rt Disposition Summary: 12/08/24 12:00 Hospitalization Ordered Notes: Hospitalization Status: Inpatient Admission rt Provider: Lily Haji rt Location: Telemetry/[facility]Sur (Inpatient) rt Condition: Fair rt Problem: new rt Symptoms: have improved rt Bed/Room Type: Standard rt Room Assignment: rt Diagnosis - Subsequent non-ST elevation (NSTEMI) myocardial infarction rt Forms: - Medication Reconciliation Form rt - SBAR form rt - Leadership Thank You Letter rt Critical care time excluding procedures: 12:36 Critical care time: Bedside Care: 30 minutes, Consultation: 5 minutes. Total time: 35 rt minutes Signatures: Dispatcher [employer] Ursula Cross RN RN Jane Haywood RN RN best7 Yuri Ballard MD MD rt
[2024-12-08] MEDS ORDERED: ACETAMINOPHEN 325 MG TABLET PO PRN (12:45)
[2024-12-08] MEDS ORDERED: GLUCAGON 1 MG/VIAL IM PRN (13:09)
[2024-12-08] MEDS ORDERED: D10W 125 ML IV PRN (13:09)
[2024-12-08] MEDS ORDERED: HEPARIN/D5W 25,000 UNIT/500 ML BAG IV ONE (13:13)
[2024-12-08] MEDS: HEPARIN/D5W 25,000 UNIT/500 ML BAG IV SCH (13:15)
--- NOTE | 2024-12-08 13:37 | P.HP ---
Certification for Inpatient Patient admitted to: Observation With expected LOS: <2 Midnights Practitioner: I am a practitioner with admitting privileges, knowledge of patient current condition, hospital course, and medical plan of care. Services: Services provided to patient in accordance with Admission requirements found in Title 42 Section 412.3 of the Code of Federal Regulations Patient History Date of Service: 12/08/24 Reason for admission: NSTEMI History of Present Illness: Ana Munson is an 84 year old female with pmhx Anxiety; Depression; DM; HTN who presents to the ED with intermittent chest pain. She reports having a stress test a week ago that resulted clear. Today, she was pulling on her caregivers hand to help her stand up when her midsternal chest pain started and radiated to the left shoulder and left arm. She reports having light chest pain a few days ago but didn't think anything about it. Laboratory evaluation significant for a BUN/creatinine 30/1.26, GFR 42, serum glucose 305, troponin 1302.4. Chest xray reports "The lungs are well inflated and clear apart from streaky bibasilar atelectasis. Stable mild central interstitial prominence. No pne umothorax or sizable effusion. The heart is normal in size. Mediastinal contours are unremarkable" Left shoulder x-ray report "No acute osseous abnormalities. Degenerative changes as above." Ana will be admitted to hospitalist service for further evaluation of NSTEMI, Dr. Gray consulted. Allergies azithromycin Allergy (Verified 07/08/24 21:11) unknown codeine Allergy (Verified 07/08/24 21:11) unknown erythromycin base Allergy (Verified 07/08/24 21:11) Nausea/Vomiting Sulfa (Sulfonamide Antibiotics) Allergy (Verified 07/08/24 21:11) unknown venlafaxine Allergy (Verified 07/08/24 21:11) unknown Home Medications: Amlodipine [Norvasc*] 1 tab PO DAILY 10/20/21 Escitalopram [Lexapro*] 1 tab PO DAILY 10/20/21 Metoprolol Succinate [Toprol Xl*] 1 tab PO DAILY 10/20/21 Temazepam [Restoril*] 1 tab PO PRN 10/20/21 Rosuvastatin [Crestor*] 40 mg PO BEDTIME 30 Days #30 tab 07/14/24 levETIRAcetam [Keppra*] 500 mg PO BID 30 Days #60 tab 07/14/24 Insulin Glargine,Hum.rec.anlog [Semglee] 20 unit SQ BID #10 ml 07/21/24 Metformin HCl [Glucophage*] 850 mg PO BIDWM #60 tab 07/21/24 - Past Medical/Surgical History Diabetic: Yes -: Anxiety/depression -: Dementia -: HTN -: DMT2 on insulin -: HDL -: Hysterectomy -: Right temporal biopsy - Family History Mother -: Other (see notes) - Social History Smoking Status: Never smoker Alcohol use: No CD- Drugs: No Caffeine use: Yes Review of Systems Other: Per HPI Physical Examination - Physical Exam General: Alert, In no apparent distress, Oriented x3 HEENT: Atraumatic, Normocephalic, PERRLA Neck: Supple, 2+ carotid pulse no bruit Respiratory: Clear to auscultation bilaterally, Normal air movement Cardiovascular: Normal pulses, Regular rate/rhythm, Normal S1 S2 Capillary refill: <2 Seconds Gastrointestinal: Normal bowel sounds, Soft and benign Musculoskeletal: No clubbing Integumentary: No rashes Neurological: Normal speech, Normal tone - Studies Laboratory Data (last 24 hrs) 12/08/24 12/08/24 10:40 10:40 WBC 8.10 Hgb 13.1 Hct 38.0 Plt Count 197 Sodium 138 Potassium 4.2 BUN 30 H Creatinine 1.26 H Glucose 305 H Total Bilirubin 0.3 AST 15 ALT 15 Alkaline Phosphatase 93 Assessment and Plan - Plan Assessment and plan NSTEMI - Cardiology consulted -EKG with no obvious ST segment changes -Continuous telemetry -Trend troponin -Echocardiogram result pending -Chest x-ray with no acute findings - Heparin drip ordered coagulation labs drawn - N.p.o., left heart cath today -Lipid panel, TSH, A1c in the a.m. - Aspirin Lipitor daily FANTA -BUN/creatinine 30/1.26, GFR 42 - Gentle IV fluids Diabetes mellitus - Accu-Chek with sliding scale insulin - Serum glucose 305 Anxiety Depression HTN -Continue home medication as appropriate DVT PPx heparin drip DNR LOS 24-hour OBS Discharge Plan: Home Plan to discharge in: 24 Hours - Advance Directives Does patient have a Living Will: No Does patient have a Durable POA for Healthcare: No
--- NOTE | 2024-12-08 14:13 | P.CNS ---
Date of Consult: 12/08/24 Chief Complaint: NSTEMI History of Present Illness: Patient with PMH of HTN, DM, Morbid obesity presented with acute sudden onset chest pain and left arm pain while she was doing some exertion, denies any other cardiac symptoms. Allergies azithromycin Allergy (Verified 07/08/24 21:11) unknown codeine Allergy (Verified 07/08/24 21:11) unknown erythromycin base Allergy (Verified 07/08/24 21:11) Nausea/Vomiting Sulfa (Sulfonamide Antibiotics) Allergy (Verified 07/08/24 21:11) unknown venlafaxine Allergy (Verified 07/08/24 21:11) unknown Home medications list reviewed: Yes Home Medications: Amlodipine [Norvasc*] 1 tab PO DAILY 10/20/21 Escitalopram [Lexapro*] 1 tab PO DAILY 10/20/21 Metoprolol Succinate [Toprol Xl*] 1 tab PO DAILY 10/20/21 Temazepam [Restoril*] 1 tab PO PRN 10/20/21 Rosuvastatin [Crestor*] 40 mg PO BEDTIME 30 Days #30 tab 07/14/24 levETIRAcetam [Keppra*] 500 mg PO BID 30 Days #60 tab 07/14/24 Insulin Glargine,Hum.rec.anlog [Semglee] 20 unit SQ BID #10 ml 07/21/24 Metformin HCl [Glucophage*] 850 mg PO BIDWM #60 tab 07/21/24 - Past Medical/Surgical History Diabetic: Yes -: Anxiety/depression -: Dementia -: HTN -: DMT2 on insulin -: HDL -: Hysterectomy -: Right temporal biopsy - Family History Mother Medical History: Other (see notes) - Social History Smoking Status: Unknown if ever smoked Alcohol use: No CD- Drugs: No Caffeine use: Yes Review of Systems 10-point ROS is otherwise unremarkable Physical Examination General: Alert, In no apparent distress HEENT: Atraumatic, PERRLA, Mucous membr. moist/pink, EOMI, Sclerae nonicteric Neck: Supple, 2+ carotid pulse no bruit, No LAD, Without JVD or thyroid abnormality Respiratory: Clear to auscultation bilaterally, Normal air movement Cardiovascular: Regular rate/rhythm, Normal S1 S2 Gastrointestinal: Normal bowel sounds, No tenderness Musculoskeletal: No tenderness Integumentary: No rashes Neurological: Normal gait, Normal speech, Normal tone, Normal affect Lymphatics: No axilla or inguinal lymphadenopathy Laboratory Data (last 24 hrs) 12/08/24 12/08/24 10:40 10:40 WBC 8.10 Hgb 13.1 Hct 38.0 Plt Count 197 Sodium 138 Potassium 4.2 BUN 30 H Creatinine 1.26 H Glucose 305 H Total Bilirubin 0.3 AST 15 ALT 15 Alkaline Phosphatase 93 - Problems (1) Dyslipidemia (high LDL; low HDL) Current Visit: No Status: Acute Plan: Lipitor 40 mg daily (2) Hypertension Current Visit: No Status: Acute Plan: reconcile and resume home BP medications continue to monitor (3) NSTEMI (non-ST elevated myocardial infarction) Current Visit: No Status: Acute Plan: NPO for coronary angiogram ASA 81 mg daily Lipitor 40 mg daily
[2024-12-08] MEDS ORDERED: HEPA 1000U/500MLS 2,000 UNIT/1,000 ML BAG IV ONE (14:40)
[2024-12-08] MEDS ORDERED: HEPARIN 10,000 UNIT/10 ML VIAL IV ONE (14:40)
[2024-12-08] MEDS ORDERED: MIDAZOLAM HCL 2 MG/2 ML INJ ONE (14:40)
[2024-12-08] MEDS ORDERED: LIDOCAINE 1% 20 ML MDV ONE (14:40)
[2024-12-08] MEDS ORDERED: ASPIRIN 325 MG TAB ONE (14:41)
[2024-12-08] MEDS ORDERED: FENTANYL CITR 100 MCG/2 ML ONE (14:41)
[2024-12-08] MEDS ORDERED: CLOPIDOGREL 75 MG TABLET ONE (14:41)
[2024-12-08] MEDS ORDERED: TICAGRELOR 90 MG TABLET PO ONE (14:41)
[2024-12-08] MEDS ORDERED: ATROPINE SULF 1 MG/10 ML SYR IV ONE (14:41)
[2024-12-08] MEDS ORDERED: HEPARIN 5000 UNIT/ML 1 ML VIAL ONE (14:41)
[2024-12-08] MEDS ORDERED: FLUMAZENIL 0.1 MG/ML (5 mL VIAL) IV ONE (14:42)
[2024-12-08] MEDS ORDERED: NALOXONE 0.4 MG/ML VIAL ONE (14:42)
[2024-12-08] MEDS ORDERED: NA CHLORIDE 0.9% 500 ML ONE (15:00)
[2024-12-08 16:19] LABS: PT Prothrombin Time 11.8
[2024-12-08] MEDS: INSULIN REGULAR (HUMAN) 100 UNIT/ML SQ SCH (16:30)
[2024-12-08] MEDS: CLOPIDOGREL 75 MG TABLET PO ONE (17:50)
[2024-12-08 18:36] VITALS: O2SAT 96
[2024-12-08 19:48] VITALS: BMI 41.7
[2024-12-08] MEDS: NA CHLORIDE 0.9% 1,000 ML IV SCH (21:49)
--- NOTE | 2024-12-08 23:50 | OP ---
Date of Procedure: 12/08/2024 Surgeon: Maksim Gray Procedure Performed: Selective coronary angiogram. Indication For Procedure: [id number] MA. Complications: None. Estimated Blood Loss: Less than 50 cc. Access: Right radial, closed by TR band. Sedation Time: 20 minutes with 1 of Versed and 25 of fentanyl. Description Of Procedure: After risks, benefits, and alternatives were explained to the patient, the patient agreed to proceed with procedure and signed informed consent. The patient was brought to [facility] lab director, prepped and draped in sterile fashion. Time-out was performed. Sedation was administere d. Next, right radial access was obtained using ultrasound-guided micropuncture technique. [place] 4 catheter was advanced over J-wire to the aortic root. Selective angiogram was done using same cathet er. At the end of procedure, catheter was removed over a J-wire. Sheath was removed. TR band appli ed and hemostasis was achieved. The patient was moved back to recovery in stable condition. Findings: 1. Left main, normal. 2. LAD, diffuse mild luminal irregularities. 3. Left circ; ostial 60% disease, then mild luminal irregularities. 4. RCA normal. Assessment: Moderate ostial left circ disease. Plan: 1. Aspirin 81 mg daily for life. 2. Plavix 300 mg x1, then continue Plavix 75 mg daily for 12 months. 3. Continue aggressive medical treatment for CAD. PAPA/JIN Voice ID: [id number] Report ID: [id number]
[2024-12-09] MEDS: CLOPIDOGREL 75 MG TABLET PO ONE (01:54)
[2024-12-09 06:18] LABS: Absolute Basophils 0.1 K/uL (0-0.5); Absolute Eosinophils 0.4 K/uL (0-0.5); Absolute Lymphocytes (CBC) 2.1 K/uL (0.7-4.9); Absolute Monocytes 0.5 K/uL (0.1-1.3); Absolute Neutrophil 4.4 K/uL (1.8-8.0); Eosinophils % 4.9 % (0-4.4); Hematocrit 39.6 % (36.0-45.0); Hemoglobin 13.6 g/dL (12.0-15.0); Lymphocytes % 27.9 % (15.3-44.8); MCH 30.3 pg (27.0-35.0); MCHC 34.4 g/dL (32.0-36.0); MCV 87.9 fL (80-100); Neutrophils % 59.2 % (41.7-73.7); Nucleated Red Blood Cells % 0.1 % (0-0); Platelets 216 thou/uL (152-406); RBC Red Blood Cell Count 4.51 M/uL (3.86-4.86); Red Cell Distribution Width 13.3 % (12.1-15.2)
[2024-12-09 06:45] LABS: Anion Gap 10.3 mEq/L (5.0-15.0); Phosphorus 3.1 mg/dL (2.5-4.9); Potassium 4.3 mEq/L (3.5-5.1); Thyroid Stimulating Hormone 2.19 uIU/mL (0.358-3.740)
[2024-12-09] MEDS: ASPIRIN EC 81 MG TAB PO SCH (08:09)
[2024-12-09] MEDS: CLOPIDOGREL 75 MG TABLET PO SCH (08:09)
[2024-12-09 12:03] VITALS: BP 146/63; TEMP 98.5
--- NOTE | 2024-12-09 19:25 | P.DS ---
Admission Date: 12/08/24 Discharge Date: 12/09/24 Disposition: ROUTINE DISCHARGE Discharge Condition: GOOD Reason for Admission: NSTEMI Brief History of Present Illness: Diagnosis NSTEMI FANTA Diabetes mellitus Anxiety Depression HTN HPI 12/08/2024 Ana Munson is an 84 year old female with pmhx Anxiety; Depression; DM; HTN who presents to the ED with intermittent chest pain. She reports having a stress test a week ago that resulted clear. Today, she was pulling on her caregivers hand to help her stand up when her midsternal chest pain started and radiated to the left shoulder and left arm. She reports having light chest pain a few days ago but didn't think anything about it. Laboratory evaluation significant for a BUN/creatinine 30/1.26, GFR 42, serum glucose 305, troponin 1302.4. Chest xray reports "The lungs are well inflated and clear apart from streaky bibasilar atelectasis. Stable mild central interstitial prominence. No pneumothorax or sizable effusion. The heart is normal in size. Mediastinal contours are unremarkable" Left shoulder x-ray report "No acute osseous abnormalities. Degenerative changes as above." Ana will be admitted to hospitalist service for further evaluation of NSTEMI, Dr. Gray consulted. Hospital Course: Patient is an 84-year-old female who was admitted to the hospital for chest pain. Patient had a cardiac catheterization and patient did not require any intervention. Patient was advised to get medical management. Patient does have atherosclerotic disease, and patient will be medically managed. Patient does have some musculoskeletal or neuropathy pain which I will treat with Lyrica and prednisone over the course of few days. Patient will follow-up with cardiology in 2 to 4 weeks as well as a primary care provider in 1 to 2 weeks. Patient lives at [facility] at independent living and patient is stable for discharge with outpatient follow-up. Patient can contact me at [phone] if any questions regarding her hospital stay. Physical Exam General: Alert and Oriented x3, NAD HEENT: Atraumatic, Normocephalic, PERRLA Neck: Supple, 2+ carotid pulse no bruit Respiratory: Clear to auscultation bilaterally, Normal air movement Cardiovascular: Normal pulses, Regular rate/rhythm, Normal S1 S2 Capillary refill: <2 Seconds Gastrointestinal: Normal bowel sounds, Soft and benign Musculoskeletal: No clubbing Integumentary: No rashes Neurological: Normal speech, Normal tone Vital Signs/Physical Exam: Temp Pulse Resp BP Pulse Ox 98.5 F 67 14 146/63 H 91 12/09/24 12:00 12/09/24 12:00 12/09/24 12:00 12/09/24 12:00 12/09/24 12:00 Laboratory Data at Discharge: WBC 7.40 thou/uL (4.3-10.9) 12/09/24 05:58 Hgb 13.6 g/dL (12.0-15.0) 12/09/24 05:58 Hct 39.6 % (36.0-45.0) 12/09/24 05:58 Plt Count 216 thou/uL (152-406) 12/09/24 05:58 PT 11.8 12/08/24 13:59 INR 1.00 12/08/24 13:59 APTT 37.1 SECONDS (27.2-37.4) 12/08/24 13:59 Sodium 139 mEq/L (136-145) 12/09/24 05:58 Potassium 4.3 mEq/L (3.5-5.1) 12/09/24 05:58 BUN 27 mg/dL (7-18) H 12/09/24 05:58 Creatinine 1.16 mg/dL (0.55-1.02) H 12/09/24 05:58 Glucose 205 mg/dL (74-106) H 12/09/24 05:58 Phosphorus 3.1 mg/dL (2.5-4.9) 12/09/24 05:58 Magnesium 2.0 mg/dL (1.6-2.4) 12/09/24 05:58 Total Bilirubin 0.3 mg/dL (0.2-1.0) 12/08/24 10:40 AST 15 U/L (15-37) 12/08/24 10:40 ALT 15 U/L (13-56) 12/08/24 10:40 Alkaline Phosphatase 93 U/L (45-117) 12/08/24 10:40 Triglycerides 166 mg/dL (<150) H 12/09/24 05:58 Cholesterol 166 mg/dL (<200) 12/09/24 05:58 HDL Cholesterol 35 mg/dL (40-60) L 12/09/24 05:58 Cholesterol/HDL Ratio 4.74 12/09/24 05:58 Home Medications: Amlodipine [Norvasc*] 1 tab PO DAILY 10/20/21 Escitalopram [Lexapro*] 1 tab PO DAILY 10/20/21 Metoprolol Succinate [Toprol Xl*] 1 tab PO DAILY 10/20/21 Temazepam [Restoril*] 1 tab PO PRN 10/20/21 levETIRAcetam [Keppra*] 500 mg PO BID 30 Days #60 tab 07/14/24 Metformin HCl [Glucophage*] 850 mg PO BIDWM #60 tab 07/21/24 Rosuvastatin [Crestor*] 10 mg PO BEDTIME 12/08/24 Aspirin [Aspirin EC 81 MG] 162 mg PO DAILY #60 tab 12/09/24 Clopidogrel Bisulfate [Plavix*] 75 mg PO DAILY #30 tab 12/09/24 Insulin Glargine,Hum.rec.anlog [Semglee] 40 unit SQ DAILY 12/09/24 Pregabalin [Lyrica] 75 mg PO DAILY #30 cap 12/09/24 predniSONE [Deltasone] 20 mg PO BID #11 tab 12/09/24 Aspirin [Aspirin EC 81 MG] 162 mg PO DAILY #60 tab 12/11/24 Aspirin [Aspirin EC 81 MG] 162 mg PO DAILY #60 tab 12/11/24 Clopidogrel Bisulfate [Plavix] 75 mg PO DAILY #30 tab 12/11/24 Clopidogrel Bisulfate [Plavix] 75 mg PO DAILY #30 tab 12/11/24 Pregabalin [Lyrica] 75 mg PO DAILY #30 cap 12/11/24 Pregabalin [Lyrica] 75 mg PO DAILY #30 cap 12/11/24 predniSONE [Deltasone] 20 mg PO BID #11 tab 12/11/24 predniSONE [Deltasone] 20 mg PO BID #11 tab 12/11/24 New Medications: Aspirin [Aspirin EC 81 MG] 162 mg PO DAILY #60 tab Aspirin [Aspirin EC 81 MG] 162 mg PO DAILY #60 tab Aspirin [Aspirin EC 81 MG] 162 mg PO DAILY #60 tab Pregabalin [Lyrica] 75 mg PO DAILY #30 cap Pregabalin [Lyrica] 75 mg PO DAILY #30 cap Pregabalin [Lyrica] 75 mg PO DAILY #30 cap Clopidogrel Bisulfate [Plavix*] 75 mg PO DAILY #30 tab Clopidogrel Bisulfate [Plavix] 75 mg PO DAILY #30 tab Clopidogrel Bisulfate [Plavix] 75 mg PO DAILY #30 tab predniSONE [Deltasone] 20 mg PO BID #11 tab predniSONE [Deltasone] 20 mg PO BID #11 tab predniSONE [Deltasone] 20 mg PO BID #11 tab Physician Discharge Instructions: PROBLEM: NSTEMI GOAL: Clear understanding of disease process INSTRUCTIONS: Diet: AHA Activity: Fall precautions -DC IV and DC home -Follow-up with PCP in 1 to 2 weeks -Follow-up with Cardiology in 1 to 2 weeks -Please call Dr. Haji at [phone] if any questions regarding hospital stay -Please call nursing station at [phone] if any nursing or medication questions -Return to the emergency room if symptoms worsen Diet: AHA Activity: Fall precautions Followup: Mike Heath DO [Primary Care Provider] -
--- NOTE | 2024-12-11 10:01 | ECHO ---
HEIGHT: 5 ft 2 in WEIGHT: 228 lb 0 oz DATE OF STUDY: 12/08/[address]: Kat Gu NP 2-DIMENSIONAL: YES M.MODE: YES DOPPLER: YES COLOR FLOW: YES TDS: NO PORTABLE: YES DEFINITY: NO BUBBLE STUDY: NO DIAGNOSIS: CHEST PAIN, NSTEMI, LEFT HEART CATH CARDIAC HISTORY: CATHERIZATION: NO SURGERY: NO PROSTHETIC VALVE: NO PACEMAKER: NO MEASUREMENTS (cm) DIASTOLIC (NORMALS) SYSTOLIC (NORMALS) IVSd 1.1 (0.6-1.2) LA Diam 2.8 (1.9-4.0) LVEF 60-65% LVIDd 3.2 (3.5-5.7) LVIDs 2.2 (2.0-3.5) %FS 31% LVPWd 1.2 (0.6-1.2) Ao Diam 2.6 (2.0-3.7) 2 DIMENSIONAL ASSESSMENT: RIGHT ATRIUM: NORMAL LEFT ATRIUM: NORMAL RIGHT VENTRICLE: NORMAL LEFT VENTRICLE: NORMAL TRICUSPID VALVE: MILD TRICUSPID REGURGITATION MITRAL VALVE: SEVERE MITRAL ANNULAR CALCIFICATION, MILD MITRAL REGURGITATION PULMONIC VALVE: NORMAL AORTIC VALVE: NORMAL PERICARDIAL EFFUSION: NONE AORTIC ROOT: NORMAL LEFT VENTRICULAR WALL MOTION: NORMAL. DOPPLER/COLOR FLOW: GRADE I DIASTOLIC DYSFUNCTION. COMMENTS: 1. NORMAL LEFT VENTRICULAR SYSTOLIC FUNCTION. LEFT VENTRICULAR EJECTION FRACTION 60-65%. NORMAL WALL MOTION. 2. GRADE I DIASTOLIC DYSFUNCTION. 3. NORMAL FILLING PRESSURE. RIGHT ATRIAL PRESSURE 0-5 mmHg. 4. MODERATE PULMONARY HYPERTENSION. RIGHT VENTRICULAR SYSTOLIC PRESSURE 50-55 mmHg. TECHNOLOGIST: JOLLY ESPARZA
== END 2024-12-09 14:41 | disposition home or self-care (01) ==
LOC: ER 10:01 → ERHOLD 12:45 → 4TH 18:26
PROVIDERS: ADMIT Internal Medicine; ATTEND Hospitalist
PROC: B2111ZZ Fluoroscopy of Multiple Coronary Arteries using Low Osmolar Contrast (ICD-10-PCS; principal; 2024-12-08)
DX: I21.4 Non-ST elevation (NSTEMI) myocardial infarction (principal); I25.10 Atherosclerotic heart disease of native coronary artery without angina pectoris; N17.9 Acute kidney failure, unspecified; E11.40 Type 2 diabetes mellitus with diabetic neuropathy, unspecified; I10 Essential (primary) hypertension; E78.5 Hyperlipidemia, unspecified; F03.90 Unspecified dementia, unspecified severity, without behavioral disturbance, psychotic disturbance, mood disturbance, and anxiety; F41.9 Anxiety disorder, unspecified; F32.A Depression, unspecified; E66.01 Morbid (severe) obesity due to excess calories; Z68.41 Body mass index [BMI] 40.0-44.9, adult; Z88.1 Allergy status to other antibiotic agents; Z88.2 Allergy status to sulfonamides; Z88.5 Allergy status to narcotic agent; Z88.8 Allergy status to other drugs, medicaments and biological substances
CPT/HCPCS: 93005; 93306; 85025 ×2; 80048 ×2; 36415; 83735; 84100; 85610; 80061; 82947 ×3; 80076; 85730; 84443; 84484 ×2; 84439; 71045; 73030; 93454; 76937; 96374; 99285; C1893; Q9966; J1644 ×2; J2003; J2250; J3010; J2405; J1815 ×2; G0378 ×4; J7040; J7030; 99152; 99153; J0461; J2310